=== PATIENT | male | born 1945 | race Caucasian/White ===

== ENCOUNTER 2019-08-17 17:09 | Inpatient (IN) ==
--- NOTE | 2019-08-17 19:00 | Emergency Department Note ---
History of Present Illness General Chief complaint: Infection, Wound Stated complaint: RT FOOT OPEN WOUND, BLACK Time Seen by Provider: 08/17/19 18:46 History of Present Illness Maximum Pain Intensity: 8 This is a 74-year-old male with a history of insulin-dependent diabetes, open heart surgery currently anticoagulated on Coumadin that presents to the emergency department via private vehicle accompanied by with complaints of "right foot open wound, black". The patient states this all began 3 months ago. He went to have a toenail removed by Dr. Rios, tablet tester in the [place] area. Patient states that then he returned and there was another procedure and then he notes an infection later developed and he had to go to the [facility] and was admitted over the of this past year for 4 days. He states that he was discharged home on p.o. antibiotics and then followed up with Dr. Delaney, tablet tester. He was then placed upon Keflex. Patient notes that over the past few days the redness has increased as well as soreness in the right foot. He was concerned therefore prompting his arrival here today. His current pain is an 8/10. Home Medications Home Medications Medication Instructions Recorded Confirmed Type aspirin [Aspirin Low Dose] 81 mg PO DAILY 08/17/19 08/17/19 History atorvastatin 80 mg PO DAILY 08/17/19 08/17/19 History carvedilol 3.125 mg PO BIDM 08/17/19 08/17/19 History cephalexin 500 mg PO Q8H 08/17/19 08/17/19 History furosemide 40 mg PO DAILY PRN 08/17/19 08/17/19 History insulin glargine [Lantus Solostar 40 unit SUBCUT HS 08/17/19 08/17/19 History U-100 Insulin] losartan 25 mg PO DAILY 08/17/19 08/17/19 History oxycodone 5 mg PO Q6H PRN 08/17/19 08/17/19 History spironolactone 25 mg PO DAILY 08/17/19 08/17/19 History warfarin 10 mg PO DAILY 08/17/19 08/17/19 History Allergies Allergy/AdvReac Type Severity Reaction Status Date / Time No Known Allergies Allergy Unverified 08/17/19 21:21 Past Med/Surg History Medical History Diabetes Surgical History History of open heart surgery Social History Preferred Language: [place] Feels Safe at Home: Yes Smoking Status: Former smoker Review of Systems A total of 10 systems reviewed and were otherwise negative Physical Exam Vital Signs Vital Signs - 24 hr 08/17/19 17:20 08/17/19 19:09 08/17/19 21:09 Temperature 36.6 C Temperature Source Oral Pulse Rate 84 Pulse Rate [Apical] 75 85 Pulse Rhythm Regular Pulse Strength Normal Respiratory Rate 20 20 20 Respiratory Effort / Characteristics Non-Labored Spontaneous Respiratory Depth Normal Respiratory Pattern Regular Blood Pressure 116/63 Blood Pressure [Left Arm] 120/62 133/56 L Blood Pressure Mean 80 Blood Pressure Mean [Left Arm] 81 81 Blood Pressure Position Sitting Pulse Oximetry 96 98 97 Oxygen Delivery Method Room Air Room Air Room Air Sepsis Recent Fever Within 48 Hours No Sepsis New/Unexplained Change in Mental Status No Sepsis Action Taken by Nursing No Action Required 08/17/19 22:25 Temperature Temperature Source Pulse Rate Pulse Rate [Apical] 80 Pulse Rhythm Pulse Strength Respiratory Rate 21 Respiratory Effort / Characteristics Respiratory Depth Respiratory Pattern Blood Pressure Blood Pressure [Left Arm] 136/67 Blood Pressure Mean Blood Pressure Mean [Left Arm] 90 Blood Pressure Position Pulse Oximetry 94 Oxygen Delivery Method Room Air Sepsis Recent Fever Within 48 Hours Sepsis New/Unexplained Change in Mental Status Sepsis Action Taken by Nursing VITAL SIGNS - Vital signs and nursing notes were reviewed. Stable and afebrile. GENERAL -74-year-old male appearing his stated age who is in no acute distress. Communicates well with provider and answers questions appropriately. SKIN -the right first toe is black in color with breakdown of tissue on the medial aspect with purplish hue and decreased cap refill on the lateral aspect and both of these color deformities extend to the MTP joint. There is then erythema that extends into much of the foot. Patient is tender throughout the right foot as well as right ankle region. The remainder of the toes are within normal limits. HEAD - NC/AT. EYES - Sclera anicteric. MOUTH/OROPHARYNX - Without perioral cyanosis. LUNGS: Normal vesicular breath sounds CTA B/L. No wheezes, rales, or rhonchi appreciated. CARDIAC - RRR with S1/S2. No murmur, rubs, or gallops appreciated. EXTREMITIES - No clubbing or peripheral cyanosis. No pretibial edema present. Skin as above. Tenderness overlying the right foot and ankle. Erythema extends from the right first MTP into the right ankle region. +5/5 strength noted in UE/LE bilaterally. NEUROLOGIC - Cranial nerves II through XII grossly intact. There is vascular deficit in the right first toe. PSYCH - A&O, and cooperates fully with examiner. Pt is very pleasant and interacts well with examiner. Course Administered Medications Discontinued Medications Piperacillin Sod/Tazobactam Sod (Zosyn) 4.5 gm in 120 mls @ 240 mls/hr IV NOW ONE Stop: 08/17/19 19:37 Last Infusion: 08/17/19 20:11 Dose: 0 mls/hr Documented by: [id number] Admin: 08/17/19 19:37 Dose: 240 mls/hr Documented by: [id number] Vancomycin HCl 2,250 mg/ (Sodium Chloride) 545 mls @ 200 mls/hr IV NOW ONE Stop: 08/17/19 22:33 Last Admin: 08/17/19 22:08 Dose: 200 mls/hr Documented by: [id number] Insulin Glargine (Lantus Solostar Pen) 5 units SC NOW STA Stop: 08/17/19 20:40 Last Admin: 08/17/19 22:08 Dose: 5 units Documented by: [id number] Cosigned by: [id number] Medical Decision Making Laboratory Data Result diagrams: 08/17/19 19:00 08/17/19 19:00 Lab Results 08/17/19 08/17/19 08/17/19 Range/Units 19:00 19:00 19:00 WBC 9.62 (4.8-10.8) K/uL RBC 4.20 L (4.7-6.1) M/uL Hgb 12.2 L (14.0-18.0) g/dL Hct 36.3 L (42-52) % MCV 86.4 (80-100) fL MCH 29.0 (25-34) pg MCHC 33.6 (32-36) g/dL RDW Std Deviation 42.0 (36.4-46.3) fL RDW Coeff of Yenny 13.3 (11.5-14.5) % Plt Count 168 (130-400) K/uL MPV 10.2 (7.4-10.4) fL Immature Gran % (Auto) 0.1 % Neut % (Auto) 83.7 % Lymph % (Auto) 9.6 % [place] % (Auto) 5.6 % Eos % (Auto) 0.8 % Baso % (Auto) 0.2 % Immature Gran # (Auto) 0.01 (0.00-0.02) K/uL Neut # (Auto) 8.05 H (1.4-6.5) K/uL Lymph # (Auto) 0.92 L (1.2-3.4) K/uL [place] # (Auto) 0.54 (0.11-0.59) K/uL Eos # (Auto) 0.08 (0-0.5) K/uL Baso # (Auto) 0.02 (0-0.2) K/uL ESR 85 H (0-14) mm/hr PT 29.0 H (9.0-12.0) Seconds INR 3.1 H (0.9-1.1) APTT 44.5 H (21.0-31.0) Seconds PTT Ratio 1.6 Sodium (136-145) mmol/L Potassium (3.5-5.1) mmol/L Chloride (98-107) mmol/L Carbon Dioxide (21-32) mmol/L Anion Gap (3-11) BUN (7-18) mg/dl Creatinine (0.6-1.4) mg/dl Est Cr Clr Drug Dosing ml/min Est GFR ( Amer) Est GFR (Non-Af Amer) BUN/Creatinine Ratio (10-20) Glucose (70-99) mg/dl Lactate (0.4-2.0) mmol/L Calcium (8.5-10.1) mg/dl Magnesium (1.8-2.4) mg/dl Total Bilirubin (0.2-1) mg/dl AST (15-37) U/L ALT (12-78) U/L Alkaline Phosphatase (45-117) U/L C-Reactive Protein (0-0.29) mg/dl Total Protein (6.4-8.2) gm/dl Albumin (3.4-5.0) gm/dl Globulin (2.5-4.0) gm/dl Albumin/Globulin Ratio (0.9-2) TSH (0.300-4.500) uIu/ml 08/17/19 08/17/19 Range/Units 19:00 19:00 WBC (4.8-10.8) K/uL RBC (4.7-6.1) M/uL Hgb (14.0-18.0) g/dL Hct (42-52) % MCV (80-100) fL MCH (25-34) pg MCHC (32-36) g/dL RDW Std Deviation (36.4-46.3) fL RDW Coeff of Yenny (11.5-14.5) % Plt Count (130-400) K/uL MPV (7.4-10.4) fL Immature Gran % (Auto) % Neut % (Auto) % Lymph % (Auto) % [place] % (Auto) % Eos % (Auto) % Baso % (Auto) % Immature Gran # (Auto) (0.00-0.02) K/uL Neut # (Auto) (1.4-6.5) K/uL Lymph # (Auto) (1.2-3.4) K/uL [place] # (Auto) (0.11-0.59) K/uL Eos # (Auto) (0-0.5) K/uL Baso # (Auto) (0-0.2) K/uL ESR (0-14) mm/hr PT (9.0-12.0) Seconds INR (0.9-1.1) APTT (21.0-31.0) Seconds PTT Ratio Sodium 132 L (136-145) mmol/L Potassium 5.1 (3.5-5.1) mmol/L Chloride 100 (98-107) mmol/L Carbon Dioxide 28 (21-32) mmol/L Anion Gap 4.0 (3-11) BUN 43 H (7-18) mg/dl Creatinine 1.58 H (0.6-1.4) mg/dl Est Cr Clr Drug Dosing 47.3 ml/min Est GFR ( Amer) 49.2 Est GFR (Non-Af Amer) 42.5 BUN/Creatinine Ratio 27.2 H (10-20) Glucose 247 H (70-99) mg/dl Lactate 1.1 (0.4-2.0) mmol/L Calcium 10.5 H (8.5-10.1) mg/dl Magnesium 2.1 (1.8-2.4) mg/dl Total Bilirubin 0.8 (0.2-1) mg/dl AST 10 L (15-37) U/L ALT 17 (12-78) U/L Alkaline Phosphatase 105 (45-117) U/L C-Reactive Protein 11.50 H (0-0.29) mg/dl Total Protein 7.9 (6.4-8.2) gm/dl Albumin 3.3 L (3.4-5.0) gm/dl Globulin 4.6 H (2.5-4.0) gm/dl Albumin/Globulin Ratio 0.7 L (0.9-2) TSH 0.515 (0.300-4.500) uIu/ml Imaging Data Radiologist's Impression: XR foot RT min 3V routine CLINICAL HISTORY: 74 years-old Male presenting with R 1st toe, black/purple, surrounding erythema. TECHNIQUE: Frontal, oblique, and lateral views of the right foot were obtained. COMPARISON: None. FINDINGS: The right first toe demonstrate soft tissue emphysema and soft tissue irregularity along the medial aspect. There is joint space loss of the interphalangeal joint to a mild to moderate degree. No evidence of osseous erosion or periosteal reaction. Mild sclerosis of the proximal phalanx of the first toe is suspected as well as sclerosis of the head of the first metatarsal. No acute fracture or malalignment. Changes are evident at the first metatarsophalangeal joint with osteophytosis and minimal joint space loss. Atherosclerosis is evident. IMPRESSION: 1. Soft tissue ulceration and emphysema of the first toe concerning for an open wound versus a gas-forming infection. No radiographic evidence of osteomyelitis apart from nonspecific sclerosis of the proximal phalanx of the first toe and head of the first metatarsal. 2. Sclerosis at these sites could suggest underlying osteonecrosis. 3. Mild degenerative changes at the first MTP joint and first interphalangeal joint. 4. No acute osseous injury. ACT 112: Negative or not required by law. Electronically signed by: Prem Mera M.D. 08/17/2019 7:39 PM US arterial duplex LE RT CLINICAL HISTORY: 74 years-old Male presenting with R 1st toe black/purple w/erythema into foot/ankle. TECHNIQUE: Real-time grayscale and color and spectral Doppler ultrasound imaging of the right lower extremity arteries was performed. Measurements calculated based on NASCET criteria. COMPARISON: None. FINDINGS: RIGHT: Common femoral artery: Extensive atherosclerotic plaque. Monophasic waveforms. Peak systolic velocity (PSV) 90 cm/s. Deep femoral artery: Atherosclerotic plaque at the origin. Monophasic waveforms. PSV 80 cm/s. Superficial femoral artery: Intimal irregularity with atherosclerotic plaque including extensively calcified plaque. Monophasic waveforms. PSV 77-101 cm/s. Popliteal artery: Atherosclerosis with multifocal calcified plaque. Monophasic waveforms. PSV 86 cm/s. Anterior tibial artery: Atherosclerosis. Monophasic waveforms. PSV 31-61 cm/s. Posterior tibial artery: Atherosclerosis. Monophasic waveforms. PSV 43-95 cm/s. Peroneal artery: Atherosclerosis. Monophasic waveforms. PSV 56-78 cm/s. Dorsalis pedis: Atherosclerosis. Monophasic waveforms. PSV 32 cm/s. ANKLE/BRACHIAL INDEX (SENIA): Patient unable to tolerate. Brachial: Right: mmHg. Left: mmHg. Ankle (posterior tibial): Right: mmHg. Left: mmHg. Ankle (dorsalis pedis): Right: mmHg. Left: mmHg. Ankle/brachial index: Right: , Left: . Reference ranges: Normal Ankle/Brachial Index (SENIA) 1.0-1.4; 0.91-0.99 borderline; < or = 0.9 abnormal (0.7-0.89 mild, 0.51-0.69 moderate, < or = 0.5 severe peripheral arterial disease). Normal Toe/Brachial Index (TBI) > or = 0.6; < 0.6 abnormal (0.34-0.59 mild, 0.12-0.34 moderate, < or = 0.11 severe peripheral arterial disease). IMPRESSION: 1. Diffuse atherosclerosis with blunting of waveforms due to flow limitations though vasculature remains patent to the level of the foot. 2. Unable to perform ankle-brachial indices. ACT 112: Negative or not required by law. Electronically signed by: Prem Mera M.D. 08/17/2019 9:18 PM MDM Narrative Patient was seen and evaluated as above in room C05. Review was performed of nursing notes and vital signs. After obtaining a thorough history and physical examination the above work up was performed. He presents to us today with what appears to be a necrotic right first toe. There is overlying cellulitis extending into the foot and ankle region. Patient is a diabetic. His vital signs are stable on entry. Blood cultures, lactic acid, and routine labs were drawn. There is no leukocytosis. There is anemia with hemoglobin of 12.2. ESR 85. INR 3.1. BUN/creatinine are elevated. Creatinine 1.58. Glucose 247. C- reactive protein 11.5. TSH reveals a euthyroid state. Patient's right lower extremity arterial ultrasound does show diffuse atherosclerosis with blunting of waveforms due to flow limitations however, vascular remains patent to the level of the foot. Given the extent of the patient's necrotic toe as well as cellulitis I do believe that further evaluation and management is warranted in the inpatient setting. On arrival he was empirically started on Zosyn as well as vancomycin once renal function was resulted. These were dosed with the input of the pharmacist. Foot x-ray as above and is concerning for ulceration and sclerosis at the sites possibly suggesting osteonecrosis which clinically is my concern. I did consult orthopedics, Dr. Petersen and we discussed the case. He will see the patient tomorrow here in the inpatient setting which I do believe is reasonable. I do not believe that the patient requires emergent amputation here tonight in the emergency department. I did answer the patient's questions and informed him upon plan of care. I then discussed the case with the hospitalist who will admit the patient for further evaluation and management. Please refer to further documentation regarding his stay. Case was discussed with the attending physician. I attest that I have personally reviewed the patient medication list. I attest that I have reviewed the patient's blood pressure and it was found to be normal. GCS: 15 In the evaluation and treatment of this patient the following differential diagnoses were entertained: Fracture, dislocation, subluxation, necrosis, gas- forming organism, abscess, cellulitis, sepsis, among others. Impression & Plan Necrosis of toe, Cellulitis of foot, right Discharge Plan Visit Data Chief Complaint: Infection, Wound Stated Complaint: RT FOOT OPEN WOUND, BLACK ED Provider: Pranay Escalera ED Midlevel Provider: Vinnie Garcia Discharge Problem: Necrosis of toe, Cellulitis of foot, right Patient Disposition: Admitted As Inpatient Condition: Good Forms Stand Alone Forms: My [facility] Prescriptions Prescriptions: No Action carvedilol 3.125 mg Tablet 3.125 mg PO BIDM RF: 0 losartan 25 mg tablet 25 mg PO DAILY RF: 0 furosemide 40 mg tablet 40 mg PO DAILY PRN (Reason: WEIGHT GAIN/FLUID RETENTION) RF: 0 spironolactone 25 mg tablet 25 mg PO DAILY RF: 0 Lantus Solostar U-100 Insulin 100 unit/mL (3 mL) insulin pen 40 unit SUBCUT HS RF: 0 atorvastatin 80 mg tablet 80 mg PO DAILY RF: 0 cephalexin 500 mg capsule 500 mg PO Q8H RF: 0 warfarin 5 mg tablet 10 mg PO DAILY RF: 0 oxycodone 5 mg tablet 5 mg PO Q6H PRN (Reason: Pain) RF: 0 aspirin [Aspirin Low Dose] 81 mg Tablet,Delayed Release (Dr/Ec) 81 mg PO DAILY RF: 0 Referrals Referrals: Mikey Segura DO [Primary Care Provider] -
[2019-08-17] MEDS ORDERED: PIPERACILL/TAZOBAC CONSULT ACTIVE PRN (19:08)
[2019-08-17] MEDS ORDERED: PIPERACILLIN/TAZOBACTAM 4.5 GM/120 ML BAG IV ONE (19:08)
[2019-08-17 19:20] LABS: Basophils # (auto) 0.02 K/uL (0-0.2); Basophils % (auto) 0.2 %; Eosinophils # (auto) 0.08 K/uL (0-0.5); Eosinophils % (auto) 0.8 %; Hematocrit (blood only) 36.3 % (42-52); Hemoglobin 12.2 g/dL (14.0-18.0); Immature Granulocytes # (auto) 0.01 K/uL (0.00-0.02); Immature Granulocytes % (auto) 0.1 %; Lymphocytes # (auto) 0.92 K/uL (1.2-3.4); Lymphocytes % (auto) 9.6 %; Mean Corpuscular Hgb Conc 33.6 g/dL (32-36); Mean Corpuscular Volume 86.4 fL (80-100); Mean Platelet Volume 10.2 fL (7.4-10.4); Monocytes # (auto) 0.54 K/uL (0.11-0.59); Monocytes % (auto) 5.6 %; Neutrophils # (auto) 8.05 K/uL (1.4-6.5); Neutrophils % (auto) 83.7 %; Platelet Count 168 K/uL (130-400); RDW Coefficient of Variation 13.3 % (11.5-14.5); White Blood Count 9.62 K/uL (4.8-10.8)
--- NOTE | 2019-08-17 19:41 | XRay Report ---
XR foot RT min 3V routine CLINICAL HISTORY: 74 years-old Male presenting with R 1st toe, black/purple, surrounding erythema. TECHNIQUE: Frontal, oblique, and lateral views of the right foot were obtained. COMPARISON: None. FINDINGS: The right first toe demonstrate soft tissue emphysema and soft tissue irregularity along the medial a spect. There is joint space loss of the interphalangeal joint to a mild to moderate degree. No eviden ce of osseous erosion or periosteal reaction. Mild sclerosis of the proximal phalanx of the first toe is suspected as well as sclerosis of the head of the first metatarsal. No acute fracture or malalign ment. Changes are evident at the first metatarsophalangeal joint with osteophytosis and minimal joint space loss. Atherosclerosis is evident. IMPRESSION: 1. Soft tissue ulceration and emphysema of the first toe concerning for an open wound versus a gas-f orming infection. No radiographic evidence of osteomyelitis apart from nonspecific sclerosis of the p roximal phalanx of the first toe and head of the first metatarsal. 2. Sclerosis at these sites could suggest underlying osteonecrosis. 3. Mild degenerative changes at the first MTP joint and first interphalangeal joint. 4. No acute osseous injury. ACT 112: Negative or not required by law. Electronically signed by: Prem Mera M.D. 08/17/2019 7:39 PM
[2019-08-17 19:42] LABS: INR 3.1 (0.9-1.1); Partial Thromboplastin Ratio 1.6; Partial Thromboplastin Time 44.5 Seconds (21.0-31.0)
[2019-08-17 19:45] LABS: Albumin Level 3.3 gm/dl (3.4-5.0); BUN Creatinine Ratio 27.2 (10-20); Calcium 10.5 mg/dl (8.5-10.1); Creatinine Clr Calc Pharmacy 47.3 ml/min; Est GFR (African American) 49.2; Est GFR (Non-African American) 42.5; Magnesium 2.1 mg/dl (1.8-2.4); Potassium 5.1 mmol/L (3.5-5.1)
[2019-08-17 19:48] LABS: Albumin Globulin Ratio 0.7 (0.9-2); Bilirubin,Total 0.8 mg/dl (0.2-1); C Reactive Protein 11.5 mg/dl (0-0.29); Globulin 4.6 gm/dl (2.5-4.0); Total Protein 7.9 gm/dl (6.4-8.2)
[2019-08-17] MEDS ORDERED: VANCOMYCIN HCL 2,250 MG in SODIUM CHLORIDE 0.9% 500 ML IV ONE (19:50)
[2019-08-17] MEDS ORDERED: VANCOMYCIN CONSULT ACTIVE PRN (19:50)
[2019-08-17] MEDS ORDERED: INSULIN GLARGINE SOLOSTAR 100 UNITS/ML 3 ML PEN SC STA (20:39)
[2019-08-17 21:01] LABS: Thyroid Stimulating Hormone 0.515 uIu/ml (0.300-4.500)
--- NOTE | 2019-08-17 21:20 | Ultrasound Report ---
US arterial duplex LE RT CLINICAL HISTORY: 74 years-old Male presenting with R 1st toe black/purple w/erythema into foot/ankle . TECHNIQUE: Real-time grayscale and color and spectral Doppler ultrasound imaging of the right lower e xtremity arteries was performed. Measurements calculated based on NASCET criteria. COMPARISON: None. FINDINGS: RIGHT: Common femoral artery: Extensive atherosclerotic plaque. Monophasic waveforms. Peak systolic velocity (PSV) 90 cm/s. Deep femoral artery: Atherosclerotic plaque at the origin. Monophasic waveforms. PSV 80 cm/s. Superficial femoral artery: Intimal irregularity with atherosclerotic plaque including extensively ca lcified plaque. Monophasic waveforms. PSV 77-101 cm/s. Popliteal artery: Atherosclerosis with multifocal calcified plaque. Monophasic waveforms. PSV 86 cm/s . Anterior tibial artery: Atherosclerosis. Monophasic waveforms. PSV 31-61 cm/s. Posterior tibial artery: Atherosclerosis. Monophasic waveforms. PSV 43-95 cm/s. Peroneal artery: Atherosclerosis. Monophasic waveforms. PSV 56-78 cm/s. Dorsalis pedis: Atherosclerosis. Monophasic waveforms. PSV 32 cm/s. ANKLE/BRACHIAL INDEX (SENIA): Patient unable to tolerate. Brachial: Right: mmHg. Left: mmHg. Ankle (posterior tibial): Right: mmHg. Left: mmHg. Ankle (dorsalis pedis): Right: mmHg. Left: mmHg. Ankle/brachial index: Right: , Left: . Reference ranges: Normal Ankle/Brachial Index (SENIA) 1.0-1.4; 0.91-0.99 borderline; < or = 0.9 abnormal (0.7-0.89 mild, 0.51-0.69 moderate, < or = 0.5 severe peripheral arterial disease). Normal Toe/Brachial Index (TBI) > or = 0.6; < 0.6 abnormal (0.34-0.59 mild, 0.12-0.34 moderate, < or = 0.11 severe peripheral arterial disease). IMPRESSION: 1. Diffuse atherosclerosis with blunting of waveforms due to flow limitations though vasculature rem ains patent to the level of the foot. 2. Unable to perform ankle-brachial indices. ACT 112: Negative or not required by law. Electronically signed by: Prem Mera M.D. 08/17/2019 9:18 PM
--- NOTE | 2019-08-17 21:41 | XRay Report ---
XR chest 1V portable CLINICAL HISTORY: 73 years-old Male presenting with renal failure. TECHNIQUE: Portable upright AP view of the chest was obtained. COMPARISON: None. FINDINGS: Left subclavian implanted cardiac defibrillator with single lead to the right ventricular apex. Media n sternotomy wires. Atherosclerosis of the aortic arch. Cardiac silhouette moderately enlarged. Mild pulmonary vascular prominence. Lungs may be mildly hyperinflated. No focal opacity. No large effusion or pneumothorax. Degenerative changes of the thoracic spine. Upper abdomen normal. IMPRESSION: 1. Cardiomegaly with mild volume overload. No advanced congestive change or pulmonary edema. ACT 112: Negative or not required by law. Electronically signed by: Prem Mera M.D. 08/17/2019 9:40 PM
--- NOTE | 2019-08-17 22:05 | History & Physical Report ---
Date of Service August 17, 2019 Assessment & Plan (1) CHF (congestive heart failure): chronic systolic heart failure secondary ischemic cardiomyopathy (EF less than 20% TTE, 2016) status post ICD, CAD as per records Equivocal volume status Congestion on x-ray although patient seems intravascularly dry w/ ARF on CKD, hypercalcemia LV aneurysm status post surgery on Coumadin, INR valvular heart disease (mild MR/ as per records) CAD/PVD as per records Gangrenous right great toe (diabetic foot infection) DM2, insulin requiring, suboptimal control as of recent outpatient hemoglobin A1c of 8.17 April 2019 chronic anemia, hemoglobin slightly lower than baseline past tobacco abuse PCU Albumin 1 dose for now Strict I/Os, daily weights Update TTE given history of valvular heart disease on 2016 echo Hold losartan, spironolactone for now given borderline hyperkalemia Orthopedics consult RE diabetic toe infection (ER provider already in touch with Dr. Petersen.) Cardiology consult to optimize patient cardiac status prior to surgery. Appropriate to hold Coumadin for now. Basal insulin, ISS BG goal [id number], update hemoglobin A1c Anemia work-up, transfuse PRBC if hemoglobin less than 8 and or for symptomatic anemia DVT prophylaxis. SCDs if INR less than 2 while Coumadin on hold Full code Patient's requesting updates from providers. . Jo Zhao, contact #[phone]. Case discussed Dr. Petersen. He will evaluate patient in AM. . History of Present Illness Chief Complaint: Worsening right great toe infection Primary Care Provider: Mikey Segura DO History obtained from patient, family, and records. Medical history significant for chronic systolic heart failure secondary ischemic cardiomyopathy (EF less than 20% TTE, 2016) status post ICD, LV aneurysm status post surgery on Coumadin, valvular heart disease (mild MR/ as per records), CAD/PVD as per records, DM2, insulin requiring, CRI (baseline creatinine 1.3-1.4), chronic anemia (baseline hemoglobin of 13), past tobacco abuse. Last month, patient developed right great toe swelling after toenail taken out by his coat maker. Patient confined for a few days at [facility]. Patient discharged on antibiotic course which did not really help swelling as per patient. 2 weeks ago, patient noted left great toe turning black. With increased pain. No fever, no chills. No purulent drainage as per patient. Patient denies chest pain, S OB, unusual fluid retention. Patient directed to ER by PCP when called office today. 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 Allergies Allergy/AdvReac Type Severity Reaction Status Date / Time No Known Allergies Allergy Unverified 08/17/19 21:21 Home Medications Home Medications Medication Instructions Recorded Confirmed Type aspirin [Aspirin Low Dose] 81 mg PO DAILY 08/17/19 08/17/19 History atorvastatin 80 mg PO DAILY 08/17/19 08/17/19 History carvedilol 3.125 mg PO BIDM 08/17/19 08/17/19 History cephalexin 500 mg PO Q8H 08/17/19 08/17/19 History furosemide 40 mg PO DAILY PRN 08/17/19 08/17/19 History insulin glargine [Lantus Solostar 40 unit SUBCUT HS 08/17/19 08/17/19 History U-100 Insulin] losartan 25 mg PO DAILY 08/17/19 08/17/19 History oxycodone 5 mg PO Q6H PRN 08/17/19 08/17/19 History spironolactone 25 mg PO DAILY 08/17/19 08/17/19 History warfarin 10 mg PO DAILY 08/17/19 08/17/19 History Past Med/Surg History Medical History (Updated 08/18/19 @ 16:05 by Obinna Rasmussen MD) Anemia Aortic stenosis CAD (coronary artery disease) CHF (congestive heart failure) Diabetes Ischemic cardiomyopathy Left ventricular aneurysm Necrosis of toe (Acute) Renal failure (ARF), acute on chronic Surgical History (Updated 08/18/19 @ 15:58 by Obinna Rasmussen MD) History of open heart surgery History of open heart surgery S/P ICD (internal cardiac defibrillator) procedure Social History Preferred Language: Bengali Communication Ability: Effective Beliefs That Will Affect Care: None Current Living Situation: Spouse Other Information That Helps Us Care for You: No Feels Safe at Home: Yes Safety Concerns: Feels Safe At This Time Smoking Status: Former smoker Do You Dip or Chew Tobacco: No ; Hx Alcohol Use: No Hx Substance Use: No Review of Systems Review of Systems: As per HPI, all 10 systems reviewed, all other ROS negative Physical Exam Physical Exam: GENERAL: uncomfortable, no respiratory distress SKIN: Pallor , warm HEENT: Pale palpebral conjunctivae, no ptosis, dry buccal mucosa, nasal cannula in place NECK : Supple, no tenderness CHEST : Decreased breath sounds , no tenderness HEART : Diminished S1-S2, systolic murmur ABDOMEN: Some distention, nontender EXTREMITIES : Minimal LE swelling, no LE tenderness, right toe gangrene with tenderness, no other conspicuous deformities noted NEUROLOGIC : Coherent, no facial asymmetry, mild hearing impairment, no other gross focality Results & Data Vital Signs (Past 12 Hours) Vital Signs Temp Pulse Resp BP Pulse Ox 08/17/19 17:20 36.6 C 84 20 116/63 96 Laboratory Results Laboratory Results WBC 9.62 K/uL (4.8-10.8) 08/17/19 19:00 RBC 4.20 M/uL (4.7-6.1) L 08/17/19 19:00 Hgb 12.2 g/dL (14.0-18.0) L 08/17/19 19:00 Hct 36.3 % (42-52) L 08/17/19 19:00 MCV 86.4 fL (80-100) 08/17/19 19:00 MCH 29.0 pg (25-34) 08/17/19 19:00 MCHC 33.6 g/dL (32-36) 08/17/19 19:00 RDW Std Deviation 42.0 fL (36.4-46.3) 08/17/19 19:00 RDW Coeff of Yenny 13.3 % (11.5-14.5) 08/17/19 19:00 Plt Count 168 K/uL (130-400) 08/17/19 19:00 MPV 10.2 fL (7.4-10.4) 08/17/19 19:00 Immature Gran % (Auto) 0.1 % 08/17/19 19:00 Neut % (Auto) 83.7 % 08/17/19 19:00 Lymph % (Auto) 9.6 % 08/17/19 19:00 [place] % (Auto) 5.6 % 08/17/19 19:00 Eos % (Auto) 0.8 % 08/17/19 19:00 Baso % (Auto) 0.2 % 08/17/19 19:00 Immature Gran # (Auto) 0.01 K/uL (0.00-0.02) 08/17/19 19:00 Neut # (Auto) 8.05 K/uL (1.4-6.5) H 08/17/19 19:00 Lymph # (Auto) 0.92 K/uL (1.2-3.4) L 08/17/19 19:00 [place] # (Auto) 0.54 K/uL (0.11-0.59) 08/17/19 19:00 Eos # (Auto) 0.08 K/uL (0-0.5) 08/17/19 19:00 Baso # (Auto) 0.02 K/uL (0-0.2) 08/17/19 19:00 ESR 85 mm/hr (0-14) H 08/17/19 19:00 PT 29.0 Seconds (9.0-12.0) H 08/17/19 19:00 INR 3.1 (0.9-1.1) H 08/17/19 19:00 APTT 44.5 Seconds (21.0-31.0) H 08/17/19 19:00 PTT Ratio 1.6 08/17/19 19:00 Sodium 132 mmol/L (136-145) L 08/17/19 19:00 Potassium 5.1 mmol/L (3.5-5.1) 08/17/19 19:00 Chloride 100 mmol/L (98-107) 08/17/19 19:00 Carbon Dioxide 28 mmol/L (21-32) 08/17/19 19:00 Anion Gap 4.0 (3-11) 08/17/19 19:00 BUN 43 mg/dl (7-18) H 08/17/19 19:00 Creatinine 1.58 mg/dl (0.6-1.4) H 08/17/19 19:00 Est Cr Clr Drug Dosing 47.3 ml/min 08/17/19 19:00 Est GFR ( Amer) 49.2 08/17/19 19:00 Est GFR (Non-Af Amer) 42.5 08/17/19 19:00 BUN/Creatinine Ratio 27.2 (10-20) H 08/17/19 19:00 Glucose 247 mg/dl (70-99) H 08/17/19 19:00 Lactate 1.1 mmol/L (0.4-2.0) 08/17/19 19:00 Calcium 10.5 mg/dl (8.5-10.1) H 08/17/19 19:00 Magnesium 2.1 mg/dl (1.8-2.4) 08/17/19 19:00 Total Bilirubin 0.8 mg/dl (0.2-1) 08/17/19 19:00 AST 10 U/L (15-37) L 08/17/19 19:00 ALT 17 U/L (12-78) 08/17/19 19:00 Alkaline Phosphatase 105 U/L (45-117) 08/17/19 19:00 C-Reactive Protein 11.50 mg/dl (0-0.29) H 08/17/19 19:00 Total Protein 7.9 gm/dl (6.4-8.2) 08/17/19 19:00 Albumin 3.3 gm/dl (3.4-5.0) L 08/17/19 19:00 Globulin 4.6 gm/dl (2.5-4.0) H 08/17/19 19:00 Albumin/Globulin Ratio 0.7 (0.9-2) L 08/17/19 19:00 TSH 0.515 uIu/ml (0.300-4.500) 08/17/19 19:00 Diagnostic Findings Right foot x-ray: 1. Soft tissue ulceration and emphysema of the first toe concerning for an open wound versus a gas-forming infection. No radiographic evidence of osteomyelitis apart from nonspecific sclerosis of the proximal phalanx of the first toe and head of the first metatarsal. 2. Sclerosis at these sites could suggest underlying osteonecrosis. 3. Mild degenerative changes at the first MTP joint and first interphalangeal joint. 4. No acute osseous injury. Arterial Dopplers ultrasound RLE : 1. Diffuse atherosclerosis with blunting of waveforms due to flow limitations though vasculature remains patent to the level of the foot. 2. Unable to perform ankle-brachial indices. Chest x-ray : Cardiomegaly with mild volume overload. No advanced congestive change or pulmonary edema. EKG as per my interpretation : Rate 70, NSR, 1 AVB, LAD, LAFB, diffuse T wave inversions
[2019-08-17] MEDS ORDERED: ALBUMIN 25% 50 ML IV STA (22:19)
[2019-08-18] MEDS ORDERED: GLUCOSE 10 TABS/TUBE PO PRN (00:08)
[2019-08-18] MEDS ORDERED: DEXTROSE 50% 50 ML SYRINGE IV PRN (00:08)
[2019-08-18] MEDS ORDERED: GLUCAGON FOR INJ 1 MG VIAL SQ PRN (00:08)
[2019-08-18] MEDS ORDERED: PROMETHAZINE HCL 12.5 MG in SODIUM CHLORIDE 0.9% 50 ML IV PRN (00:08)
[2019-08-18] MEDS ORDERED: NITROGLYCERIN SL 0.4 MG/TAB TAB SL PRN (00:08)
[2019-08-18] MEDS ORDERED: GLUCOSE 40% GEL 15 GM TUBE PO PRN (00:08)
[2019-08-18] MEDS ORDERED: CARBOHYDRATES FOR HYPOGLYCEMIA PO PRN (00:08)
[2019-08-18] MEDS ORDERED: INSULIN GLARGINE SOLOSTAR 100 UNITS/ML 3 ML PEN SC STA ×2 (00:08→07:46)
[2019-08-18] MEDS ORDERED: DAPTOMYCIN CONSULT ACTIVE PRN (00:21)
[2019-08-18] MEDS: ACETAMINOPHEN 325 MG TAB PO PRN (01:02)
[2019-08-18] MEDS: PIPERACILLIN/TAZOBACTAM 3.375 GM in DEXTROSE 5% 100 ML IV SCH ×3 (01:03→18:44)
[2019-08-18] MEDS: INSULIN ASPART 100 UNITS/ML 3 ML PEN SC SCH ×5 (01:08→20:53)
[2019-08-18] MEDS: DAPTOmycin 300 MG in SYRINGE 0 ML IV SCH (02:29)
[2019-08-18 06:33] LABS: Estimated Average Glucose 223 mg/dl; Hemoglobin A1C 9.4 % (4.5-5.6)
[2019-08-18 06:58] LABS: Basophils # (auto) 0.02 K/uL (0-0.2); Basophils % (auto) 0.3 %; Eosinophils # (auto) 0.18 K/uL (0-0.5); Eosinophils % (auto) 2.8 %; Hematocrit (blood only) 33.7 % (42-52); Hemoglobin 10.9 g/dL (14.0-18.0); Immature Granulocytes # (auto) 0.01 K/uL (0.00-0.02); Immature Granulocytes % (auto) 0.2 %; Lymphocytes # (auto) 0.57 K/uL (1.2-3.4); Mean Corpuscular Hemoglobin 28.4 pg (25-34); Mean Corpuscular Hgb Conc 32.3 g/dL (32-36); Mean Corpuscular Volume 87.8 fL (80-100); Mean Platelet Volume 10.1 fL (7.4-10.4); Monocytes # (auto) 1.01 K/uL (0.11-0.59); Monocytes % (auto) 15.9 %; Neutrophils # (auto) 4.56 K/uL (1.4-6.5); Neutrophils % (auto) 71.8 %; Platelet Count 147 K/uL (130-400); RDW Coefficient of Variation 13.2 % (11.5-14.5); RDW Standard Deviation 42.4 fL (36.4-46.3); Red Blood Count 3.84 M/uL (4.7-6.1); Reticulocyte % 1.2 % (0.5-2.0); Reticulocytes # 0.05 10^6/uL (0.02-0.10); White Blood Count 6.35 K/uL (4.8-10.8)
--- NOTE | 2019-08-18 07:23 | Orthopedic Consultation ---
Date of Consultation August 18, 2019 Assessment & Plan (1) Necrosis of toe: He has advanced necrosis of his right great toe. This will definitely need to be amputated. I am hoping I can just take it off at the level of the MTP joint to preserve a lot of his function. He is an uncontrolled diabetic and he also has some cardiac issues. His INR is currently 3.1. I would like to be able to remove it later today if possible. I am going to keep him n.p.o. for now. If he is unable to obtain cardiac clearance, or if we are unable to get the INR down some then we will push it off to a later date. I will being in discussions with the internal medicine team throughout the day to see if he is healthy enough to proceed with amputation later today or not. We talked at bedside about the amputation. He understands the risks, benefits, and alternatives to procedure would like to proceed. He is at increased risk for the procedure given his uncontrolled diabetes and he understands that if the wound from the amputation fails to heal that he may require a future amputations. The decision was made for surgery today, however, we are still waiting for medical clearance. Present on Admission?: Yes History of Present Illness Reason for Consultation: Necrotic right great toe Attending Physician: Bandar Zamora MD History of Present Illness Miguel Ángel is a pleasant 73-year-old male who is an uncontrolled diabetic. He never really had foot or lower extremity problems before. He has been seeing a stope miner up in [facility] even who was trimming his toenails of his right great toe. Unfortunately his toe became red and necrotic. He then went to [facility] and there was concerns for advanced necrosis and osteomyelitis. He was then transferred down to [facility] and admitted to the medical service. He has an elevated A1c and elevated glucose levels. He is having a lot of pain in his great toe. He is normally an independent ambulator without assistance but he is unable to ambulate with his toe the way it is. Orthopedics was consulted to evaluate and treat. Allergies Allergy/AdvReac Type Severity Reaction Status Date / Time No Known Allergies Allergy Unverified 08/17/19 21:21 Home Medications Home Medications Medication Instructions Recorded Confirmed Type aspirin [Aspirin Low Dose] 81 mg PO DAILY 08/17/19 08/17/19 History atorvastatin 80 mg PO DAILY 08/17/19 08/17/19 History carvedilol 3.125 mg PO BIDM 08/17/19 08/17/19 History cephalexin 500 mg PO Q8H 08/17/19 08/17/19 History furosemide 40 mg PO DAILY PRN 08/17/19 08/17/19 History insulin glargine [Lantus Solostar 40 unit SUBCUT HS 08/17/19 08/17/19 History U-100 Insulin] losartan 25 mg PO DAILY 08/17/19 08/17/19 History oxycodone 5 mg PO Q6H PRN 08/17/19 08/17/19 History spironolactone 25 mg PO DAILY 08/17/19 08/17/19 History warfarin 10 mg PO DAILY 08/17/19 08/17/19 History Patient History Medical History Diabetes Surgical History History of open heart surgery Social History Preferred Language: Amharic Beliefs That Will Affect Care: None Current Living Situation: Spouse Other Information That Helps Us Care for You: No Feels Safe at Home: Yes Safety Concerns: Feels Safe At This Time Smoking Status: Former smoker Hx Alcohol Use: No Hx Substance Use: No Review of Systems Review of Systems: All systems reviewed & are unremarkable except as noted in HPI & below Physical Exam Constitutional: WD/WN, vitals as above Eyes: PERRL, conjunctivae normal, anicteric sclerae ENMT: external ear and nose normal, oropharynx normal Neck: trachea midline, no thyromegaly Respiratory: normal respiratory effort Cardiovascular: RRR, no murmur, no edema Gastrointestinal (Abdomen): normal bowel sounds, soft, nontender, no hepatosplenomegaly Musculoskeletal: On physical examination of the right great toe, there is advanced necrosis throughout. The entire toe is black. The necrosis stops just distal to the MTP joint. He does have tenderness palpation especially at the distal MTP region. There is no cellulitis there are no other ulcerations of his leg. The rest of his leg actually looks pretty good. Psychiatric: A+Ox3, euthymic affect Results & Data Vital Signs (Past 12 Hours) Vital Signs Temp Pulse Pulse Resp BP BP Pulse Ox 08/18/19 03:00 36.7 C 72 19 125/62 92 08/18/19 01:26 79 08/17/19 23:45 36.6 C 77 18 159/70 H 96 08/17/19 23:37 81 20 133/60 99 08/17/19 22:25 80 21 136/67 94 08/17/19 21:09 85 20 133/56 L 97 Laboratory Results H & H 08/17/19 08/18/19 Range/Units 19:00 06:38 Hgb 12.2 L 10.9 L (14.0-18.0) g/dL Hct 36.3 L 33.7 L (42-52) % Coagulation 08/17/19 Range/Units 19:00 INR 3.1 H (0.9-1.1) PG Care Time/CCT Total # of Minutes Spent Total Time Spent with Patient: Total time spent is greater than 50% in coordination of care (as documented) at patient's floor/unit and/or counseling patient:
[2019-08-18 07:35] LABS: BUN Creatinine Ratio 29.9 (10-20); Calcium 9.9 mg/dl (8.5-10.1); Creatinine Clr Calc Pharmacy 47.7 ml/min; Est GFR (African American) 54.1; Est GFR (Non-African American) 46.7; Ferritin 991.9 ng/ml (8-388); Potassium 4.1 mmol/L (3.5-5.1)
[2019-08-18 07:52] LABS: INR 3.6 (0.9-1.1)
[2019-08-18] MEDS: HYDROmorphone INJ 0.5 MG/0.5 ML SYR IV PRN ×3 (08:20→23:27)
[2019-08-18 08:44] LABS: Folate (Folic Acid) 11.88 ng/ml (>5.38)
[2019-08-18] MEDS ORDERED: INSULIN GLARGINE SOLOSTAR 100 UNITS/ML 3 ML PEN SC SCH (09:00)
[2019-08-18] MEDS: CLINDAMYCIN 900 MG in DEXTROSE 5% 50 ML IV SCH ×2 (09:27→18:42)
[2019-08-18] MEDS: carvediloL 3.125 MG TAB PO SCH ×2 (10:53→18:43)
[2019-08-18] MEDS: ASPIRIN 81 MG ECTAB PO SCH (10:54)
--- NOTE | 2019-08-18 12:38 | Hospitalist Progress Note ---
Date of Service August 18, 2019 Assessment & Plan (1) Cellulitis of foot, right: Gangrenous right great toe (diabetic foot infection) - pt started on zosyn and daptomycin, will add clindamycin - orthopedics consulted, case discussed w/ Dr. Petersen, plan for R toe am putation later today - requests pre-op eval by cardiology given sign. cardiac hx DM2, insulin requiring, suboptimal control as of recent outpatient hemoglobin A1c of 8.17 April 2019 - current HbA1c 9.4% Basal insulin, ISS BG goal [id number] chronic anemia, hemoglobin slightly lower than baseline Anemia work-up, transfuse PRBC if hemoglobin less than 8 and or for symptomatic anemia (2) S/P ICD (internal cardiac defibrillator) procedure: (3) CHF (congestive heart failure): chronic systolic heart failure secondary ischemic cardiomyopathy (EF less than 20% TTE, 2016) status post ICD, CAD as per records Equivocal volume status Congestion on x-ray although patient seems intravascularly dry w/ ARF on CKD, hypercalcemia Hold losartan, spironolactone for now given borderline hyperkalemia 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 K for elevated INR and pt will then undergo surgery (R toe amputation) w// Erich later today Subjective Pt is lying in bed, in no acute distress. Currently denies any chest pain or shortness of breath. Says that prior to his toe becoming gangrenous, he was able to walk upstairs w/o any difficulty. Cr 1.47 INR 3.6 - discussed w/ orthopedics surgery and cardiology, will give IV vit. K and plan for amputation later today Review of Systems Review of Systems: All systems reviewed & are unremarkable except as noted in HPI & below Constitutional: + fever Musculoskeletal: + R gangrenous and tender toe Physical Exam Physical Exam: GENERAL: elderly male lying in bed in no acute distress HEENT: NC/AT, EOMI, PERRL NECK : Supple, no tenderness CHEST : Decreased breath sounds , no wheezing, rhonchi, crackles HEART : Diminished S1-S2, systolic murmur ABDOMEN: normal bowel sounds, soft, obese, some distention, nontender EXTREMITIES : Minimal LE swelling, no LE tenderness, right toe gangrene with tenderness SKIN: Pallor , warm NEUROLOGIC : alert and oriented x3,no facial asymmetry, speech fluent, moves extremities spontaneously Results & Data Vital Signs (Past 12 Hours) Vital Signs Temp Pulse Pulse Pulse Resp BP Pulse Ox 08/18/19 11:25 36.6 C 70 21 121/66 92 08/18/19 08:00 70 08/18/19 07:29 36.5 C 70 18 151/70 H 93 08/18/19 03:00 36.7 C 72 19 125/62 92 08/18/19 01:26 79 Laboratory Results 08/18/19 08/18/19 08/18/19 Range/Units 11:03 07:09 06:38 WBC (4.8-10.8) K/uL RBC (4.7-6.1) M/uL Hgb (14.0-18.0) g/dL Hct (42-52) % MCV (80-100) fL MCH (25-34) pg MCHC (32-36) g/dL RDW Std Deviation (36.4-46.3) fL RDW Coeff of Yenny (11.5-14.5) % Plt Count (130-400) K/uL MPV (7.4-10.4) fL Immature Gran % (Auto) % Neut % (Auto) % Lymph % (Auto) % Craven % (Auto) % Eos % (Auto) % Baso % (Auto) % Reticulocyte % (Auto) (0.5-2.0) % Immature Gran # (Auto) (0.00-0.02) K/uL Neut # (Auto) (1.4-6.5) K/uL Lymph # (Auto) (1.2-3.4) K/uL Craven # (Auto) (0.11-0.59) K/uL Eos # (Auto) (0-0.5) K/uL Baso # (Auto) (0-0.2) K/uL Reticulocyte # (0.02-0.10) 10^6/uL ESR (0-14) mm/hr PT (9.0-12.0) Seconds INR (0.9-1.1) APTT (21.0-31.0) Seconds PTT Ratio Sodium (136-145) mmol/L Potassium (3.5-5.1) mmol/L Chloride (98-107) mmol/L Carbon Dioxide (21-32) mmol/L Anion Gap (3-11) BUN (7-18) mg/dl Creatinine (0.6-1.4) mg/dl Est Cr Clr Drug Dosing ml/min Est GFR ( Amer) Est GFR (Non-Af Amer) BUN/Creatinine Ratio (10-20) Glucose (70-99) mg/dl POC Glucose 192 H 223 H (70-99) Estimat Average Glucose mg/dl Hemoglobin A1c (4.5-5.6) % Lactate (0.4-2.0) mmol/L Calcium (8.5-10.1) mg/dl Magnesium (1.8-2.4) mg/dl Iron (35-175) mcg/dl TIBC (250-450) mcg/dl Transferrin (200-360) mg/dl Ferritin (8-388) ng/ml Total Bilirubin (0.2-1) mg/dl AST (15-37) U/L ALT (12-78) U/L Alkaline Phosphatase (45-117) U/L C-Reactive Protein (0-0.29) mg/dl Total Protein (6.4-8.2) gm/dl Albumin (3.4-5.0) gm/dl Globulin (2.5-4.0) gm/dl Albumin/Globulin Ratio (0.9-2) Vitamin B12 (211-911) pg/ml Folate (>5.38) ng/ml TSH (0.300-4.500) uIu/ml Blood Type A Positive Antibody Screen NEGATIVE 08/18/19 08/18/19 08/18/19 Range/Units 06:38 06:38 06:38 WBC (4.8-10.8) K/uL RBC (4.7-6.1) M/uL Hgb (14.0-18.0) g/dL Hct (42-52) % MCV (80-100) fL MCH (25-34) pg MCHC (32-36) g/dL RDW Std Deviation (36.4-46.3) fL RDW Coeff of Yenny (11.5-14.5) % Plt Count (130-400) K/uL MPV (7.4-10.4) fL Immature Gran % (Auto) % Neut % (Auto) % Lymph % (Auto) % Craven % (Auto) % Eos % (Auto) % Baso % (Auto) % Reticulocyte % (Auto) (0.5-2.0) % Immature Gran # (Auto) (0.00-0.02) K/uL Neut # (Auto) (1.4-6.5) K/uL Lymph # (Auto) (1.2-3.4) K/uL Craven # (Auto) (0.11-0.59) K/uL Eos # (Auto) (0-0.5) K/uL Baso # (Auto) (0-0.2) K/uL Reticulocyte # (0.02-0.10) 10^6/uL ESR (0-14) mm/hr PT 34.0 H (9.0-12.0) Seconds INR 3.6 H (0.9-1.1) APTT (21.0-31.0) Seconds PTT Ratio Sodium 137 (136-145) mmol/L Potassium 4.1 D (3.5-5.1) mmol/L Chloride 104 (98-107) mmol/L Carbon Dioxide 30 (21-32) mmol/L Anion Gap 3.0 (3-11) BUN 44 H (7-18) mg/dl Creatinine 1.47 H (0.6-1.4) mg/dl Est Cr Clr Drug Dosing 47.7 ml/min Est GFR ( Amer) 54.1 Est GFR (Non-Af Amer) 46.7 BUN/Creatinine Ratio 29.9 H (10-20) Glucose 211 H (70-99) mg/dl POC Glucose (70-99) Estimat Average Glucose mg/dl Hemoglobin A1c (4.5-5.6) % Lactate (0.4-2.0) mmol/L Calcium 9.9 (8.5-10.1) mg/dl Magnesium (1.8-2.4) mg/dl Iron 29 L (35-175) mcg/dl TIBC 167 L (250-450) mcg/dl Transferrin 127 L (200-360) mg/dl Ferritin 991.9 H (8-388) ng/ml Total Bilirubin (0.2-1) mg/dl AST (15-37) U/L ALT (12-78) U/L Alkaline Phosphatase (45-117) U/L C-Reactive Protein (0-0.29) mg/dl Total Protein (6.4-8.2) gm/dl Albumin (3.4-5.0) gm/dl Globulin (2.5-4.0) gm/dl Albumin/Globulin Ratio (0.9-2) Vitamin B12 521 (211-911) pg/ml Folate 11.88 (>5.38) ng/ml TSH (0.300-4.500) uIu/ml Blood Type Antibody Screen 08/18/19 08/18/19 08/17/19 Range/Units 06:38 01:00 23:08 WBC 6.35 (4.8-10.8) K/uL RBC 3.84 L (4.7-6.1) M/uL Hgb 10.9 L (14.0-18.0) g/dL Hct 33.7 L (42-52) % MCV 87.8 (80-100) fL MCH 28.4 (25-34) pg MCHC 32.3 (32-36) g/dL RDW Std Deviation 42.4 (36.4-46.3) fL RDW Coeff of Yenny 13.2 (11.5-14.5) % Plt Count 147 (130-400) K/uL MPV 10.1 (7.4-10.4) fL Immature Gran % (Auto) 0.2 % Neut % (Auto) 71.8 % Lymph % (Auto) 9.0 % Craven % (Auto) 15.9 % Eos % (Auto) 2.8 % Baso % (Auto) 0.3 % Reticulocyte % (Auto) 1.2 (0.5-2.0) % Immature Gran # (Auto) 0.01 (0.00-0.02) K/uL Neut # (Auto) 4.56 (1.4-6.5) K/uL Lymph # (Auto) 0.57 L (1.2-3.4) K/uL Craven # (Auto) 1.01 H (0.11-0.59) K/uL Eos # (Auto) 0.18 (0-0.5) K/uL Baso # (Auto) 0.02 (0-0.2) K/uL Reticulocyte # 0.05 (0.02-0.10) 10^6/uL ESR (0-14) mm/hr PT (9.0-12.0) Seconds INR (0.9-1.1) APTT (21.0-31.0) Seconds PTT Ratio Sodium (136-145) mmol/L Potassium (3.5-5.1) mmol/L Chloride (98-107) mmol/L Carbon Dioxide (21-32) mmol/L Anion Gap (3-11) BUN (7-18) mg/dl Creatinine (0.6-1.4) mg/dl Est Cr Clr Drug Dosing ml/min Est GFR ( Amer) Est GFR (Non-Af Amer) BUN/Creatinine Ratio (10-20) Glucose (70-99) mg/dl POC Glucose 249 H 222 H (70-99) Estimat Average Glucose mg/dl Hemoglobin A1c (4.5-5.6) % Lactate (0.4-2.0) mmol/L Calcium (8.5-10.1) mg/dl Magnesium (1.8-2.4) mg/dl Iron (35-175) mcg/dl TIBC (250-450) mcg/dl Transferrin (200-360) mg/dl Ferritin (8-388) ng/ml Total Bilirubin (0.2-1) mg/dl AST (15-37) U/L ALT (12-78) U/L Alkaline Phosphatase (45-117) U/L C-Reactive Protein (0-0.29) mg/dl Total Protein (6.4-8.2) gm/dl Albumin (3.4-5.0) gm/dl Globulin (2.5-4.0) gm/dl Albumin/Globulin Ratio (0.9-2) Vitamin B12 (211-911) pg/ml Folate (>5.38) ng/ml TSH (0.300-4.500) uIu/ml Blood Type Antibody Screen 08/17/19 08/17/19 08/17/19 Range/Units 19:00 19:00 19:00 WBC (4.8-10.8) K/uL RBC (4.7-6.1) M/uL Hgb (14.0-18.0) g/dL Hct (42-52) % MCV (80-100) fL MCH (25-34) pg MCHC (32-36) g/dL RDW Std Deviation (36.4-46.3) fL RDW Coeff of Yenny (11.5-14.5) % Plt Count (130-400) K/uL MPV (7.4-10.4) fL Immature Gran % (Auto) % Neut % (Auto) % Lymph % (Auto) % Craven % (Auto) % Eos % (Auto) % Baso % (Auto) % Reticulocyte % (Auto) (0.5-2.0) % Immature Gran # (Auto) (0.00-0.02) K/uL Neut # (Auto) (1.4-6.5) K/uL Lymph # (Auto) (1.2-3.4) K/uL Craven # (Auto) (0.11-0.59) K/uL Eos # (Auto) (0-0.5) K/uL Baso # (Auto) (0-0.2) K/uL Reticulocyte # (0.02-0.10) 10^6/uL ESR (0-14) mm/hr PT (9.0-12.0) Seconds INR (0.9-1.1) APTT (21.0-31.0) Seconds PTT Ratio Sodium 132 L (136-145) mmol/L Potassium 5.1 (3.5-5.1) mmol/L Chloride 100 (98-107) mmol/L Carbon Dioxide 28 (21-32) mmol/L Anion Gap 4.0 (3-11) BUN 43 H (7-18) mg/dl Creatinine 1.58 H (0.6-1.4) mg/dl Est Cr Clr Drug Dosing 47.3 ml/min Est GFR ( Amer) 49.2 Est GFR (Non-Af Amer) 42.5 BUN/Creatinine Ratio 27.2 H (10-20) Glucose 247 H (70-99) mg/dl POC Glucose (70-99) Estimat Average Glucose 223 mg/dl Hemoglobin A1c 9.4 H (4.5-5.6) % Lactate 1.1 (0.4-2.0) mmol/L Calcium 10.5 H (8.5-10.1) mg/dl Magnesium 2.1 (1.8-2.4) mg/dl Iron (35-175) mcg/dl TIBC (250-450) mcg/dl Transferrin (200-360) mg/dl Ferritin (8-388) ng/ml Total Bilirubin 0.8 (0.2-1) mg/dl AST 10 L (15-37) U/L ALT 17 (12-78) U/L Alkaline Phosphatase 105 (45-117) U/L C-Reactive Protein 11.50 H (0-0.29) mg/dl Total Protein 7.9 (6.4-8.2) gm/dl Albumin 3.3 L (3.4-5.0) gm/dl Globulin 4.6 H (2.5-4.0) gm/dl Albumin/Globulin Ratio 0.7 L (0.9-2) Vitamin B12 (211-911) pg/ml Folate (>5.38) ng/ml TSH 0.515 (0.300-4.500) uIu/ml Blood Type Antibody Screen 08/17/19 08/17/19 08/17/19 Range/Units 19:00 19:00 19:00 WBC 9.62 (4.8-10.8) K/uL RBC 4.20 L (4.7-6.1) M/uL Hgb 12.2 L (14.0-18.0) g/dL Hct 36.3 L (42-52) % MCV 86.4 (80-100) fL MCH 29.0 (25-34) pg MCHC 33.6 (32-36) g/dL RDW Std Deviation 42.0 (36.4-46.3) fL RDW Coeff of Yenny 13.3 (11.5-14.5) % Plt Count 168 (130-400) K/uL MPV 10.2 (7.4-10.4) fL Immature Gran % (Auto) 0.1 % Neut % (Auto) 83.7 % Lymph % (Auto) 9.6 % Craven % (Auto) 5.6 % Eos % (Auto) 0.8 % Baso % (Auto) 0.2 % Reticulocyte % (Auto) (0.5-2.0) % Immature Gran # (Auto) 0.01 (0.00-0.02) K/uL Neut # (Auto) 8.05 H (1.4-6.5) K/uL Lymph # (Auto) 0.92 L (1.2-3.4) K/uL Craven # (Auto) 0.54 (0.11-0.59) K/uL Eos # (Auto) 0.08 (0-0.5) K/uL Baso # (Auto) 0.02 (0-0.2) K/uL Reticulocyte # (0.02-0.10) 10^6/uL ESR 85 H (0-14) mm/hr PT 29.0 H (9.0-12.0) Seconds INR 3.1 H (0.9-1.1) APTT 44.5 H (21.0-31.0) Seconds PTT Ratio 1.6 Sodium (136-145) mmol/L Potassium (3.5-5.1) mmol/L Chloride (98-107) mmol/L Carbon Dioxide (21-32) mmol/L Anion Gap (3-11) BUN (7-18) mg/dl Creatinine (0.6-1.4) mg/dl Est Cr Clr Drug Dosing ml/min Est GFR ( Amer) Est GFR (Non-Af Amer) BUN/Creatinine Ratio (10-20) Glucose (70-99) mg/dl POC Glucose (70-99) Estimat Average Glucose mg/dl Hemoglobin A1c (4.5-5.6) % Lactate (0.4-2.0) mmol/L Calcium (8.5-10.1) mg/dl Magnesium (1.8-2.4) mg/dl Iron (35-175) mcg/dl TIBC (250-450) mcg/dl Transferrin (200-360) mg/dl Ferritin (8-388) ng/ml Total Bilirubin (0.2-1) mg/dl AST (15-37) U/L ALT (12-78) U/L Alkaline Phosphatase (45-117) U/L C-Reactive Protein (0-0.29) mg/dl Total Protein (6.4-8.2) gm/dl Albumin (3.4-5.0) gm/dl Globulin (2.5-4.0) gm/dl Albumin/Globulin Ratio (0.9-2) Vitamin B12 (211-911) pg/ml Folate (>5.38) ng/ml TSH (0.300-4.500) uIu/ml Blood Type Antibody Screen Medications Administered Current Inpatient Medications Acetaminophen (Tylenol) 650 mg PO Q4H PRN PRN Reason: Pain or Fever Stop: 09/17/19 00:07 Last Admin: 08/18/19 01:02 Dose: 650 mg Documented by: Aspirin (Ecotrin Ectab) 81 mg PO DAILY [facility] Stop: 09/17/19 08:59 Last Admin: 08/18/19 10:54 Dose: Not Given Documented by: Carvedilol (Coreg) 3.125 mg PO BIDM [facility] Stop: 09/17/19 07:59 Last Admin: 08/18/19 10:53 Dose: Not Given Documented by: Dextrose (Dextrose 50%) 25 - 50 ml IV UD PRN; Protocol PRN Reason: Hypoglycemia Protocol Stop: 09/17/19 00:07 Glucagon (Glucagen) 1 mg SQ UD PRN; Protocol PRN Reason: Hypoglycemia Protocol Stop: 09/17/19 00:07 Glucose (Dex4 Glucose) 4 - 8 tabs PO UD PRN; Protocol PRN Reason: Hypoglycemia Protocol Stop: 09/17/19 00:07 Glucose (Glucose 40%) 15 - 30 gm PO UD PRN; Protocol PRN Reason: Hypoglycemia Protocol Stop: 09/17/19 00:07 Hydromorphone HCl (Dilaudid) 0.25 mg IV Q3H PRN PRN Reason: Pain Stop: 09/01/19 00:07 Last Admin: 08/18/19 08:20 Dose: 0.25 mg Documented by: Promethazine HCl 12.5 mg/ (Sodium Chloride) 50.5 mls @ 202 mls/hr IV Q6H PRN PRN Reason: Nausea And Vomiting Stop: 09/17/19 00:07 Piperacillin Sod/Tazobactam (Sod 3.375 gm/ Dextrose) 115 mls @ 28.75 mls/hr IV Q8H ESTEFANIA; Protocol Stop: 08/28/19 00:59 Last Admin: 08/18/19 09:27 Dose: 28.8 mls/hr Documented by: Daptomycin 300 mg/ Syringe 6 mls @ 0 mls/min IV Q24H ESTEFANIA; Protocol Stop: 08/28/19 01:59 Last Admin: 08/18/19 02:29 Dose: 3 mls/min Documented by: Clindamycin Phosphate 900 mg/ (Dextrose) 56 mls @ 112 mls/hr IV Q8H ESTEFANIA; Protocol Stop: 08/20/19 08:59 Last Infusion: 08/18/19 10:00 Dose: Infused Documented by: Insulin Aspart (Novolog Flexpen) 0 units SC ACHS ESTEFANIA Stop: 09/17/19 00:07 Last Admin: 08/18/19 12:07 Dose: 1 units Documented by: Insulin Glargine (Lantus Solostar Pen) 20 units SC HS EST[facility]ANIA Stop: 09/17/19 20:59 Miscellaneous (Carbohydrates For Hypoglycemia) 15 - 30 gm PO UD PRN PRN Reason: Hypoglycemia Protocol Stop: 09/17/19 00:07 Miscellaneous Information (Consult) 1 ea N/A UD PRN PRN Reason: Consult Stop: 09/16/19 19:07 Miscellaneous Information (Consult) 1 ea N/A UD PRN PRN Reason: Consult Stop: 09/17/19 00:20 Nitroglycerin (Nitrostat) 0.4 mg SL UD PRN PRN Reason: Chest Pain Stop: 09/17/19 00:07 Oxycodone HCl (Roxicodone Immediate Rel) 5 mg PO Q4H PRN PRN Reason: Pain Stop: 09/01/19 00:16
[2019-08-18] MEDS ORDERED: PHYTONADIONE 5 MG in SODIUM CHLORIDE 0.9% 50 ML IV STA (14:41)
--- NOTE | 2019-08-18 14:48 | Cardiology Consultation ---
Date of Consultation August 18, 2019 Assessment & Plan (1) Necrosis of toe: (2) CHF (congestive heart failure): (3) Preoperative cardiovascular examination: The patient's most recent outpatient cardiology visit had been in March 2019 and per the progress note stable cardiac signs and symptoms were described at that time. Patient describes stable respiratory status, no recent angina. Telemetry performed today did reveal a 5 beat run of nonsustained ventricular tachycardia observed at 7:52 AM without recurrence. His most recent EKG performed as an outpatient in 2018 revealed age undetermined inferior and anterolateral infarction pattern, repeat at this institution is currently pending. INR this morning was 3.6. Recommend proceeding with 5 mg of IV vitamin K as soon as possible for reversal of his INR. I have ordered a preoperative EKG which will be compared to his prior, that he has had an echocardiogram which we reviewed in comparison to his prior At this time he does describe stable cardiac signs and symptoms. I discussed with the patient that given his complex cardiac history he is estimated to be a moderately increased risk of perioperative cardiac complication including myocardial infarction, worsening congestive heart failure, or arrhythmia. He does however appear to be quite optimized, and has done well in the last 7 years since his aneurysm resection. It does appear that he has not responded to conservative therapy, and that surgical intervention for his great toe infection is necessary, I have concerns for osteomyelitis, and he could of course see to his defibrillator leading to life-threatening heart related infection, and therefore I think the therapeutic benefits of surgical intervention for his toe wound exceed the risks. Further recommendations be forthcoming after the EKG and echocardiogram are reviewed. History of Present Illness Attending Physician: Bandar Zamora MD History of Present Illness Miguel Ángel Zhao is a 73 year old male seen in cardiology consultation per the request of Dr Sanderson for preoperative cardiac risk stratification prior to surgical intervention for a gangrenous right great toe. The patient presented overnight with progressive necrotic tissue of his right great toe, as well as erythema over the distal portion of his foot. He states he has been receiving treatment for the toe wound since before the , and it has not responded to nonoperative measures including antibiotics. Patient follows with [facility] cardiology outreach provider from [facility] [place] the [place]. The patient has a history of chronic coronary heart disease with remote LAD territory infarction with resultant apical and apical inferior aneurysm for which he underwent surgical resection of left ventricular aneurysm on 06/19/2012 at [facility] [place]. He subsequently underwent a single-chamber [employer] AICD on 06/26/2012 for primary prevention of sudden cardiac given severe ischemic cardiomyopathy. His ejection fraction at the time of that procedure was in the range of 20%. His most recent echocardiogram prior to today had been in 2016, with findings of severe left ventricular systolic dysfunction, LVEF of less than 20%, with mild mitral regurgitation. The patient the patient describes no change in his recent cardiac status, no increase shortness of breath, chest pain, no lightheadedness or dizziness. 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 for which he underwent surgical resection in 2011, followed by single-chamber AICD Chronic systolic heart failure, LVEF in the range of 20% Type 2 diabetes mellitus Social history: Patient lives with the spouse who accompanies him at the bedside Allergies Allergy/AdvReac Type Severity Reaction Status Date / Time No Known Allergies Allergy Unverified 08/17/19 21:21 Home Medications Home Medications Medication Instructions Recorded Confirmed Type aspirin [Aspirin Low Dose] 81 mg PO DAILY 08/17/19 08/17/19 History atorvastatin 80 mg PO DAILY 08/17/19 08/17/19 History carvedilol 3.125 mg PO BIDM 08/17/19 08/17/19 History cephalexin 500 mg PO Q8H 08/17/19 08/17/19 History furosemide 40 mg PO DAILY PRN 08/17/19 08/17/19 History insulin glargine [Lantus Solostar 40 unit SUBCUT HS 08/17/19 08/17/19 History U-100 Insulin] losartan 25 mg PO DAILY 08/17/19 08/17/19 History oxycodone 5 mg PO Q6H PRN 08/17/19 08/17/19 History spironolactone 25 mg PO DAILY 08/17/19 08/17/19 History warfarin 10 mg PO DAILY 08/17/19 08/17/19 History Patient History Medical History Diabetes Surgical History History of open heart surgery Social History Preferred Language: Burkinan Communication Ability: Effective Beliefs That Will Affect Care: None Current Living Situation: Spouse Other Information That Helps Us Care for You: No Feels Safe at Home: Yes Safety Concerns: Feels Safe At This Time Smoking Status: Former smoker Hx Alcohol Use: No Hx Substance Use: No Review of Systems Review of Systems: All systems reviewed & are unremarkable except as noted in HPI & below Physical Exam Physical Exam: Temp Pulse Resp BP Pulse Ox 36.6 C 70 21 121/66 92 08/18/19 11:25 08/18/19 11:25 08/18/19 11:25 08/18/19 11:25 08/18/19 11:25 Constitutional: WD/WN, vitals as above Respiratory: normal respiratory effort, lungs clear to auscultation Cardiovascular: RRR, no murmur, no edema Chest (Breasts): Additional Comments: Left infraclavicular device pocket is clean dry and intact no erythema, Gastrointestinal (Abdomen): normal bowel sounds, soft, nontender, no hepatosplenomegaly Musculoskeletal: Right great toe, with necrotic black tissue, erythema of the dorsum of the foot Neurologic: PERRL, EOMI, accommodation nl, no face palsy, no dysarthria Results & Data Vital Signs (Past 12 Hours) Vital Signs Temp Pulse Pulse Pulse Resp BP Pulse Ox 08/18/19 11:25 36.6 C 70 21 121/66 92 08/18/19 08:00 70 08/18/19 07:29 36.5 C 70 18 151/70 H 93 08/18/19 03:00 36.7 C 72 19 125/62 92 Laboratory Results Cardiac Enzymes 08/17/19 Range/Units 19:00 AST 10 L (15-37) U/L Coagulation 08/17/19 08/18/19 Range/Units 19:00 06:38 PT 29.0 H 34.0 H (9.0-12.0) Seconds APTT 44.5 H (21.0-31.0) Seconds CBC 08/17/19 08/18/19 Range/Units 19:00 06:38 WBC 9.62 6.35 (4.8-10.8) K/uL RBC 4.20 L 3.84 L (4.7-6.1) M/uL Hgb 12.2 L 10.9 L (14.0-18.0) g/dL Hct 36.3 L 33.7 L (42-52) % Plt Count 168 147 (130-400) K/uL Neut # (Auto) 8.05 H 4.56 (1.4-6.5) K/uL Lymph # (Auto) 0.92 L 0.57 L (1.2-3.4) K/uL [place] # (Auto) 0.54 1.01 H (0.11-0.59) K/uL Eos # (Auto) 0.08 0.18 (0-0.5) K/uL Baso # (Auto) 0.02 0.02 (0-0.2) K/uL Comprehensive Metabolic Panel 08/17/19 08/18/19 Range/Units 19:00 06:38 Sodium 132 L 137 (136-145) mmol/L Potassium 5.1 4.1 D (3.5-5.1) mmol/L Chloride 100 104 (98-107) mmol/L Carbon Dioxide 28 30 (21-32) mmol/L BUN 43 H 44 H (7-18) mg/dl Creatinine 1.58 H 1.47 H (0.6-1.4) mg/dl Glucose 247 H 211 H (70-99) mg/dl Calcium 10.5 H 9.9 (8.5-10.1) mg/dl AST 10 L (15-37) U/L ALT 17 (12-78) U/L Alkaline Phosphatase 105 (45-117) U/L Total Protein 7.9 (6.4-8.2) gm/dl Albumin 3.3 L (3.4-5.0) gm/dl Intake and Output 08/17/19 08/18/19 08/18/19 22:59 06:59 14:59 Intake Total 120 / 830 710 / 830 666 / 666 Balance 120 / 830 710 / 830 666 / 666 Intake: IV 120 / 830 710 / 830 171 / 171 Albumin 25% 50 ml @ 50 mls/hr 50 / 50 IV NOW STA Rx#:[id number] Cleocin 900 mg In D5w 50 ml @ 56 / 56 112 mls/hr IV Q8H ESTEFANIA Rx#: [id number] Zosyn 3.375 gm In D5 100 ml @ 115 / 115 115 / 115 28.75 mls/hr IV Q8H ESTEFANIA Rx#: [id number] ZOSYN 4.5 gm In 120 ml @ 240 120 / 120 mls/hr IV NOW ONE Rx#:[id number] Vancomycin HCl 2,250 mg In Nss 545 / 545 500 ml @ 200 mls/hr IV NOW ONE Rx#:[id number] Oral 495 / 495 Other: Other Intake Source sips # Unmeasured Voids 1 Weight 91 kg 86.6 kg 86.6 kg Patient Weight 08/19/19 06:59 Weight 86.6 kg
--- NOTE | 2019-08-18 16:02 | Anesthesiology Consultation ---
Date of Service August 18, 2019 Assessment & Plan (1) Encounter for pre-operative examination: Chart Review Chart Review: Acceptable Risk for Surgery and Patient NOT seen in Pre Admission Testing Cardiology consult 08/18/2019: EKG performed 08/18/2019 at 1453 revealed sinus rhythm at 72 bpm with first-degree AV block, age-indeterminate anterior infarct with poor R wave progression in leads V1 to V4, and diffuse deep T wave inversions in the anterior lateral preco rdial leads, age-indeterminate inferior infarction with inferior T wave inversions. Overall the tracing is unchanged compared to the prior performed as an outpatient on 08/13/2017. I had misunderstood previously, I had been under the impression that the patient had already had an echocardiogram performed this hospital stay. He has not had an echocardiogram. He has a longstanding history of severe LV systolic dysfunction, with previous resection of a large LV aneurysm. At this time, as noted, I feel that the patient is clinically optimized from a heart standpoint, with no unstable cardiac signs or symptoms, and surgical intervention is certainly warranted for his necrotic right toe. Patient is stable from my perspective to proceed to the operating room pending reversal of his INR to an acceptable level of less than 1.5. IV vitamin K has been administered, will need a repeat INR prior to surgery. Consults Requested none History Surgery Operation Date: 08/18/19 10:10 Proposed Procedures p Right Great Toe Amputation - Savage Petersen DO Height/Weight Height: 5 ft 11 in Weight: 86.6 kg Allergies Allergy/AdvReac Type Severity Reaction Status Date / Time No Known Allergies Allergy Unverified 08/17/19 21:21 Medications Home Medications Medication Instructions Recorded Confirmed Last Taken aspirin [Aspirin Low Dose] 81 mg PO DAILY 08/17/19 08/17/19 Unknown atorvastatin 80 mg PO DAILY 08/17/19 08/17/19 Unknown carvedilol 3.125 mg PO BIDM 08/17/19 08/17/19 Unknown cephalexin 500 mg PO Q8H 08/17/19 08/17/19 Unknown furosemide 40 mg PO DAILY PRN 08/17/19 08/17/19 Unknown insulin glargine [Lantus Solostar 40 unit SUBCUT HS 08/17/19 08/17/19 Unknown U-100 Insulin] losartan 25 mg PO DAILY 08/17/19 08/17/19 Unknown oxycodone 5 mg PO Q6H PRN 08/17/19 08/17/19 Unknown spironolactone 25 mg PO DAILY 08/17/19 08/17/19 Unknown warfarin 10 mg PO DAILY 08/17/19 08/17/19 Unknown Active Medications Generic Name Dose Route Start Last Admin Trade Name Freq PRN Reason Stop Dose Admin Acetaminophen 650 mg 08/18/19 00:08 08/18/19 01:02 Tylenol PO 09/17/19 00:07 650 mg Q4H PRN Administration Pain or Fever Aspirin 81 mg 08/18/19 09:00 08/18/19 10:54 Ecotrin Ectab PO 09/17/19 08:59 Not Given DAILY ESTEFANIA Carvedilol 3.125 mg 08/18/19 08:00 08/18/19 10:53 Coreg PO 09/17/19 07:59 Not Given BIDM ESTEFANIA Hydromorphone HCl 0.25 mg 08/18/19 00:08 08/18/19 08:20 Dilaudid IV 09/01/19 00:07 0.25 mg Q3H PRN Administration Pain Piperacillin Sod/Tazobactam 115 mls @ 28.75 mls/hr 08/18/19 01:00 08/18/19 13:30 Sod 3.375 gm/ Dextrose IV 08/28/19 00:59 Infused Q8H ESTEFANIA Infusion Protocol Daptomycin 300 mg/ Syringe 6 mls @ 0 mls/min 08/18/19 02:00 08/18/19 02:29 IV 08/28/19 01:59 3 mls/min Q24H ESTEFANIA Administration Protocol Clindamycin Phosphate 900 mg/ 56 mls @ 112 mls/hr 08/18/19 09:00 08/18/19 10:00 Dextrose IV 08/20/19 08:59 Infused Q8H ESTEFANIA Infusion Protocol Insulin Aspart 0 units 08/18/19 00:08 08/18/19 12:07 Novolog Flexpen SC 09/17/19 00:07 1 units ACHS ESTEFANIA Administration NPO Date Last Intake of Fluids: 08/18/19 Time Last Intake of Fluids: 01:00 Date Last Intake of Solids: 08/18/19 Time Last Intake of Solids: 01:00 Past Medical History Medical History (Updated 08/18/19 @ 16:05 by Obinna Rasmussen MD) Anemia Aortic stenosis CAD (coronary artery disease) CHF (congestive heart failure) Diabetes Ischemic cardiomyopathy Left ventricular aneurysm Necrosis of toe (Acute) Renal failure (ARF), acute on chronic Patient follows [facility] cardiology outreach [place] [facility] [place] The patient has a history of chronic coronary heart disease with remote LAD territory infarction with resultant apical and apical inferior aneurysm for which he underwent surgical [place] of [place] ventricular [place] [facility] [place] He subsequently underwent a single-chamber [employer] AICD on 06/26/2012 for primary prevention of sudden cardiac given severe ischemic cardiomyopathy. His ejection fraction at the time of that procedure was in the range of 20%. His most recent echocardiogram prior to today had been in 2016, with findings of severe left ventricular systolic dysfunction, LVEF of less than 20%, with mild mitral regurgitation. Exercise / Class Metabolic Activity III < 4 Walking/Shop/Light housework Past Surgical History Surgical History History of open heart surgery History of open heart surgery S/P ICD (internal cardiac defibrillator) procedure Past Anesthesia History No Hx of Anesthesia Complications and No Family Hx of Anesthesia Complications History of PONV No Hx of PONV and No Hx of Motion Sickness Social History Smoking Status: Former smoker Do You Dip or Chew Tobacco: No Hx Alcohol Use: No Hx Substance Use: No Physical Exam Vital Signs Last Vital Signs Temp 36.6 C 08/18/19 11:25 Pulse 70 08/18/19 11:25 Resp 21 08/18/19 11:25 BP 121/66 08/18/19 11:25 Pulse Ox 92 08/18/19 11:25 Testing Laboratory Results 08/18/19 06:38 08/18/19 06:38 PT 34.0 Seconds (9.0-12.0) H 08/18/19 06:38 INR 3.6 (0.9-1.1) H 08/18/19 06:38 APTT 44.5 Seconds (21.0-31.0) H 08/17/19 19:00 Hemoglobin A1c 9.4 % (4.5-5.6) H 08/17/19 19:00 Blood Type A Positive 08/18/19 06:38 Antibody Screen NEGATIVE 08/18/19 06:38 08/18/19 08/18/19 11:03 07:09 POC Glucose 192 H 223 H Electrocardiogram Date: 08/18/19 Findings: + NSR @ (72) Sinus rhythm with 1st degree A-V block Left axis deviation Inferior infarct , age undetermined Anterior infarct , age undetermined ST & Marked T wave abnormality, consider lateral ischemia Abnormal ECG No previous ECGs available
--- NOTE | 2019-08-18 16:18 | Electrocardiogram Report ---
Test Reason : Blood Pressure : / mmHG Vent. Rate : 072 BPM Atrial Rate : 072 BPM P-R Int : 220 ms QRS Dur : 102 ms QT Int : 394 ms P-R-T Axes : 067 -50 203 degrees QTc Int : 431 ms Sinus rhythm with 1st degree A-V block Left axis deviation Anterior infarct , age undetermined Abnormal ECG No previous ECGs available Confirmed by Bib Randhawa ([id number]) on 08/18/2019 4:18:31 PM Referred By: REFERRED SELF Confirmed By:Bib Randhawa
[2019-08-18 16:21] LABS: Prothrombin Time 33.4 Seconds (9.0-12.0)
[2019-08-18 16:22] LABS: INR 3.6 (0.9-1.1)
[2019-08-18] MEDS ORDERED: PROPOFOL IV EMULSION 10 MG/ML 20 ML VIAL IV ONE (16:23)
[2019-08-18] MEDS ORDERED: DEXAMETHASONE SOD INJ 4 MG/ML VIAL ONE (16:23)
[2019-08-18] MEDS ORDERED: LIDOCAINE HCL 2% 2 ML VIAL/AMP(20MG/ML) INFIL ONE (16:23)
[2019-08-18] MEDS ORDERED: ONDANSETRON INJ 2 MG/ML 2 ML VIAL ONE (16:23)
[2019-08-18] MEDS ORDERED: BUPIVACAINE 0.25% 30 ML VIAL ONE (16:24)
[2019-08-18] MEDS ORDERED: fentaNYL citrate 100 MCG/2 ML VIAL ONE ×2 (16:24→16:45)
[2019-08-18] MEDS ORDERED: MIDAZOLAM HCL 1 MG/ML 2ML VIAL ONE (16:24)
[2019-08-18] MEDS ORDERED: PHENYLEPHRINE HCL 10 MG/ML VIAL ONE (16:44)
[2019-08-18] MEDS ORDERED: ATROPINE SULFATE 0.1 MG/ML 10ML SYR IV PRN (16:46)
[2019-08-18] MEDS ORDERED: ePHEDrine sulfate 50 MG/ML AMP IV PRN (16:46)
[2019-08-18] MEDS ORDERED: HYDROmorphone INJ 1 MG/ML SYRINGE IV PRN (16:46)
[2019-08-18] MEDS ORDERED: ONDANSETRON INJ 2 MG/ML 2 ML VIAL IV PRN (16:46)
[2019-08-18] MEDS ORDERED: fentaNYL citrate 100 MCG/2 ML VIAL IV PRN (16:46)
--- NOTE | 2019-08-18 17:14 | Operative Report ---
PG Post Operative Report Pre & Post Diagnosis Operation Date: 08/18/19 10:10 Necrotic right great toe Necrotic right great toe I identified the patient and participated in the time-out.: Yes Procedure Operation Date: 08/18/19 10:10 Amputation of right great toe with MTP disarticulation Surgeon Savage Petersen DO [employer] Mathew Burrell PAC Estimated Blood Loss 5 Findings Consistent with Post-Op Diagnosis Specimens Right great toe Complications none Disposition Disposition: Recovery Room Indications Migeul Ángel is a pleasant 73-year-old male who is been dealing with a one-month history of worsening necrosis of his right great toe. He is been to multiple doctors. He since had been admitted to the hospital. Orthopedics was consulted. After discussions with him and his , we elected to proceed with an amputation of the right great toe. Description of Procedure On August 18, 2019 he was brought down from his hospital room to the preoperative holding area. The operative extremity was identified and signed. He was then taken back to the operating room and laid on the table in the supine position. He was put under general anesthesia. The right foot was prepped and draped in sterile fashion. A timeout was done. The patient and the operative extremity was properly identified. A fishmouth incision was made around the necrosis. A sharp knife was then used to go through the soft tissue right down to bone. A swab culture was obtained. The proximal phalanx was then disarticulated from the MTP joint. I had enough soft tissue to do a nice fishmouth closure. The soft tissue edges were freshened up. There was moderate bleeding. The wound was then irrigated with a liter of normal saline solution. The wound was then closed with 3-0 nylon suture in a vertical mattress fashion. Is able to get a nice closure without much tension. A soft dressing was placed. He was then extubated and transferred to a [facility]. He was taken to the postanesthesia care unit in stable condition. He tolerated the procedure well. I attest to the content of the Intraoperative Record and any orders documented therein. Any exceptions are noted below.
--- NOTE | 2019-08-18 17:57 | Anesthesiology Progress Note ---
Date of Service August 18, 2019 Anesthesia Post Procedure Vital Signs Vital Signs: Temp Pulse Pulse Pulse Pulse Resp BP 08/18/19 17:40 77 13 08/18/19 17:30 72 14 08/18/19 17:21 36.0 C L 72 14 08/18/19 16:22 36.7 C 83 18 08/18/19 16:16 36.7 C 82 14 08/18/19 11:25 36.6 C 70 21 08/18/19 08:00 70 08/18/19 07:29 36.5 C 70 18 08/18/19 03:00 36.7 C 72 19 08/18/19 01:26 79 08/17/19 23:45 36.6 C 77 18 08/17/19 23:37 81 20 133/60 08/17/19 22:25 80 21 08/17/19 21:09 85 20 08/17/19 19:09 75 20 BP Pulse Ox 08/18/19 17:40 129/74 100 08/18/19 17:30 136/69 100 08/18/19 17:21 126/75 99 08/18/19 16:22 158/71 H 90 08/18/19 16:16 140/73 95 08/18/19 11:25 121/66 92 08/18/19 08:00 08/18/19 07:29 151/70 H 93 08/18/19 03:00 125/62 92 08/18/19 01:26 08/17/19 23:45 159/70 H 96 08/17/19 23:37 99 08/17/19 22:25 136/67 94 08/17/19 21:09 133/56 L 97 08/17/19 19:09 120/62 98 Pain Intensity Right Foot: Pain Intensity: 0 Transfer of Care Handoff Completed per policy Notes Mental Status: alert / awake / arousable and participated in evaluation Patient Amnestic to Procedure: Yes Nausea / Vomiting: adequately controlled Pain: adequately controlled Airway Patency, RR, SpO2: stable & adequate BP & HR: stable & adequate Hydration State: stable & adequate Anesthetic Complications: no major complications apparent and Pt Satisfied with anesthetic care
[2019-08-18] MEDS ORDERED: NALOXONE HCL 0.4 MG/1 ML VIAL/CARP IV PRN (18:18)
[2019-08-18] MEDS: SODIUM CHLORIDE 0.9% 1000ML 1,000 ML IV SCH (18:45)
[2019-08-18] MEDS: OXYCODONE HCL IR 5 MG TAB (IMMEDIATE RELEASE) PO PRN (19:03)
[2019-08-18] MEDS: INSULIN GLARGINE SOLOSTAR 100 UNITS/ML 3 ML PEN SC SCH (20:00)
[2019-08-19] MEDS: CLINDAMYCIN 900 MG in DEXTROSE 5% 50 ML IV SCH ×3 (00:18→17:08)
[2019-08-19] MEDS: PIPERACILLIN/TAZOBACTAM 3.375 GM in DEXTROSE 5% 100 ML IV SCH ×3 (00:18→17:09)
[2019-08-19] MEDS: SODIUM CHLORIDE 0.9% 1000ML 1,000 ML IV SCH (00:25)
[2019-08-19] MEDS: ACETAMINOPHEN 325 MG TAB PO PRN (00:53)
[2019-08-19] MEDS: DAPTOmycin 300 MG in SYRINGE 0 ML IV SCH (00:54)
[2019-08-19] MEDS: HYDROmorphone INJ 0.5 MG/0.5 ML SYR IV PRN ×3 (05:58→19:46)
--- NOTE | 2019-08-19 06:57 | Orthopedic Progress Note ---
Date of Service August 19, 2019 Assessment & Plan (1) Amputation of right great toe: The surgery went well. I was able to preserve the distal metatarsal head which should improve his function. Unfortunately, there was not great blood flow to the area. There was some blood flow but it was minimal. I do want to give this a chance to heal. I do recommend a vascular consultation to see if they can improve blood flow to his right foot. He can be weightbearing as tolerated in a hard sole shoe. Present on Admission?: No Subjective Adina was seen and examined at bedside this morning. Overall he is doing well. He is not having much pain in the foot. He is happy with his progress. He has no complaints. Physical Exam Musculoskeletal: Physical examination of the right foot, the dressing is clean and dry. He can move his lesser toes. Results & Data Vital Signs (Past 12 Hours) Vital Signs Temp Pulse Pulse Resp BP Pulse Ox 08/19/19 03:35 37.3 C 68 18 119/67 08/19/19 01:13 73 08/19/19 00:00 36.9 C 77 18 139/73 94 08/18/19 21:00 37.1 C 73 112/62 08/18/19 19:45 84 141/72 H 08/18/19 19:15 84 141/72 H PG Care Time/CCT Total # of Minutes Spent Total Time Spent with Patient: Total time spent is greater than 50% in coordination of care (as documented) at patient's floor/unit and/or counseling patient:
[2019-08-19 07:16] LABS: Hematocrit (blood only) 35.9 % (42-52); Hemoglobin 11.6 g/dL (14.0-18.0); Mean Corpuscular Hemoglobin 28.9 pg (25-34); Mean Corpuscular Hgb Conc 32.3 g/dL (32-36); Mean Corpuscular Volume 89.5 fL (80-100); Mean Platelet Volume 10.1 fL (7.4-10.4); Platelet Count 179 K/uL (130-400); RDW Coefficient of Variation 13.1 % (11.5-14.5); RDW Standard Deviation 43.2 fL (36.4-46.3); Red Blood Count 4.01 M/uL (4.7-6.1); White Blood Count 9.83 K/uL (4.8-10.8)
[2019-08-19] MEDS ORDERED: PERFLUTREN LIPID MICROSPHERE (DEFINITY) IV ONE (07:33)
[2019-08-19 07:43] LABS: BUN Creatinine Ratio 22.4 (10-20); Calcium 10.1 mg/dl (8.5-10.1); Creatinine Clr Calc Pharmacy 45.8 ml/min; Est GFR (African American) 51.5; Est GFR (Non-African American) 44.5; Magnesium 2.1 mg/dl (1.8-2.4); Potassium 4.3 mmol/L (3.5-5.1)
[2019-08-19] MEDS: OXYCODONE HCL IR 5 MG TAB (IMMEDIATE RELEASE) PO PRN ×2 (07:59→12:59)
[2019-08-19] MEDS: ASPIRIN 81 MG ECTAB PO SCH (08:00)
[2019-08-19] MEDS: MULTIVITAMIN TAB PO SCH (08:01)
[2019-08-19] MEDS: carvediloL 3.125 MG TAB PO SCH ×2 (09:29→17:42)
[2019-08-19] MEDS: INSULIN ASPART 100 UNITS/ML 3 ML PEN SC SCH ×4 (09:29→21:10)
--- NOTE | 2019-08-19 14:00 | Cardiology Progress Note ---
Date of Service August 19, 2019 Assessment & Plan (1) Ischemic cardiomyopathy: (2) Amputation of right great toe: (3) S/P ICD (internal cardiac defibrillator) procedure: Patient tolerated surgery well. Volume status stable. I have ordered a repeat INR, as I anticipate will need to reload his coumadin. Echo reveals stable findings. I am concerned about pt having PAD, based on the arterial duplex. I reviewed pt's [facility] chart, he saw Dr Stein of [facility] in 2013, and invasive angiogram was planned, however, from what I am able to determine, the patient cancelled the procedure, did not reschedule and did not follow up after. Subjective Pt feeling well. He is eager for discharge. Note mild post operative foot pain. Telemetry reveals SR with PACs in the 80-85 bpm range. Review of Systems Review of Systems: All systems reviewed & are unremarkable except as noted in HPI & below Physical Exam Physical Exam: Temp Pulse Resp BP Pulse Ox 37.7 C H 83 19 107/55 L 91 08/19/19 11:59 08/19/19 11:59 08/19/19 11:59 08/19/19 11:59 08/19/19 11:59 Constitutional: WD/WN, vitals as above Respiratory: normal respiratory effort, lungs clear to auscultation Cardiovascular: RRR, no murmur, no edema Gastrointestinal (Abdomen): normal bowel sounds, soft, nontender, no hepatosplenomegaly Neurologic: PERRL, EOMI, accommodation nl, no face palsy, no dysarthria Results & Data Vital Signs (Past 12 Hours) Vital Signs Temp Pulse Pulse Resp BP BP Pulse Ox 08/19/19 11:59 37.7 C H 83 19 107/55 L 91 08/19/19 08:23 37.1 C 78 20 133/55 L 93 08/19/19 03:35 37.3 C 68 18 119/67 Diagnostic Findings TTecho peformed today 08/19/19: technically limited study, changes consistent with h/o LV aneurysm resection, other segments contract well. LVEF ~40%
[2019-08-19 14:27] LABS: INR 1.3 (0.9-1.1); Prothrombin Time 12.8 Seconds (9.0-12.0)
[2019-08-19] MEDS ORDERED: WARFARIN SOD 7.5 MG TAB PO ONE (17:00)
--- NOTE | 2019-08-19 17:12 | Communication Note ---
Date of Service: August 19, 2019 RLE extremity duplex images reviewed with Dr Ken of interventional cardiology / endovascular medicine. Diffuse disease noted. Will proceed with duplex of aorta and iliacs to assess for more proximal disease. Coumadin DC'd. Start heparin bridge. I discussed need for further vascular work up with pt, spouse, and son at bedside.
[2019-08-19] MEDS ORDERED: Heparin IV Standard *NO* Bolus IV SCH (17:20)
[2019-08-19 18:26] LABS: Partial Thromboplastin Ratio 1.2; Partial Thromboplastin Time 33.2 Seconds (21.0-31.0)
[2019-08-19] MEDS: HEPARIN SODIUM/DEXTROSE 25,000 UNITS/500 ML BAG IV SCH (18:36)
[2019-08-19] MEDS: INSULIN GLARGINE SOLOSTAR 100 UNITS/ML 3 ML PEN SC SCH (21:10)
[2019-08-20] MEDS: PIPERACILLIN/TAZOBACTAM 3.375 GM in DEXTROSE 5% 100 ML IV SCH ×4 (01:04→23:54)
[2019-08-20] MEDS: DAPTOmycin 300 MG in SYRINGE 0 ML IV SCH (01:04)
[2019-08-20] MEDS: CLINDAMYCIN 900 MG in DEXTROSE 5% 50 ML IV SCH (01:04)
[2019-08-20 01:11] LABS: Partial Thromboplastin Ratio 1.9
[2019-08-20 01:12] LABS: Partial Thromboplastin Time 50.7 Seconds (21.0-31.0)
[2019-08-20] MEDS: HYDROmorphone INJ 0.5 MG/0.5 ML SYR IV PRN ×2 (01:33→07:24)
[2019-08-20] MEDS: ASPIRIN 81 MG ECTAB PO SCH (07:29)
[2019-08-20] MEDS: carvediloL 3.125 MG TAB PO SCH ×2 (07:29→17:41)
[2019-08-20] MEDS: MULTIVITAMIN TAB PO SCH (07:30)
[2019-08-20 07:34] LABS: Hematocrit (blood only) 32.7 % (42-52); Hemoglobin 10.9 g/dL (14.0-18.0); Mean Corpuscular Hemoglobin 28.8 pg (25-34); Mean Corpuscular Hgb Conc 33.3 g/dL (32-36); Mean Corpuscular Volume 86.3 fL (80-100); Mean Platelet Volume 10.5 fL (7.4-10.4); Platelet Count 175 K/uL (130-400); RDW Coefficient of Variation 13.1 % (11.5-14.5); RDW Standard Deviation 41.4 fL (36.4-46.3); Red Blood Count 3.79 M/uL (4.7-6.1); White Blood Count 8.07 K/uL (4.8-10.8)
[2019-08-20 07:54] LABS: Partial Thromboplastin Ratio 2.1; Partial Thromboplastin Time 57.2 Seconds (21.0-31.0)
[2019-08-20 08:11] LABS: BUN Creatinine Ratio 20.7 (10-20); Calcium 9.5 mg/dl (8.5-10.1); Creatinine Clr Calc Pharmacy 56.1 ml/min; Est GFR (African American) 65.8; Est GFR (Non-African American) 56.8
[2019-08-20] MEDS: INSULIN ASPART 100 UNITS/ML 3 ML PEN SC SCH ×4 (08:30→21:32)
--- NOTE | 2019-08-20 08:43 | Ultrasound Report ---
US aorta duplex CLINICAL HISTORY: Peripheral artery disease. Right great toe gangrene. COMPARISON STUDY: No previous studies for comparison. FINDINGS: There is no evidence of abdominal aortic aneurysm. There is no evidence of iliac artery ane urysm. The peak systolic velocity within the aorta was 84 cm/s. Peak systolic velocity within the rig ht common iliac artery was 115 cm/s. The peak systolic velocity left common iliac artery was 92 cm/s. There is scattered atheromatous plaque. There is no ultrasonographic evidence of hemodynamically sig nificant stenosis. IMPRESSION: 1. No evidence of abdominal aortic aneurysm 2. No ultrasonographic evidence of hemodynamic significant aortic or common iliac artery stenosis ACT 112: Negative or not required by law. Electronically signed by: Javier Mayo M.D. 08/20/2019 8:41 AM
--- NOTE | 2019-08-20 09:07 | Hospitalist Progress Note ---
Date of Service August 19, 2019 (late entry) Assessment & Plan (1) Amputation of right great toe: (2) PAD (peripheral artery disease): (3) Cellulitis of foot, right: Gangrenous right great toe (diabetic foot infection) s/p R toe amputation - presented with gangrenous necrotic rt great toe /diabetic toe infection - pt started on zosyn and daptomycin, added clindamycin - orthopedics consulted, case discussed w/ Dr. Petersen,now pt is s/p R toe amputation (08/18/2019) Update: - wound cltx : + for MRSA PAD - underlying severe peripheral vascular disease - plan to consult interventional cardiology, Dr. Ken DM2, insulin requiring, suboptimal control as of recent outpatient hemoglobin A1c of 8.17 April 2019 - current HbA1c 9.4% Basal insulin, ISS BG goal [id number] chronic anemia, hemoglobin slightly lower than baseline Anemia work-up, transfuse PRBC if hemoglobin less than 8 and or for symptomatic anemia (4) S/P ICD (internal cardiac defibrillator) procedure: pt has AICD , would treat with IV Abx for 2-3 weeks to prevent bacterial seeding to AICD wiring complains of pain around rt foot area , increased erythema and swelling noted cont to monitor, will discuss w/ ID (5) CHF (congestive heart failure): chronic systolic heart failure secondary ischemic cardiomyopathy (EF less than 20% TTE, 2016) status post ICD, CAD as per records Equivocal volume status Congestion on x-ray although patient seems intravascularly dry w/ ARF on CKD, hypercalcemia Hold losartan, spironolactone for now given borderline hyperkalemia LV aneurysm status post surgery on Coumadin, INR valvular heart disease (mild MR/ as per records) CAD/PVD as per records Cardiology consulted, appreciate their input Subjective Pt is lying in bed, in no acute distress. S/p R toe amputation, tolerated procedure well. Currently denies any fever, chills, chest pain or shortness of breath, abd. pain, nausea or vomiting. Review of Systems Review of Systems: All systems reviewed & are unremarkable except as noted in HPI & below Constitutional: no fever and no chills Respiratory: no cough and no chest congestion Cardiovascular: no chest pain, no palpitations and no edema Gastrointestinal: no abdominal pain, no nausea and no vomiting Musculoskeletal: S/p R toe amputation Physical Exam Physical Exam: GENERAL: elderly male lying in bed in no acute distress HEENT: NC/AT, EOMI, PERRL NECK : Supple, no tenderness CHEST : Decreased breath sounds , no wheezing, rhonchi, crackles HEART : Diminished S1-S2, systolic murmur ABDOMEN: normal bowel sounds, soft, obese, some distention, nontender EXTREMITIES : Minimal LE swelling, no LE tenderness, S/p right toe amputation, clean dressings applied SKIN: Pallor , warm NEUROLOGIC : alert and oriented x3,no facial asymmetry, speech fluent, moves extremities spontaneously Results & Data Vital Signs (Past 12 Hours) Vital Signs Temp Pulse Pulse Pulse Resp BP Pulse Ox 08/19/19 23:36 88 08/19/19 23:28 36.8 C 83 22 131/74 94
--- NOTE | 2019-08-20 09:10 | Hospitalist Progress Note ---
Date of Service August 20, 2019 Assessment & Plan (1) Amputation of right great toe: (2) PAD (peripheral artery disease): (3) Cellulitis of foot, right: Gangrenous right great toe (diabetic foot infection) s/p R toe amputation - presented with gangrenous necrotic rt great toe /diabetic toe infection - pt started on zosyn and daptomycin, added clindamycin - orthopedics consulted, case discussed w/ Dr. Petersen,now pt is s/p R toe amputation (08/18/2019) - wound cltx : + for MRSA, cont. daptomycin, d/c zosyn - pt tolerated procedure well, for proper healing, may need better management of DM and PAD PAD - underlying severe peripheral vascular disease - consult interventional cardiology, Dr. Ken DM2, insulin requiring, suboptimal control as of recent outpatient hemoglobin A1c of 8.17 April 2019 - current HbA1c 9.4% Basal insulin, ISS BG goal [id number] Chronic anemia, hemoglobin slightly lower than baseline - transfuse PRBC if hemoglobin less than 8 and or for symptomatic anemia Elevated Cr - suspect CKD, likely secondary to uncontrolled DM type 2 and vasc. disease -cont. to monitor - try to avoid nephrotoxic agents (4) S/P ICD (internal cardiac defibrillator) procedure: pt has AICD , would treat with IV Abx for 2-3 weeks to prevent bacterial seeding to AICD wiring complains of pain around rt foot area , increased erythema and swelling noted cont to monitor, will discuss w/ ID (5) CHF (congestive heart failure): chronic systolic heart failure secondary ischemic cardiomyopathy (EF less than 20% TTE, 2016) status post ICD, CAD as per records Equivocal volume status Congestion on x-ray although patient seems intravascularly dry w/ ARF on CKD, hypercalcemia Hold losartan, spironolactone for now given borderline hyperkalemia 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 Pt is lying in bed in no acute distress. Denies fever, chills, chest pain, shortness of breath, abd. pain, nausea or vomiting. R toe wound open to air. No drainage from wound noted. No sign. erythema or edema. Pt ambulated earlier today. Review of Systems Review of Systems: All systems reviewed & are unremarkable except as noted in HPI & below Constitutional: no fever and no chills Respiratory: no cough, no chest congestion and no dyspnea Cardiovascular: no chest pain, no palpitations and no edema Gastrointestinal: no abdominal pain, no nausea and no vomiting Musculoskeletal: s/ p R toe amputation, wound is open to air Physical Exam Physical Exam: GENERAL: elderly male lying in bed in no acute distress HEENT: NC/AT, EOMI, PERRL NECK : Supple, no tenderness CHEST : Decreased breath sounds , no wheezing, rhonchi, crackles HEART : Diminished S1-S2, systolic murmur ABDOMEN: normal bowel sounds, soft, obese, some distention, nontender EXTREMITIES : Minimal LE swelling, no LE tenderness, S/p right toe amputation, wound open to air, wound is clean and dry w/o any significant drainage noted, no sign. edema, only mild erythema SKIN: Pallor , warm NEUROLOGIC : alert and oriented x3,no facial asymmetry, speech fluent, moves extremities spontaneously Results & Data Vital Signs (Past 12 Hours) Vital Signs Temp Pulse Pulse Pulse Resp BP Pulse Ox 08/20/19 07:39 36.9 C 80 19 151/75 H 94 08/20/19 05:17 36.8 C 76 18 127/66 94 08/19/19 23:36 88 08/19/19 23:28 36.8 C 83 22 131/74 94 Laboratory Results 08/20/19 08/20/19 08/20/19 Range/Units 07:01 06:59 06:59 WBC (4.8-10.8) K/uL RBC (4.7-6.1) M/uL Hgb (14.0-18.0) g/dL Hct (42-52) % MCV (80-100) fL MCH (25-34) pg MCHC (32-36) g/dL RDW Std Deviation (36.4-46.3) fL RDW Coeff of Yenny (11.5-14.5) % Plt Count (130-400) K/uL MPV (7.4-10.4) fL PT (9.0-12.0) Seconds INR (0.9-1.1) APTT 57.2 H* (21.0-31.0) Seconds PTT Ratio 2.1 Sodium 139 (136-145) mmol/L Potassium 4.0 (3.5-5.1) mmol/L Chloride 105 (98-107) mmol/L Carbon Dioxide 27 (21-32) mmol/L Anion Gap 7.0 (3-11) BUN 26 H (7-18) mg/dl Creatinine 1.25 (0.6-1.4) mg/dl Est Cr Clr Drug Dosing 56.1 ml/min Est GFR ( Amer) 65.8 Est GFR (Non-Af Amer) 56.8 BUN/Creatinine Ratio 20.7 H (10-20) Glucose 162 H (70-99) mg/dl POC Glucose 181 H (70-99) Calcium 9.5 (8.5-10.1) mg/dl 08/20/19 08/20/19 08/19/19 Range/Units 06:59 00:28 21:08 WBC 8.07 (4.8-10.8) K/uL RBC 3.79 L (4.7-6.1) M/uL Hgb 10.9 L (14.0-18.0) g/dL Hct 32.7 L (42-52) % MCV 86.3 (80-100) fL MCH 28.8 (25-34) pg MCHC 33.3 (32-36) g/dL RDW Std Deviation 41.4 (36.4-46.3) fL RDW Coeff of Yenny 13.1 (11.5-14.5) % Plt Count 175 (130-400) K/uL MPV 10.5 H (7.4-10.4) fL PT (9.0-12.0) Seconds INR (0.9-1.1) APTT 50.7 H* (21.0-31.0) Seconds PTT Ratio 1.9 Sodium (136-145) mmol/L Potassium (3.5-5.1) mmol/L Chloride (98-107) mmol/L Carbon Dioxide (21-32) mmol/L Anion Gap (3-11) BUN (7-18) mg/dl Creatinine (0.6-1.4) mg/dl Est Cr Clr Drug Dosing ml/min Est GFR ( Amer) Est GFR (Non-Af Amer) BUN/Creatinine Ratio (10-20) Glucose (70-99) mg/dl POC Glucose 248 H (70-99) Calcium (8.5-10.1) mg/dl 08/19/19 08/19/19 08/19/19 Range/Units 18:04 16:40 13:59 WBC (4.8-10.8) K/uL RBC (4.7-6.1) M/uL Hgb (14.0-18.0) g/dL Hct (42-52) % MCV (80-100) fL MCH (25-34) pg MCHC (32-36) g/dL RDW Std Deviation (36.4-46.3) fL RDW Coeff of Yenny (11.5-14.5) % Plt Count (130-400) K/uL MPV (7.4-10.4) fL PT 12.8 H (9.0-12.0) Seconds INR 1.3 H (0.9-1.1) APTT 33.2 H (21.0-31.0) Seconds PTT Ratio 1.2 Sodium (136-145) mmol/L Potassium (3.5-5.1) mmol/L Chloride (98-107) mmol/L Carbon Dioxide (21-32) mmol/L Anion Gap (3-11) BUN (7-18) mg/dl Creatinine (0.6-1.4) mg/dl Est Cr Clr Drug Dosing ml/min Est GFR ( Amer) Est GFR (Non-Af Amer) BUN/Creatinine Ratio (10-20) Glucose (70-99) mg/dl POC Glucose 169 H (70-99) Calcium (8.5-10.1) mg/dl 08/19/19 Range/Units 10:53 WBC (4.8-10.8) K/uL RBC (4.7-6.1) M/uL Hgb (14.0-18.0) g/dL Hct (42-52) % MCV (80-100) fL MCH (25-34) pg MCHC (32-36) g/dL RDW Std Deviation (36.4-46.3) fL RDW Coeff of Yenny (11.5-14.5) % Plt Count (130-400) K/uL MPV (7.4-10.4) fL PT (9.0-12.0) Seconds INR (0.9-1.1) APTT (21.0-31.0) Seconds PTT Ratio Sodium (136-145) mmol/L Potassium (3.5-5.1) mmol/L Chloride (98-107) mmol/L Carbon Dioxide (21-32) mmol/L Anion Gap (3-11) BUN (7-18) mg/dl Creatinine (0.6-1.4) mg/dl Est Cr Clr Drug Dosing ml/min Est GFR ( Amer) Est GFR (Non-Af Amer) BUN/Creatinine Ratio (10-20) Glucose (70-99) mg/dl POC Glucose 227 H (70-99) Calcium (8.5-10.1) mg/dl Medications Administered Current Inpatient Medications Acetaminophen (Tylenol) 650 mg PO Q4H PRN PRN Reason: Pain or Fever Stop: 09/17/19 00:07 Last Admin: 08/19/19 00:53 Dose: 650 mg Documented by: Aspirin (Ecotrin Ectab) 81 mg PO DAILY [facility] Stop: 09/17/19 08:59 Last Admin: 08/20/19 07:29 Dose: 81 mg Documented by: Carvedilol (Coreg) 3.125 mg PO BIDM [facility] Stop: 09/17/19 07:59 Last Admin: 08/20/19 07:29 Dose: 3.125 mg Documented by: Dextrose (Dextrose 50%) 25 - 50 ml IV UD PRN; Protocol PRN Reason: Hypoglycemia Protocol Stop: 09/17/19 00:07 Glucagon (Glucagen) 1 mg SQ UD PRN; Protocol PRN Reason: Hypoglycemia Protocol Stop: 09/17/19 00:07 Glucose (Dex4 Glucose) 4 - 8 tabs PO UD PRN; Protocol PRN Reason: Hypoglycemia Protocol Stop: 09/17/19 00:07 Glucose (Glucose 40%) 15 - 30 gm PO UD PRN; Protocol PRN Reason: Hypoglycemia Protocol Stop: 09/17/19 00:07 Hydromorphone HCl (Dilaudid) 0.25 mg IV Q3H PRN PRN Reason: Pain Stop: 09/01/19 00:07 Last Admin: 08/20/19 07:24 Dose: 0.25 mg Documented by: Promethazine HCl 12.5 mg/ (Sodium Chloride) 50.5 mls @ 202 mls/hr IV Q6H PRN PRN Reason: Nausea And Vomiting Stop: 09/17/19 00:07 Piperacillin Sod/Tazobactam (Sod 3.375 gm/ Dextrose) 115 mls @ 28.75 mls/hr IV Q8H [facility]; Protocol Stop: 08/28/19 00:59 Last Admin: 08/20/19 07:34 Dose: 28.8 mls/hr Documented by: Daptomycin 300 mg/ Syringe 6 mls @ 3 mls/min IV Q24H [facility]; Protocol Stop: 08/28/19 01:59 Last Admin: 08/20/19 01:04 Dose: 3 mls/min Documented by: Heparin Sodium/Dextrose (Heparin Sodium/Dextrose) 25,000 units in 500 mls @ 29 mls/hr IV .[id number] [facility]; Protocol Stop: 09/18/19 17:14 Last Titration: 08/20/19 07:17 Dose: 1,450 units/hr, 29 mls/hr Documented by: Insulin Aspart (Novolog Flexpen) 0 units SC ACHS [facility] Stop: 09/17/19 00:07 Last Admin: 08/20/19 08:30 Dose: 3 units Documented by: Insulin Glargine (Lantus Solostar Pen) 20 units SC HS [facility] Stop: 09/17/19 20:59 Last Admin: 08/19/19 21:10 Dose: 20 units Documented by: Miscellaneous (Carbohydrates For Hypoglycemia) 15 - 30 gm PO UD PRN PRN Reason: Hypoglycemia Protocol Stop: 09/17/19 00:07 Miscellaneous Information (Consult) 1 ea N/A UD PRN PRN Reason: Consult Stop: 09/16/19 19:07 Miscellaneous Information (Consult) 1 ea N/A UD PRN PRN Reason: Consult Stop: 09/17/19 00:20 Multivitamins (Multivitamin Tab) 1 tab PO QAM [facility] Stop: 09/18/19 08:59 Last Admin: 08/20/19 07:30 Dose: 1 tab Documented by: Naloxone HCl (Narcan) 0.1 mg IV Q5M PRN PRN Reason: Oversedation/Resp Depression Stop: 09/17/19 18:17 Nitroglycerin (Nitrostat) 0.4 mg SL UD PRN PRN Reason: Chest Pain Stop: 09/17/19 00:07 Oxycodone HCl (Roxicodone Immediate Rel) 5 mg PO Q4H PRN PRN Reason: Pain Stop: 09/01/19 00:16 Last Admin: 08/19/19 12:59 Dose: 5 mg Documented by:
[2019-08-20] MEDS: OXYCODONE HCL IR 5 MG TAB (IMMEDIATE RELEASE) PO PRN (11:04)
[2019-08-20] MEDS: HEPARIN SODIUM/DEXTROSE 25,000 UNITS/500 ML BAG IV SCH (12:31)
--- NOTE | 2019-08-20 12:35 | Cardiology Progress Note ---
Date of Service August 20, 2019 Assessment & Plan (1) Amputation of right great toe: Pt transferred to ICU as an isolation bed due to MRSA of operative wound culture. Not due to acute decompensation . Will return to telemetry bed when isolation room available. pt presented to > 2 months of progressive R great toe/foot pain, black necrotic tissue noted on first arrival on visual inspection. Underwent amputation, 08/18/19, which he tolerated well. Afebrile, blood cultures negative, wound culture + MRSA. Osteomyelitis, likely a consideration. Arterial duplex suggests diffuse RLE PAD. I have consulted Dr Ken to see him in endovascular medicine consultation. (2) Ischemic cardiomyopathy: Continue current medications. Chronic EKG abnormalities noted pre op , unchanged compared to 1 year ago. No anginal symptoms, stable volume status. Continue heparin gtt, due to h/o LV thrombus. (3) S/P ICD (internal cardiac defibrillator) procedure: Continue antibiotics for foot wound, need to treat his infection appropriately to prevent seeding to the AICD. (4) Left ventricular aneurysm: Stable echo findings. Coumadin on hold. Continue heparin gtt. Subjective Pt seen in ICU room 111. Denies chest pain or SOB. Telemetry reveals SR without significant arrhythmia. Review of Systems Review of Systems: All systems reviewed & are unremarkable except as noted in HPI & below Physical Exam Physical Exam: Temp Pulse Resp BP Pulse Ox 36.9 C 80 19 151/75 H 94 08/20/19 07:39 08/20/19 07:39 08/20/19 07:39 08/20/19 07:39 08/20/19 07:39 Constitutional: WD/WN, vitals as above Respiratory: normal respiratory effort, lungs clear to auscultation Cardiovascular: RRR, no murmur, no edema Gastrointestinal (Abdomen): normal bowel sounds, soft, nontender, no hepatosplenomegaly Musculoskeletal: s/p R great toe amputation , wrapped Results & Data Vital Signs (Past 12 Hours) Vital Signs Temp Pulse Pulse Resp BP Pulse Ox 08/20/19 07:39 36.9 C 80 19 151/75 H 94 08/20/19 05:17 36.8 C 76 18 127/66 94 Laboratory Results Coagulation 08/19/19 08/19/19 08/20/19 Range/Units 13:59 18:04 00:28 PT 12.8 H (9.0-12.0) Seconds APTT 33.2 H 50.7 H* (21.0-31.0) Seconds 08/20/19 Range/Units 06:59 PT (9.0-12.0) Seconds APTT 57.2 H* (21.0-31.0) Seconds CBC 08/20/19 Range/Units 06:59 WBC 8.07 (4.8-10.8) K/uL RBC 3.79 L (4.7-6.1) M/uL Hgb 10.9 L (14.0-18.0) g/dL Hct 32.7 L (42-52) % Plt Count 175 (130-400) K/uL Comprehensive Metabolic Panel 08/20/19 Range/Units 06:59 Sodium 139 (136-145) mmol/L Potassium 4.0 (3.5-5.1) mmol/L Chloride 105 (98-107) mmol/L Carbon Dioxide 27 (21-32) mmol/L BUN 26 H (7-18) mg/dl Creatinine 1.25 (0.6-1.4) mg/dl Glucose 162 H (70-99) mg/dl Calcium 9.5 (8.5-10.1) mg/dl Intake and Output 08/19/19 08/20/19 08/20/19 22:59 06:59 14:59 Intake Total 287.917 / 1509.483 655.566 / 1509.483 221.333 / 221.333 Balance 287.917 / 1509.483 655.566 / 1509.483 221.333 / 221.333 Intake: IV 187.917 / 774.483 415.566 / 774.483 221.333 / 221.333 Cleocin 900 mg In D5w 50 ml @ 56 / 168 56 / 168 112 mls/hr IV Q8H [facility] Rx#: [id number] HEPARIN SODIUM/DEXTROSE 25,000 16.917 / 261.483 244.566 / 261.483 106.333 / 106.333 units In 500 ml @ 1,450 UNITS/ HR 29 mls/hr IV .[id number] [facility] Rx #:[id number] Zosyn 3.375 gm In D5 100 ml @ 115 / 345 115 / 345 115 / 115 28.75 mls/hr IV Q8H [facility] Rx#: [id number] Oral 100 / 735 240 / 735 Other: # Unmeasured Voids 1 2 Weight 90 kg 90 kg Patient Weight 08/21/19 06:59 Weight 90 kg Medications Administered Current Inpatient Medications Acetaminophen (Tylenol) 650 mg PO Q4H PRN PRN Reason: Pain or Fever Stop: 09/17/19 00:07 Last Admin: 08/19/19 00:53 Dose: 650 mg Documented by: Aspirin (Ecotrin Ectab) 81 mg PO DAILY [facility] Stop: 09/17/19 08:59 Last Admin: 08/20/19 07:29 Dose: 81 mg Documented by: Carvedilol (Coreg) 3.125 mg PO BIDM [facility] Stop: 09/17/19 07:59 Last Admin: 08/20/19 07:29 Dose: 3.125 mg Documented by: Dextrose (Dextrose 50%) 25 - 50 ml IV UD PRN; Protocol PRN Reason: Hypoglycemia Protocol Stop: 09/17/19 00:07 Glucagon (Glucagen) 1 mg SQ UD PRN; Protocol PRN Reason: Hypoglycemia Protocol Stop: 09/17/19 00:07 Glucose (Dex4 Glucose) 4 - 8 tabs PO UD PRN; Protocol PRN Reason: Hypoglycemia Protocol Stop: 09/17/19 00:07 Glucose (Glucose 40%) 15 - 30 gm PO UD PRN; Protocol PRN Reason: Hypoglycemia Protocol Stop: 09/17/19 00:07 Hydromorphone HCl (Dilaudid) 0.25 mg IV Q3H PRN PRN Reason: Pain Stop: 09/01/19 00:07 Last Admin: 08/20/19 07:24 Dose: 0.25 mg Documented by: Promethazine HCl 12.5 mg/ (Sodium Chloride) 50.5 mls @ 202 mls/hr IV Q6H PRN PRN Reason: Nausea And Vomiting Stop: 09/17/19 00:07 Piperacillin Sod/Tazobactam (Sod 3.375 gm/ Dextrose) 115 mls @ 28.75 mls/hr IV Q8H [facility]; Protocol Stop: 08/28/19 00:59 Last Infusion: 08/20/19 11:56 Dose: Infused Documented by: Daptomycin 300 mg/ Syringe 6 mls @ 3 mls/min IV Q24H [facility]; Protocol Stop: 08/28/19 01:59 Last Admin: 08/20/19 01:04 Dose: 3 mls/min Documented by: Heparin Sodium/Dextrose (Heparin Sodium/Dextrose) 25,000 units in 500 mls @ 29 mls/hr IV .[id number] [facility]; Protocol Stop: 09/18/19 17:14 Last Titration: 08/20/19 07:17 Dose: 1,450 units/hr, 29 mls/hr Documented by: Insulin Aspart (Novolog Flexpen) 0 units SC ACHS [facility] Stop: 09/17/19 00:07 Last Admin: 08/20/19 08:30 Dose: 3 units Documented by: Insulin Glargine (Lantus Solostar Pen) 20 units SC HS [facility] Stop: 09/17/19 20:59 Last Admin: 08/19/19 21:10 Dose: 20 units Documented by: Miscellaneous (Carbohydrates For Hypoglycemia) 15 - 30 gm PO UD PRN PRN Reason: Hypoglycemia Protocol Stop: 09/17/19 00:07 Miscellaneous Information (Consult) 1 ea N/A UD PRN PRN Reason: Consult Stop: 09/16/19 19:07 Miscellaneous Information (Consult) 1 ea N/A UD PRN PRN Reason: Consult Stop: 09/17/19 00:20 Multivitamins (Multivitamin Tab) 1 tab PO QAM [facility] Stop: 09/18/19 08:59 Last Admin: 08/20/19 07:30 Dose: 1 tab Documented by: Naloxone HCl (Narcan) 0.1 mg IV Q5M PRN PRN Reason: Oversedation/Resp Depression Stop: 09/17/19 18:17 Nitroglycerin (Nitrostat) 0.4 mg SL UD PRN PRN Reason: Chest Pain Stop: 09/17/19 00:07 Oxycodone HCl (Roxicodone Immediate Rel) 5 mg PO Q4H PRN PRN Reason: Pain Stop: 09/01/19 00:16 Last Admin: 08/20/19 11:04 Dose: 5 mg Documented by:
--- NOTE | 2019-08-20 13:38 | Orthopedic Progress Note ---
Date of Service August 20, 2019 Assessment & Plan (1) Amputation of right great toe: Overall he is doing well. He is having a little bit of pain in the foot but is not too bad. He has already been up and ambulating. He does have MRSA in his wound. He is currently on antibiotics for that. His Coumadin has been stopped and he is currently on heparin. They are likely planning to do some vascular procedures in the near future. He can leave the incision open to air when he is not being active. When he is up and ambulating he can cover the incision with some gauze and an Aravind wrap to keep it from rubbing on a hard sole shoe. Present on Admission?: Yes Subjective Miguel Ángel was seen and examined at bedside. Overall is doing fairly well. He has been up and ambulating on his left foot. He is awaiting to get some vascular studies for his lower extremities. He has no complaints. Physical Exam Musculoskeletal: On physical examination of the right foot, the dressing was removed. The incision looks good. There is very little drainage and very little bleeding. Is a little bit of maceration around the edge of the wound but not much. No erythema. Results & Data Vital Signs (Past 12 Hours) Vital Signs Temp Pulse Pulse Resp BP Pulse Ox 08/20/19 07:39 36.9 C 80 19 151/75 H 94 08/20/19 05:17 36.8 C 76 18 127/66 94 PG Care Time/CCT Total # of Minutes Spent Total Time Spent with Patient: Total time spent is greater than 50% in coordination of care (as documented) at patient's floor/unit and/or counseling patient: Coding Level of Care Code None Diagnoses Amputation of right great toe S98.111A
[2019-08-20] MEDS ORDERED: PHARMACY GLYCEMIC MGMT CONSULT PRN (14:05)
[2019-08-20] MEDS ORDERED: WARFARIN SOD 7.5 MG TAB PO SCH (16:00)
[2019-08-20] MEDS ORDERED: INSULIN GLARGINE SOLOSTAR 100 UNITS/ML 3 ML PEN SC ONE (16:30)
--- NOTE | 2019-08-20 17:49 | Vascular Medicine Consultation ---
Date of Consultation August 20, 2019 Assessment & Plan (1) PAD (peripheral artery disease): 2. RT great toe necrosis post amputation 3. Type 2 DM 4. 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 Chronic systolic heart failure 6. Prior tobacco abuse Patient postop day 2 following right great necrotic toe amputation. Limited flow noted at time of surgery and sluggish flow persists on exam. Arterial duplex suggestive of diffuse right lower extremity arterial system disease Per my review of arterial duplex concern for multilevel disease particularly high-grade external iliac/SULFUR CHLORIDE OPERATOR, SFA/popliteal disease. Recommend proceeding with bilateral lower extremity angiogram to further define anatomy. Discussed risks, benefits, terms of procedure with patient and and they are willing to proceed. We will plan to perform tomorrow a.m. via left [employer]ULF[employer]LORIDE OPERATOR. In the interim continue heparin infusion. History of Present Illness Attending Physician: Bandar Zamora MD History of Present Illness Mr. Zhao is a pleasant 78 history of coronary artery disease post remote LAD infarct with resulting apical aneurysm post aneurysm resection 06/2012 on chronic anticoagulation with Coumadin, persistent severe LV dysfunction EF 20% with chronic systolic heart failure, mild regurgitation, type 2 diabetes on insulin, prior tobacco abuse and peripheral arterial disease. Patient transferred to [facility] 08/18/2019 from [facility] in the setting of necrotic right great toe and possible osteomyelitis. Underwent great toe amputation 2 days ago. Surgery uncomplicated but blood flow to area thought to be limited. Has been maintained on heparin infusion and broad-spectrum IV antibiotics. Patient reports right great toe injury initially months ago in the setting of ingrown toenail removal. Has been followed by podiatry since that time. Prior to this event denies any prior ulcerations. Does report longstanding exertional Dyspnea claudication. Was previously seen by vascular surgery back in 2013. Patient unclear of details of what led to that visit but was scheduled to undergo angiogram. Patient did not go through procedure due to a friend having complications from a vascular procedure around the same time. Right leg arterial duplex showed monophasic waveforms from SULFUR CHLORIDE OPERATOR through tibials. 2D imaging shows extensive atherosclerotic, calcified plaque but no focal high- grade stenosis/obstruction by Doppler. Aortoiliac duplex was negative for AAA or significant disease in his bilateral common iliacs. Allergies Allergy/AdvReac Type Severity Reaction Status Date / Time No Known Allergies Allergy Unverified 08/17/19 21:21 Home Medications Home Medications Medication Instructions Recorded Confirmed Type aspirin [Aspirin Low Dose] 81 mg PO DAILY 08/17/19 08/17/19 History atorvastatin 80 mg PO DAILY 08/17/19 08/17/19 History carvedilol 3.125 mg PO BIDM 08/17/19 08/17/19 History cephalexin 500 mg PO Q8H 08/17/19 08/17/19 History furosemide 40 mg PO DAILY PRN 08/17/19 08/17/19 History insulin glargine [Lantus Solostar 40 unit SUBCUT HS 08/17/19 08/17/19 History U-100 Insulin] losartan 25 mg PO DAILY 08/17/19 08/17/19 History oxycodone 5 mg PO Q6H PRN 08/17/19 08/17/19 History spironolactone 25 mg PO DAILY 08/17/19 08/17/19 History warfarin 10 mg PO DAILY 08/17/19 08/17/19 History Patient History Medical History (Updated 08/20/19 @ 17:54 by Burton Ken MD) Anemia Aortic stenosis CAD (coronary artery disease) CHF (congestive heart failure) Diabetes Ischemic cardiomyopathy Left ventricular aneurysm Necrosis of toe (Resolved) Renal failure (ARF), acute on chronic Surgical History History of open heart surgery History of open heart surgery S/P ICD (internal cardiac defibrillator) procedure Social History Preferred Language: Macanese Communication Ability: Effective Beliefs That Will Affect Care: None Current Living Situation: Spouse Other Information That Helps Us Care for You: No Feels Safe at Home: Yes Safety Concerns: Feels Safe At This Time Smoking Status: Former smoker Do You Dip or Chew Tobacco: No ; Hx Alcohol Use: No Hx Substance Use: No Review of Systems Review of Systems: All systems reviewed & are unremarkable except as noted in HPI & below Physical Exam Physical Exam: General: Comfortable, no acute distress Eyes: Sclerae anicteric, extraocular movements intact HENT: Oropharynx clear mucous membranes moist Neck: Normal carotid upstrokes, no bruits. No JVD. Lungs: Clear to auscultation bilaterally, no rhonchi or wheezes Cardiac: Regular rate and rhythm, 2 out of 6 holosystolic murmur heard best at the apex Abdomen: Soft, nontender, nondistended, positive bowel sounds. Neuro: Nonfocal Psych: Alert orient x3, normal affect and mood Extremities/Vascular: -- 2+ radial bilaterally --1+ right femoral, 2+ left --1+ popliteal, 1+ left popliteal --Nonpalpable DP/PT pulses bilaterally --Diminished cap refill bilaterally --Surgical incision over right great toe intact, no induration or drainage Results & Data Vital Signs (Past 12 Hours) Vital Signs Temp Pulse Resp BP Pulse Ox 08/20/19 07:39 98.4 F 80 19 151/75 H 94 PG Care Time/CCT Total # of Minutes Spent Total Time Spent with Patient: Total time spent is greater than 50% in coordination of care (as documented) at patient's floor/unit and/or counseling patient:
[2019-08-20] MEDS ORDERED: INSULIN GLARGINE SOLOSTAR 100 UNITS/ML 3 ML PEN SC SCH (21:00)
[2019-08-20] MEDS: ACETAMINOPHEN 325 MG TAB PO PRN (21:42)
[2019-08-21 00:15] LABS: Appearance Urine Clear (Clear); Bacteria Urine Automated Negative (Negative); Bilirubin Urine Negative (Negative); Blood Urine Negative (Negative); Cast Urine Automated 0 /lpf (0-5); Color Urine Dark Yellow; Epithelial Cell Urine Auto 0-5 /lpf (0-5); Glucose Urine UA 2+ (Negative); Ketones Urine Negative (Negative); Leukocyte Esterase Urine Negative (Negative); Nitrite Urine Negative (Negative); Protein Urine 1+ (Negative); RBC Urine Automated 0-4 /hpf (0-4); Specific Gravity Urine 1.021 (1.000-1.030); Urobilinogen Urine Negative (Negative)
[2019-08-21] MEDS: DAPTOmycin 300 MG in SYRINGE 0 ML IV SCH (00:45)
[2019-08-21] MEDS: HEPARIN SODIUM/DEXTROSE 25,000 UNITS/500 ML BAG IV SCH (04:47)
[2019-08-21 04:48] LABS: Hematocrit (blood only) 31.9 % (42-52); Hemoglobin 10.6 g/dL (14.0-18.0); Mean Corpuscular Hemoglobin 28.7 pg (25-34); Mean Corpuscular Hgb Conc 33.2 g/dL (32-36); Mean Corpuscular Volume 86.4 fL (80-100); Mean Platelet Volume 9.8 fL (7.4-10.4); Platelet Count 162 K/uL (130-400); RDW Coefficient of Variation 12.9 % (11.5-14.5); RDW Standard Deviation 41.3 fL (36.4-46.3); Red Blood Count 3.69 M/uL (4.7-6.1); White Blood Count 7.43 K/uL (4.8-10.8)
[2019-08-21 05:18] LABS: BUN Creatinine Ratio 19.2 (10-20); Calcium 9.8 mg/dl (8.5-10.1); Creatinine Clr Calc Pharmacy 54.7 ml/min; Est GFR (African American) 63.9; Est GFR (Non-African American) 55.2; Magnesium 2.1 mg/dl (1.8-2.4)
--- NOTE | 2019-08-21 08:04 | Vascular Medicine ProgressNote ---
Date of Service August 21, 2019 Assessment & Plan (1) PAD (peripheral artery disease): 2. RT great toe necrosis post amputation 3. Type 2 DM 4. 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 Chronic systolic heart failure 6. Prior tobacco abuse Proceed with bilateral lower extremity angiogram. Subjective No issues overnight. Rt leg pain well controlled. Review of Systems Review of Systems: All systems reviewed & are unremarkable except as noted in HPI & below Physical Exam Physical Exam: General: Comfortable, no acute distress Lungs: Clear to auscultation bilaterally, no rhonchi or wheezes Cardiac: Regular rate and rhythm, 2 out of 6 holosystolic murmur heard best at the apex Abdomen: Soft, nontender, nondistended, positive bowel sounds. Neuro: Nonfocal Psych: Alert orient x3, normal affect and mood Extremities/Vascular: -- 2+ radial bilaterally --1+ right femoral, 2+ left --Nonpalpable DP/PT pulses bilaterally --Surgical incision dressed Results & Data Vital Signs (Past 12 Hours) Vital Signs Temp Pulse Pulse Pulse Resp BP Pulse Ox 08/21/19 07:55 86 18 139/76 93 08/21/19 00:00 98.2 F 78 78 78 21 131/59 L 95 08/20/19 20:00 98.2 F 89 89 89 18 135/64 98 PG Care Time/CCT Total # of Minutes Spent Total Time Spent with Patient: Total time spent is greater than 50% in coordination of care (as documented) at patient's floor/unit and/or counseling patient:
[2019-08-21] MEDS ORDERED: fentaNYL citrate 100 MCG/2 ML VIAL ONE ×4 (08:08→11:44)
[2019-08-21] MEDS ORDERED: HEPARIN (PORCINE) 1000 UNIT/ML 10 ML (CATH LAB USE ONLY) ONE ×2 (08:08→10:31)
[2019-08-21] MEDS ORDERED: MIDAZOLAM HCL 1 MG/ML 2ML VIAL ONE ×4 (08:08→09:54)
--- NOTE | 2019-08-21 09:21 | Hospitalist Progress Note ---
Date of Service August 21, 2019 Assessment & Plan (1) Amputation of right great toe: presented with gangrenous necrotic rt great toe /diabetic toe infection underlying severe peripheral vascular disease orthopedics consulted -appreciate input from Dr Petersen s/p amputation of rt great toe on 08/18/2019 wound culture : MRSA , on daptomycin pt has AICD , would treat with IV Abx for 2-3 weeks to prevent bacterial seeding to AICD wiring complains of pain around rt foot area , increased erythema and swelling noted cont to monitor (2) PAD (peripheral artery disease): appreciate input from interventional cardiology s/p angioplasty of rt ant tibial artery and stent on common illiac artery on 08/21/2019 pt will cont with Aspirin and Plavix resume coumadin , apirin can be discontinued when INR theraputic need to continue with plavix for 3 months repeat lower ext arterial doppler in 3 months clinic follow up with interventional cardiology after discharge from hospital (3) CHF (congestive heart failure): chronic systolic heart failure secondary ischemic cardiomyopathy (EF less than 20% TTE, 2016) status post ICD, CAD as per records Equivocal volume status 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 Subjective underwent rt lower extremity angiogram followed by angioplasty of rt ant tibial artery and stent on common illiac vein pt reports of pain /tenderness rt great toe amputation site very tender to touch , feels area is throbbing no fever or chills no SOB or chest pain , no cough Review of Systems Review of Systems: As per HPI, all 10 systems reviewed, all other ROS negative Musculoskeletal: right great toe amputation , pain and swelling at the amputation site Physical Exam Constitutional: WD/WN, vitals as above Eyes: PERRL, conjunctivae normal, anicteric sclerae Neck: trachea midline, no thyromegaly normal visual inspection Respiratory: normal respiratory effort, lungs clear to auscultation normal respiratory effort Auscultation: lungs clear to auscultation bilaterally Cardiovascular: RRR, no murmur, no edema Rate/Rhythm: regular rate and regular rhythm Heart Sounds: + murmur Gastrointestinal (Abdomen): normal bowel sounds, soft, nontender, no hepatosplenomegaly Musculoskeletal: Spine: normal cervical ROM and no pain with cervical ROM s/p right great toe amputation , erythema and swelling noted on rt forefoot increased warmth , tender to touch dried blood noted on amputation site , sutures present Neurologic: patellar DTR's 2+ bilat, sensation intact and PERRL, EOMI, accommodation nl, no face palsy, no dysarthria moves all extremities Psychiatric: A+Ox3, euthymic affect Orientation: alert and oriented x 3 Results & Data Vital Signs (Past 12 Hours) Vital Signs Temp Pulse Pulse Pulse Resp BP Pulse Ox 08/21/19 07:55 86 18 139/76 93 08/21/19 00:00 36.8 C 78 78 78 21 131/59 L 95
[2019-08-21] MEDS ORDERED: NITROGLYCERIN/D5W 100MCG/ML 20ML SYR ONE (10:07)
--- NOTE | 2019-08-21 12:03 | Pharmacy Report ---
Pharmacy Glycemic Short Note 2 - Date of Service August 21, 2019 - Glycemic Short BSG Results (Last 24 hours): 08/20/19 08/20/19 08/21/19 16:09 21:07 04:32 Glucose 172 H POC Glucose 176 H 235 H 08/21/19 07:25 Glucose POC Glucose 177 H OUTPATIENT ANTIDIABETIC REGIMEN: * Lantus 40 units daily * A1c = 9.4 ASSESSMENT: * Patient admitted for diabetic foot infxn, PAD, necrotic R great toe * He is now s/p amputation of R great toe and IV abx continue * Patient is poorly controlled type 2 diabetic treated with basal insulin monotherapy. He reportedly trialed Novolog in the past but was transitioned to Lantus monotherapy * Fasting BSGs have been elevated, will continue to up-titrate basal insulin dose (have not uptitrated to out-pt dose yet due to use of Novolog w/ meals this admission) * Novolog CF and CR have been adjusted as well to allow for increased doses PLAN FOR INPATIENT GLYCEMIC CONTROL: * Basal insulin * Lantus 30 units Q HS * Bolus insulin * NovoLog per scale ACHS or Q6hrs while NPO * Goal Range: Low 110 mg/dL - High 140 mg/dL * Correction Factor: 20 mg/dL/unit * Nutritional / Prandial insulin per carb ratio of 1 unit per 8 grams CHO consumed PLAN FOR DISCHARGE: * Would recommend adding meal-time insulin on discharge, a set dose would be easiest for him to manage if his meals are fairly consistent in carb content. At present I would estimate he will need 50+ units of insulin per day when tolerating a diet. * hospital educator has also recommend consideration of Metformin on discharge as an alternative, this could also be considered if no contraindications present at time of discharge. Perhaps this could be an option in the future, but given A1c > 9 and recent amputation, infxn and poor perfusion glycemic targets may be achieved more quickly with the basal/bolus SQ approach.
--- NOTE | 2019-08-21 12:19 | Post Anesthesia Assessment ---
Date of Service August 21, 2019 Post Sedation Assessment Vital Signs Temp Pulse Pulse Pulse Resp BP Pulse Ox 08/21/19 07:55 86 18 139/76 93 08/21/19 00:00 98.2 F 78 78 78 21 131/59 L 95 08/20/19 20:00 98.2 F 89 89 89 18 135/64 98 08/20/19 16:00 98.6 F 86 18 137/73 93 Recovery Score Activity: Moves 4 extremities Respiration: Deep Breath/Cough Circulation: +/-20% PreAnes Value Consciousness: Fully Awake Oxygen Saturation: O2 needed for >90% Post Anesthesia Score: 9 Discharge Sedation Level of Care: Fast Track Phase II Post Sedation Plan On clinical assessment, the patient appears to have tolerated the sedation without complications. Patient is recovering as anticipated. Patient will continue to be monitored by nursing and may be discharged when isis tion discharge criteria are met per below protocol. Upon Completions of procedure up to 15 minutes continue every 5 minute vital signs and the P.A.R. score; then discharge to a Phase I or Fast Track to Phase II per the following guidelines: * Discharge Patient to appropriate Phase II area if PAR is 8 or greater or return to pre- procedure baseline. The post - procedure orders will be as directed. * If PAR score is less than 8 or not return to pre-procedure baseline then patient will follow Phase I monitoring till PAR is reached for Phase II. The Phase I may be done in procedure room or may call to secure a Phase I area. * If naloxone or flumazenil are used for reversal, hold in Phase I for continued monitoring from when last reversal dose was given for a minimum of 60 minutes or longer pending the nurse and/or physician discretion of patient condition before discharge to Phase II. Please call the Sedation Physician to re-evaluate and complete post-note for discharge to Phase II area. Do NOT discharge from procedure sedation or Phase 1 until post- sedation evaluation note is complete by procedure /sedation MD Sedation Discharge Instructions to be given to the patient at discharge to home.
--- NOTE | 2019-08-21 12:22 | Operative Report ---
PG Post Operative Report Pre & Post Diagnosis Operation Date: 08/18/19 10:10 Pre-Op Diagnosis: Necrotic right great toe Post-Op Diagnosis: Necrotic right great toe, Peripheral arterial disease I identified the patient and participated in the time-out.: Yes Procedure Operation Date: 08/21/19 08:00 Bilateral lower extremity angiogram Right anterior tibial artery angioplasty Right common iliac artery stenting Ultrasound guided vascular access Moderate sedation Bilateral closure device placement Surgeon Santo Ken MD Sas Programmer Analyst Carlos Lopez Estimated Blood Loss 25 Findings Consistent with Post-Op Diagnosis Abdominal aorticno significant aneurysmal or stenotic disease Right lower extremity Right common iliac with heavily calcified, nodular 80 to 90% proximal stenosis (pullback gradient 30 mmHg). External, internal iliac calcified with mild diffuse disease Right ROLLER ENGRAVER with mild to moderate diffuse disease SFA/popliteal heavily calcified with mild to moderate diffuse disease Anterior tibial subtotally occluded in the midsegment, reconstitutes distally via collaterals from peroneal and extends in the foot giving rise to pedal arch. Peroneal artery widely patent to the ankle Posterior tibial occluded in the midsegment fills distally via collaterals Left lower extremity Common iliac, external, internal iliac arteries calcified, widely patent Left ROLLER ENGRAVER calcified, mild to moderate diffuse disease Specimens None Drains None Anesthesia Type RN Sedation Complications none Disposition Disposition: Recovery Room Indications Peripheral arterial disease, critical limb ischemia post amputation of necrotic first digit on right foot Description of Procedure Left common femoral access obtained with micropuncture needle under ultrasound guidance, short 5Fr sheath place Aortogram/RLE angiogram performed with RIM catheterpullback gradient across right common iliac artery stenosis 30 mmHg Using glide advantage wire, quick cross placed into proximal SFA to visualize distal arteries 5 Fr destination sheath placed from left ROLLER ENGRAVER access to right ROLLER ENGRAVER Subtotal MAGO occlusion crossed with 0.14 seeker catheter and 0.14 command wire Distal intraluminal position confirmed via injection through support catheter Angioplasty to anterior tibial artery with 3.0 x 150 mm balloon IA vasodilators administered Brisk flow noted in anterior tibial artery into dorsalis pedis artery Destination sheath pulled back into abdominal aorta and rim catheter placed to further visualize right common iliac 7 Fr sheath placed to right common femoral artery with micropuncture needle under ultrasound guidance Right common ostial iliac stenosis crossed with 018 wire IVUS confirmed heavily calcified 80% proximal stenosis with poststenotic ectasia 9.0 x 38 mm Lifestream covered stent placed from ostium of right common iliac across stenosis Postdilated with 10 mm balloon Mild residual retrograde flow noted behind covered stent and a second 9.0 x 38 mm Lifestream placed, overlapping with distal aspect of initial stent and extending into distal common iliac Post procedure good angiographic result, no evidence of dissection or perforation with good two-vessel runoff to the foot Contrast used: 200 Access closure: Mynx to left ROLLER ENGRAVER 5Fr access, Star close to right ROLLER ENGRAVER 7 Fr access Summary: 1. Right lower [id number] to 90% heavily calcified proximal common iliac stenosis, mild to moderate diffuse SFA/popliteal disease, subtotally occluded anterior tibial artery, occluded posterior tibial artery. 2. Left lower extremitycalcified, mild diffuse iliac/ROLLER ENGRAVER disease 3. Successful right common iliac artery stenting with 2 overlapping covered stents (Lifestream 9.0 x 38, 9.0 x 38). 4. Successful angioplasty of right anterior tibial artery with 3.0 balloon Recommendations: Continue clopidogrel and Coumadin for 3 months then can drop clopidogrel Continue ASCVD risk factor modification Follow-up ultrasound in 1 month. I attest to the content of the Intraoperative Record and any orders documented therein. Any exceptions are noted below.
[2019-08-21] MEDS ORDERED: CLOPIDOGREL BISULFATE 300 MG TAB PO STA (12:39)
[2019-08-21] MEDS ORDERED: SODIUM CHLORIDE 0.9% 1000ML 1,000 ML IV SCH (12:45)
[2019-08-21] MEDS: INSULIN ASPART 100 UNITS/ML 3 ML PEN SC SCH ×4 (12:50→21:15)
[2019-08-21] MEDS: MULTIVITAMIN TAB PO SCH (13:29)
[2019-08-21] MEDS: ASPIRIN 81 MG ECTAB PO SCH (13:30)
[2019-08-21] MEDS: carvediloL 3.125 MG TAB PO SCH ×2 (14:01→16:42)
[2019-08-21] MEDS: HYDROmorphone INJ 0.5 MG/0.5 ML SYR IV PRN (14:02)
[2019-08-21] MEDS: OXYCODONE HCL IR 5 MG TAB (IMMEDIATE RELEASE) PO PRN ×2 (15:33→19:46)
--- NOTE | 2019-08-21 18:24 | Cardiology Progress Note ---
Date of Service August 21, 2019 Assessment & Plan (1) Amputation of right great toe: 08/18/2019 (2) PAD (peripheral artery disease): Status post bilateral lower extremity angiogram 08/21/2019, bilateral femoral artery access Right anterior tibial artery angioplasty Right common iliac artery stenting, 9 x 38 mm covered stent from the ostium of the right common iliac artery across stenosis Bilateral closure device (3) Ischemic cardiomyopathy: Chronic compensated left ventricular systolic congestive heart failure: Continue prior to hospital doses of carvedilol. Statin therapy on hold due to daptomycin therapy. -Reconsider statin therapy as antibiotic treatment is determined moving forward. Antiplatelet/antithrombotic therapy: Clopidogrel added due to iliac stenting. 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 Bridge therapy with heparin being avoided due to risk of bleeding complication from the bilateral groin access. Once INR is therapeutic, plan to discontinue aspirin and proceed with clopidogrel plus Coumadin. DVT prophylaxis: Subcutaneous Lovenox ordered pending therapeutic INR. Patient takes a relatively high dose of Coumadin at home, 10 mg daily. Pt had received IV vitamin K prior to toe amputation. Subjective Patient seen in the company of his family. He was in good spirits, and he is very pleased with the results of his peripheral vascular angiogram/intervention today. Telemetry reveals sinus rhythm with occasional PVCs. Review of Systems Review of Systems: All systems reviewed & are unremarkable except as noted in HPI & below Physical Exam Physical Exam: Temp Pulse Resp BP Pulse Ox 36.8 C 90 16 133/68 92 08/21/19 15:15 08/21/19 17:25 08/21/19 17:25 08/21/19 17:25 08/21/19 17:25 Constitutional: WD/WN, vitals as above Respiratory: normal respiratory effort, lungs clear to auscultation Cardiovascular: RRR, no murmur, no edema Patient had undergone femoral arterial access on both sides, the sites were clean dry and intact without hematoma at the time of my exam. Musculoskeletal: Right great toe dressing was also at the time of my assessment, revealing intact surgical wound with no drainage. Neurologic: patellar DTR's 2+ bilat, sensation intact Results & Data Vital Signs (Past 12 Hours) Vital Signs Temp Pulse Pulse Pulse Pulse Resp BP 08/21/19 17:25 90 16 133/68 08/21/19 16:15 87 17 133/66 08/21/19 15:15 36.8 C 89 18 159/68 H 08/21/19 14:20 87 08/21/19 14:15 36.8 C 83 19 132/76 08/21/19 13:45 36.9 C 82 19 143/69 H 08/21/19 13:18 83 08/21/19 13:15 36.6 C 89 18 127/75 08/21/19 13:00 36.6 C 87 20 149/75 H 08/21/19 12:39 36.9 C 88 19 144/65 H 08/21/19 12:18 83 16 142/86 H 08/21/19 12:05 83 16 134/72 08/21/19 07:55 86 18 139/76 Pulse Ox 08/21/19 17:25 92 08/21/19 16:15 95 08/21/19 15:15 95 08/21/19 14:20 08/21/19 14:15 95 08/21/19 13:45 96 08/21/19 13:18 08/21/19 13:15 94 08/21/19 13:00 95 08/21/19 12:39 94 08/21/19 12:18 98 08/21/19 12:05 98 08/21/19 07:55 93
[2019-08-21] MEDS ORDERED: WARFARIN SOD 10 MG TAB PO ONE (18:45)
[2019-08-21] MEDS ORDERED: INSULIN GLARGINE SOLOSTAR 100 UNITS/ML 3 ML PEN SC SCH (21:00)
[2019-08-22] MEDS ORDERED: INSULIN ASPART 100 UNITS/ML 3 ML PEN SC ONE (02:00)
[2019-08-22] MEDS: DAPTOmycin 300 MG in SYRINGE 0 ML IV SCH (02:01)
[2019-08-22 06:04] LABS: Hematocrit (blood only) 31.1 % (42-52); Hemoglobin 10.2 g/dL (14.0-18.0); Mean Corpuscular Hemoglobin 28.5 pg (25-34); Mean Corpuscular Hgb Conc 32.8 g/dL (32-36); Mean Corpuscular Volume 86.9 fL (80-100); Mean Platelet Volume 9.8 fL (7.4-10.4); Platelet Count 186 K/uL (130-400); RDW Coefficient of Variation 13.1 % (11.5-14.5); Red Blood Count 3.58 M/uL (4.7-6.1); White Blood Count 7.43 K/uL (4.8-10.8)
[2019-08-22 06:19] LABS: INR 1.5 (0.9-1.1); Prothrombin Time 14.7 Seconds (9.0-12.0)
[2019-08-22 06:27] LABS: BUN Creatinine Ratio 22.9 (10-20); Calcium 9.9 mg/dl (8.5-10.1); Creatinine Clr Calc Pharmacy 59.4 ml/min; Est GFR (African American) 70.5; Est GFR (Non-African American) 60.9; Potassium 4.1 mmol/L (3.5-5.1)
[2019-08-22] MEDS: INSULIN ASPART 100 UNITS/ML 3 ML PEN SC SCH ×4 (07:53→21:38)
[2019-08-22] MEDS: carvediloL 3.125 MG TAB PO SCH ×2 (08:27→17:12)
[2019-08-22] MEDS: ENOXAPARIN INJ 40 MG/0.4 ML SYR SQ SCH (08:28)
[2019-08-22] MEDS: ASPIRIN 81 MG ECTAB PO SCH (08:28)
[2019-08-22] MEDS: CLOPIDOGREL BISULFATE 75 MG TAB PO SCH (08:29)
[2019-08-22] MEDS: MULTIVITAMIN TAB PO SCH (08:29)
--- NOTE | 2019-08-22 11:39 | Vascular Medicine ProgressNote ---
Date of Service August 22, 2019 Assessment & Plan (1) PAD (peripheral artery disease): 2. RT great toe necrosis post amputation 3. Type 2 DM 4. 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 Chronic systolic heart failure 6. Prior tobacco abuse Post successful RT common iliac stenting and anterior tibial angioplasty yesterday. Post procedure labs stable. Access site ecchymosis but no significant complications Increased RT foot swelling/erythema today but now RT DP pulse palpable and RT lower extremity appears better perfused. -- On ASA/Clopidogrel until therapeutic on coumadin then will drop aspirin. -- Clopidogrel for 3 months procedure -- Follow-up arterial duplex in 3-4 weeks -- Continued antibiotics/wound care per primary team Subjective Feeling well. Wants to go home. RT and LT groin tender. Denies significant pain in RT foot but concerned about increased swelling. Review of Systems Review of Systems: All systems reviewed & are unremarkable except as noted in HPI & below Physical Exam Physical Exam: General: Comfortable, no acute distress Eyes: Sclerae anicteric, extraocular movements intact Lungs: Clear to auscultation bilaterally Cardiac: Regular rate and rhythm Abdomen: Soft Neuro: Nonfocal Psych: Alert orient x3, normal affect and mood Extremities/Vascular: -- Ecchymosis, no hematoma at RT femoral artery access site, pulse intact. LT femoral artery with minimal ecchymosis, pulse intact. -- 1+ popliteal on RT -- Palpable DP pulse on RT. normal RT cap refill. RT foot more swollen with erythema to mid foot. Surgical site intact Results & Data Vital Signs (Past 12 Hours) Vital Signs Temp Pulse Pulse Pulse Pulse Resp BP 08/22/19 11:20 98.4 F 81 18 08/22/19 08:26 84 17 08/22/19 08:00 86 08/22/19 07:14 98.4 F 87 17 08/22/19 04:35 98.2 F 100 H 18 100/64 08/22/19 00:11 97.7 F 88 86 87 16 08/22/19 00:00 91 H BP Pulse Ox 08/22/19 11:20 157/70 H 92 08/22/19 08:26 132/62 08/22/19 08:00 08/22/19 07:14 142/69 H 92 08/22/19 04:35 95 01/11/20 00:11 92/65 L 93 01/11/20 00:00 PG Care Time/CCT Total # of Minutes Spent Total Time Spent with Patient: Total time spent is greater than 50% in coordination of care (as documented) at patient's floor/unit and/or counseling patient:
[2019-08-22] MEDS ORDERED: IOVERSOL 100ml IV PRN (11:46)
[2019-08-22] MEDS ORDERED: PIPERACILL/TAZOBAC CONSULT ACTIVE PRN (12:21)
--- NOTE | 2019-08-22 12:39 | CT Scan Report ---
RIGHT FOOT CT WITH CONTRAST CT DOSE: 157.48 mGy.cm HISTORY: rt great toe amputation , swelling and pain TECHNIQUE: Multiaxial CT images of the right foot were performed and reformatted in the sagittal and coronal plane following the use of contrast. A dose lowering technique was utilized adhering to the principles of ALARA. COMPARISON: Right foot 08/17/2019. FINDINGS: Interval amputation of the right first toe. A few small foci of subcutaneous gas identified at the amputation site with soft tissue edema and skin thickening at this location. This favors resi dual postoperative change. A gas-forming infection is considered less likely given the recent postope rative change, however, not entirely excluded. No loculated fluid collections to suggest an abscess. Vascular calcifications are noted. There is dorsal subcutaneous edema throughout the foot. Sclerosis and small foci of subchondral cystic change at the head of the first metatarsal remains unchanged and likely represent chronic degenerative change. Otherwise, no erosive changes seen within the bones of the foot to suggest an osteomyelitis. No fracture or dislocation within the right foot. IMPRESSION: 1. Interval amputation of the right first toe. 2. A few small foci of subcutaneous gas identified at the amputation site with soft tissue edema and skin thickening at this location. This favors residual postoperative change. A gas-forming infection is considered less likely given the recent postoperative change, however, not entirely excluded. 3. No loculated fluid collections to suggest an abscess. 4. No acute fracture or dislocation within the right foot. ACT 112: Negative or not required by law. Electronically signed by: Hernan Mirza M.D. 08/22/2019 12:37 PM
[2019-08-22] MEDS ORDERED: PIPERACILLIN/TAZOBACTAM 3.375 GM in DEXTROSE 5% 100 ML IV ONE (12:45)
--- NOTE | 2019-08-22 13:16 | Pharmacy Report ---
Pharmacy Glycemic Short Note 2 - Date of Service August 22, 2019 - Glycemic Short BSG Results (Last 24 hours): 08/21/19 08/21/19 08/22/19 16:32 20:23 02:04 Glucose POC Glucose 135 H 154 H 171 H 08/22/19 08/22/19 08/22/19 05:48 07:21 11:19 Glucose 139 H POC Glucose 159 H 192 H OUTPATIENT ANTIDIABETIC REGIMEN: * Lantus 40 units daily * A1c = 9.4 ASSESSMENT: 08/22 * Patient is currently receiving an average of 43 units of insulin per day * 30 units of basal insulin * 13 units of prandial/correctional insulin - no carb intake documented for breakfast yesterday * BSGs ranging 135-192 over the past 24hrs * Heparin drip (mixed in dextrose) has been on hold since yesterday. Zosyn has been restarted for worsening redness/swelling at amputation site. * Anticipating insulin regimen will need increased for the next 24hrs d/t : * AM Fasting BSG = 159 and patient received 2 units of correctional overnight; therefore Basal insulin needs increased 08/21 * Patient admitted for diabetic foot infxn, PAD, necrotic R great toe * He is now s/p amputation of R great toe and IV abx continue * Patient is poorly controlled type 2 diabetic treated with basal insulin monotherapy. He reportedly trialed Novolog in the past but was transitioned to Lantus monotherapy * Fasting BSGs have been elevated, will continue to up-titrate basal insulin dose (have not uptitrated to out-pt dose yet due to use of Novolog w/ meals this admission) * Novolog CF and CR have been adjusted as well to allow for increased doses PLAN FOR INPATIENT GLYCEMIC CONTROL: * Basal insulin - increase * Lantus 35 units Q HS * Bolus insulin * NovoLog per scale ACHS or Q6hrs while NPO * Goal Range: Low 110 mg/dL - High 140 mg/dL * Correction Factor: 25 mg/dL/unit * Nutritional / Prandial insulin per carb ratio of 1 unit per 8 grams CHO consumed PLAN FOR DISCHARGE: * Would recommend adding meal-time insulin on discharge, a set dose would be easiest for him to manage if his meals are fairly consistent in carb content. At present I would estimate he will need 50+ units of insulin per day when tolerating a diet. * senior health educator has also recommend consideration of Metformin on discharge as an alternative, this could also be considered if no contraindications present at time of discharge. Perhaps this could be an option in the future, but given A1c > 9 and recent amputation, infxn and poor perfusion glycemic targets may be achieved more quickly with the basal/bolus SQ approach.
--- NOTE | 2019-08-22 13:40 | Cardiology Progress Note ---
Date of Service August 22, 2019 Assessment & Plan (1) Amputation of right great toe: 08/18/2019 (2) PAD (peripheral artery disease): Status post bilateral lower extremity angiogram 08/21/2019, bilateral femoral artery access Right anterior tibial artery angioplasty Right common iliac artery stenting, 9 x 38 mm covered stent from the ostium of the right common iliac artery across stenosis Bilateral closure device (3) Ischemic cardiomyopathy: Patient appears compensated/euvolemic. Continue current dose of carvedilol. Losartan restarted 08/22/2019. Restart Aldactone 25 mg daily. No indication for diuretic therapy currently. Statin therapy currently on hold due to treatment with daptomycin. Clopidogrel added due to peripheral stenting. 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 Patient requiring a relatively high dose of Coumadin as an outpatient, previously 10 mg daily. Repeat INR in a.m. Discontinue aspirin. Continue Coumadin plus clopidogrel long-term. Subjective Patient seen and examined at the bedside. Right foot discomfort controlled. Right lower extremity erythema and edema improved. Denies chest pain or shortness of breath. No dysrhythmias on telemetry. Tolerating medications. INR therapeutic today. Denies signs/symptoms of GI/ blood loss. No ort hopnea, PND, or palpitations. Review of Systems Review of Systems: All systems reviewed & are unremarkable except as noted in HPI & below Physical Exam Constitutional: well developed and well nourished; no acute distress Respiratory: normal respiratory effort, lungs clear to auscultation Cardiovascular: Rate/Rhythm: regular rate and regular rhythm Heart Sounds: normal S1 and normal S2; no murmur Vessels: radial pulses present; no JVD Extremities: + pedal edema (+ Right great toe amputation,+ erythema, 1+ edema) Results & Data Vital Signs (Past 12 Hours) Vital Signs Temp Pulse Pulse Pulse Resp BP BP 08/22/19 11:20 36.9 C 81 18 157/70 H 08/22/19 08:26 84 17 132/62 08/22/19 08:00 86 08/22/19 07:14 36.9 C 87 17 142/69 H 08/22/19 04:35 36.8 C 100 H 18 100/64 Pulse Ox 08/22/19 11:20 92 08/22/19 08:26 08/22/19 08:00 08/22/19 07:14 92 08/22/19 04:35 95
[2019-08-22] MEDS: LOSARTAN POTASSIUM 25 MG TAB PO SCH (14:29)
[2019-08-22] MEDS: PIPERACILLIN/TAZOBACTAM 3.375 GM in DEXTROSE 5% 100 ML IV SCH (17:09)
[2019-08-22] MEDS: WARFARIN SOD 10 MG TAB PO SCH (17:12)
--- NOTE | 2019-08-22 17:15 | Hospitalist Progress Note ---
Date of Service August 22, 2019 Assessment & Plan (1) Amputation of right great toe: presented with gangrenous necrotic rt great toe /diabetic toe infection underlying severe peripheral vascular disease orthopedics consulted -appreciate input from Dr Petersen s/p amputation of rt great toe on 08/18/2019 wound culture : MRSA , on daptomycin pt has AICD , would treat with IV Abx for 2-3 weeks to prevent bacterial seeding to AICD wiring complains of pain around rt foot area , increased erythema and swelling noted symptom appears to worsen today ordered for CT of rt foot with contrast : shows post operative change , no pus collection or abscess added IV zosyn for gram negative coverage ID eval requested low threshold for repeat blood cultures with any evidence of fever or elevted white count (2) PAD (peripheral artery disease): appreciate input from interventional cardiology s/p angioplasty of rt ant tibial artery and stent on common illiac artery on 08/21/2019 pt will cont with Aspirin and Plavix resume coumadin , apirin can be discontinued when INR theraputic need to continue with plavix for 3 months repeat lower ext arterial doppler in 3 months clinic follow up with interventional cardiology after discharge from hospital (3) CHF (congestive heart failure): chronic systolic heart failure secondary ischemic cardiomyopathy (EF less than 20% TTE, 2016) status post ICD, CAD as per records Equivocal volume status 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 Subjective complains of pain and swelling on right great toe amputation site evaluated at bedside erythema and swelling appear to worsened since yesterday no fever or chills , no active drainage noted from the amputation site orthopedic team updated ordered for CT of right foot to assess for infection or abscess Review of Systems Review of Systems: As per HPI, all 10 systems reviewed, all other ROS negative Musculoskeletal: right great toe amputation , pain and swelling at the amputation site Physical Exam Constitutional: WD/WN, vitals as above Eyes: PERRL, conjunctivae normal, anicteric sclerae Neck: trachea midline, no thyromegaly normal visual inspection Respiratory: normal respiratory effort, lungs clear to auscultation normal respiratory effort Auscultation: lungs clear to auscultation bilaterally Cardiovascular: RRR, no murmur, no edema Rate/Rhythm: regular rate and regular rhythm Gastrointestinal (Abdomen): normal bowel sounds, soft, nontender, no hepatos plenomegaly Musculoskeletal: s/p right great toe amputation , dried blood noted around the suture, area of redness , increased warmth and swelling on the right foot extending from base of rt great toe to middle of fore foot no flactuation noted, no active drainage + tendernss Neurologic: PERRL, EOMI, accommodation nl, no face palsy, no dysarthria moves all extremities Psychiatric: A+Ox3, euthymic affect Orientation: alert and oriented x 3 Results & Data Vital Signs (Past 12 Hours) Vital Signs Temp Pulse Pulse Pulse Pulse Resp BP 08/22/19 15:24 36.8 C 80 20 146/57 H 08/22/19 14:23 79 08/22/19 11:20 36.9 C 81 18 157/70 H 08/22/19 08:26 84 17 132/62 08/22/19 08:00 86 08/22/19 07:14 36.9 C 87 17 142/69 H Pulse Ox 08/22/19 15:24 95 08/22/19 14:23 08/22/19 11:20 92 08/22/19 08:26 08/22/19 08:00 08/22/19 07:14 92
[2019-08-22] MEDS: INSULIN GLARGINE SOLOSTAR 100 UNITS/ML 3 ML PEN SC SCH (21:39)
[2019-08-22] MEDS: OXYCODONE HCL IR 5 MG TAB (IMMEDIATE RELEASE) PO PRN (21:48)
[2019-08-23] MEDS: DAPTOmycin 300 MG in SYRINGE 0 ML IV SCH (02:37)
[2019-08-23] MEDS: ACETAMINOPHEN 325 MG TAB PO PRN (02:42)
[2019-08-23] MEDS: PIPERACILLIN/TAZOBACTAM 3.375 GM in DEXTROSE 5% 100 ML IV SCH (02:44)
[2019-08-23 06:34] LABS: Hematocrit (blood only) 29.9 % (42-52); Hemoglobin 9.7 g/dL (14.0-18.0); Mean Corpuscular Hemoglobin 28.3 pg (25-34); Mean Corpuscular Hgb Conc 32.4 g/dL (32-36); Mean Corpuscular Volume 87.2 fL (80-100); Mean Platelet Volume 9.9 fL (7.4-10.4); Platelet Count 194 K/uL (130-400); RDW Coefficient of Variation 13.2 % (11.5-14.5); RDW Standard Deviation 42.8 fL (36.4-46.3); Red Blood Count 3.43 M/uL (4.7-6.1); White Blood Count 7.65 K/uL (4.8-10.8)
[2019-08-23 06:49] LABS: INR 2.2 (0.9-1.1); Prothrombin Time 21.5 Seconds (9.0-12.0)
[2019-08-23 07:11] LABS: BUN Creatinine Ratio 21.7 (10-20); Calcium 10.4 mg/dl (8.5-10.1); Creatinine Clr Calc Pharmacy 60.9 ml/min; Est GFR (African American) 72.8; Est GFR (Non-African American) 62.8; Potassium 3.6 mmol/L (3.5-5.1)
--- NOTE | 2019-08-23 07:33 | Infectious Disease Consult ---
Date of Consultation August 23, 2019 Assessment & Plan (1) Cellulitis of foot, right: would continue dapto x 3 weeks post op. will need weekly cbc,cmp,esr, cpk. can stop zosyn from ID standpoint. ok for d/c when outpatient IV abx in place. (2) PAD (peripheral artery disease): History of Present Illness Attending Physician: Cynthia Green MD pt admitted with increased toe pain, black, necrotic toe. underwent amputation, pain controlled. known PAD, s/p angio. min foot pain currently. no f/c. 08/17 wound culture grew MRSA, blood cultures negative. Has AICD, IV abx requested due to cardiac device. he has been on dapto and zosyn and tolerating well. no abd pain, no n/v/d. no cp, sob, perdomo,cough. ESR 85, wbc 7. UA negative, creat 1.1. 08/22 ct foot post op changes, no abscess no osteo. pt states he is feeling b danitza, wants to go home today. Allergies Allergy/AdvReac Type Severity Reaction Status Date / Time No Known Allergies Allergy Unverified 08/17/19 21:21 Home Medications Home Medications Medication Instructions Recorded Confirmed Type aspirin [Aspirin Low Dose] 81 mg PO DAILY 08/17/19 08/17/19 History atorvastatin 80 mg PO DAILY 08/17/19 08/17/19 History carvedilol 3.125 mg PO BIDM 08/17/19 08/17/19 History cephalexin 500 mg PO Q8H 08/17/19 08/17/19 History furosemide 40 mg PO DAILY PRN 08/17/19 08/17/19 History insulin glargine [Lantus Solostar 40 unit SUBCUT HS 08/17/19 08/17/19 History U-100 Insulin] losartan 25 mg PO DAILY 08/17/19 08/17/19 History oxycodone 5 mg PO Q6H PRN 08/17/19 08/17/19 History spironolactone 25 mg PO DAILY 08/17/19 08/17/19 History warfarin 10 mg PO DAILY 08/17/19 08/17/19 History Patient History Medical History Anemia CAD (coronary artery disease) CHF (congestive heart failure) Diabetes Ischemic cardiomyopathy Left ventricular aneurysm Necrosis of toe (Resolved) Renal failure (ARF), acute on chronic Surgical History History of open heart surgery History of open heart surgery S/P ICD (internal cardiac defibrillator) procedure Social History Preferred Language: Marshallese Communication Ability: Effective Beliefs That Will Affect Care: None Current Living Situation: Spouse Other Information That Helps Us Care for You: No Feels Safe at Home: Yes Safety Concerns: Feels Safe At This Time Smoking Status: Former smoker Do You Dip or Chew Tobacco: No ; Hx Alcohol Use: No Hx Substance Use: No Review of Systems Review of Systems: All systems reviewed & are unremarkable except as noted in HPI & below Physical Exam Constitutional: WD/WN, vitals as above Eyes: PERRL, conjunctivae normal, anicteric sclerae ENMT: external ear and nose normal, oropharynx normal Neck: normal visual inspection Respiratory: normal respiratory effort, lungs clear to auscultation Cardiovascular: RRR, no murmur, no edema Gastrointestinal (Abdomen): normal bowel sounds, soft, nontender, no hepatosplenomegaly Musculoskeletal: no cyanosis or clubbing, extremities motor strength 5/5 Skin: no rashes, warm and dry + wound (right foot sutures intact, tender, no warmth, no drainage) Psychiatric: A+Ox3, euthymic affect Results & Data Vital Signs (Past 12 Hours) Vital Signs Temp Pulse Pulse Pulse Resp BP Pulse Ox 08/23/19 07:20 36.4 C L 70 20 137/60 93 08/23/19 04:00 37.3 C 71 136/60 93 08/23/19 00:00 37.5 C 85 84 128/65 93 Laboratory Results Microbiology 08/17/19 19:00 Blood Aerobic Blood Culture - Final No growth in Aerobic bottle after 5 days. 08/17/19 19:00 Blood Anaerobic Blood Culture - Final No growth in Anaerobic bottle after 5 days. 08/17/19 18:55 Blood Aerobic Blood Culture - Final No growth in Aerobic bottle after 5 days. 08/17/19 18:55 Blood Anaerobic Blood Culture - Final No growth in Anaerobic bottle after 5 days. 08/17/19 17:07 Toe,Right Great Gram Stain - Final 08/17/19 17:07 Toe,Right Great Aerobic and Anaerobic Culture - Preliminary Staph aureus MRSA PG Care Time/CCT Total # of Minutes Spent Total Time Spent with Patient: Total time spent is greater than 50% in coordination of care (as documented) at patient's floor/unit and/or counseling patient:
[2019-08-23] MEDS: CLOPIDOGREL BISULFATE 75 MG TAB PO SCH (08:17)
[2019-08-23] MEDS: carvediloL 3.125 MG TAB PO SCH ×2 (08:17→15:47)
--- NOTE | 2019-08-23 08:17 | Orthopedic Progress Note ---
Date of Service August 23, 2019 Assessment & Plan (1) Amputation of right great toe: Overall things look okay with his toe amputation. There is a little bit of black eschar and maceration around the wound site but this is typical for what I say after an amputation. I appreciate the vascular team opening up his lower extremity vessels to increase of blood flow. This should help him out a lot. Infectious disease has already seen him and he will continue daptomycin for coverage of the MRSA infection. I reviewed the CT scan of his foot and it was negative for any abscesses or interval changes. He can be weightbearing as tolerated in a hard soled shoe. I want him to keep the wound open to air as much as possible. He is orthopedically stable for discharge when medically ready. He can follow-up in my office in 2 weeks for suture removal. Office phone number is [phone] Present on Admission?: No Subjective Miguel Ángel was seen and examined at bedside this morning. Overall he is doing fairly well. He is requesting to be sent home. He is having a little bit of cellulitis around his foot. He had a CT scan with contrast of his foot ordered yesterday by the medicine team. He has been up and ambulating in the [facility] shoe. Physical Exam Musculoskeletal: Physical examination of the right foot, the wound is open to air. There is some maceration and some black eschar around the wound site. There is a little bit of erythema around the area that is marked out with a pen. There is minimal swelling. He does have some tenderness palpation around the area. Results & Data Vital Signs (Past 12 Hours) Vital Signs Temp Pulse Pulse Pulse Resp BP Pulse Ox 08/23/19 07:20 36.4 C L 70 20 137/60 93 08/23/19 04:00 37.3 C 71 136/60 93 08/23/19 00:00 37.5 C 85 84 128/65 93 PG Care Time/CCT Total # of Minutes Spent Total Time Spent with Patient: Total time spent is greater than 50% in co ordination of care (as documented) at patient's floor/unit and/or counseling patient: Coding Level of Care Code None Diagnoses Amputation of right great toe S98.111A
[2019-08-23] MEDS: ASPIRIN 81 MG ECTAB PO SCH (08:18)
[2019-08-23] MEDS: ENOXAPARIN INJ 40 MG/0.4 ML SYR SQ SCH (08:18)
[2019-08-23] MEDS: MULTIVITAMIN TAB PO SCH (08:18)
[2019-08-23] MEDS: INSULIN ASPART 100 UNITS/ML 3 ML PEN SC SCH ×4 (08:21→20:38)
[2019-08-23] MEDS: LOSARTAN POTASSIUM 25 MG TAB PO SCH (08:37)
--- NOTE | 2019-08-23 09:16 | Pharmacy Report ---
Pharmacy Glycemic Short Note 2 - Date of Service August 23, 2019 - Glycemic Short BSG Results (Last 24 hours): 08/22/19 08/22/19 08/22/19 11:19 16:23 20:14 Glucose POC Glucose 192 H 146 H 205 H 08/23/19 08/23/19 05:55 06:58 Glucose 139 H POC Glucose 138 H OUTPATIENT ANTIDIABETIC REGIMEN: * Lantus 40 units daily * A1c = 9.4 % on 08/17/19 ASSESSMENT: 08/23 * Patient is currently receiving an average of 60 units of insulin per day * 35 units of basal insulin - just increased last night * 27 units of prandial/correctional insulin * BSGs ranging 138-205 over the past 24hrs * Risk factors for insulin resistance are constant over the past 24hrs * Infection is being adequately treated/Pt status improving * Anticipate no changes needed to insulin regimen for the next 24 hours 08/22 * Patient is currently receiving an average of 43 units of insulin per day * 30 units of basal insulin * 13 units of prandial/correctional insulin - no carb intake documented for breakfast yesterday * BSGs ranging 135-192 over the past 24hrs * Heparin drip (mixed in dextrose) has been on hold since yesterday. Zosyn has been restarted for worsening redness/swelling at amputation site. * Anticipating insulin regimen will need increased for the next 24hrs d/t : * AM Fasting BSG = 159 and patient received 2 units of correctional overnight; therefore Basal insulin needs increased 08/21 * Patient admitted for diabetic foot infxn, PAD, necrotic R great toe * He is now s/p amputation of R great toe and IV abx continue * Patient is poorly controlled type 2 diabetic treated with basal insulin monotherapy. He reportedly trialed Novolog in the past but was transitioned to Lantus monotherapy * Fasting BSGs have been elevated, will continue to up-titrate basal insulin dose (have not uptitrated to out-pt dose yet due to use of Novolog w/ meals this admission) * Novolog CF and CR have been adjusted as well to allow for increased doses PLAN FOR INPATIENT GLYCEMIC CONTROL: * Basal insulin - no change * Lantus 35 units Q HS * Bolus insulin - no change * NovoLog per scale ACHS or Q6hrs while NPO * Goal Range: Low 110 mg/dL - High 140 mg/dL * Correction Factor: 25 mg/dL/unit * Nutritional / Prandial insulin per carb ratio of 1 unit per 8 grams CHO consumed PLAN FOR DISCHARGE: * Would recommend adding meal-time insulin on discharge, a set dose would be easiest for him to manage if his meals are fairly consistent in carb content. At present I would estimate he will need 50+ units of insulin per day when tolerating a diet. * clinical systems educator has also recommend consideration of Metformin on discharge as an alternative, this could also be considered if no contraindications present at time of discharge. Perhaps this could be an option in the future, but given A1c > 9 and recent amputation, infxn and poor perfusion glycemic targets may be achieved more quickly with the basal/bolus SQ approach.
--- NOTE | 2019-08-23 11:25 | Hospitalist Progress Note ---
Date of Service August 23, 2019 Assessment & Plan (1) Amputation of right great toe: presented with gangrenous necrotic rt great toe /diabetic toe infection underlying severe peripheral vascular disease s/p amputation of rt great toe on 08/18/[address] Petersen wound culture : MRSA , on daptomycin pt has AICD , would treat with IV Abx for 3 weeks to prevent bacterial seeding to AICD wiring Appreciate input from ID, recommends the same Had pain around rt foot area , increased erythema and swelling noted-which has improved today CT of right foot ordered with contrast, showed no evidence of abscess, postoperative changes Appreciate input from orthopedics, recommends continue IV daptomycin for MRSA infection, patient can be weightbearing as tolerated on right lower extremity, Wound should be kept open for increased healing Appreciate input from infectious disease: Cellulitis is of right foot, status post right gangrenous toe amputation,: Wound culture positive for MRSA, Recommends IV Dapto for 3 weeks postop Ordered for PICC line/consent obtained from patient Patient will need weekly CBC, CMP, ESR, CPK check Zosyn discontinued Continue to hold statin for the next 3 weeks while patient is getting IV daptomycin (2) PAD (peripheral artery disease): appreciate input from interventional cardiology Status post bilateral lower extremity angiogram 08/21/2019, bilateral femoral artery access Right anterior tibial artery angioplasty Right common iliac artery stenting, 9 x 38 mm covered stent from the ostium of the right common iliac artery across stenosis pt will cont with Aspirin and Plavix /Coumadin resumed We will discontinue aspirin as INR therapeutic at 2.2 today need to continue with plavix for 3 months Patient will repeat lower ext arterial doppler in 3 months to assess patency of iliac artery stent clinic follow up with interventional cardiology Dr. Santo Ken after discharge from hospital (3) CHF (congestive heart failure): chronic systolic heart failure secondary ischemic cardiomyopathy (EF less than 20% TTE, 2016) status post ICD, CAD as per records Volume status stable LV aneurysm status post surgery on Coumadin, On Coumadin, INR therapeutic DM2, insulin requiring, suboptimal control as of recent outpatient hemoglobin A1c of 8.17 April 2019 cont insulin SSI chronic anemia monitor H&H Borderline Hyperkalemia Resolved, potassium within normal limit Losartan resumed yesterday, Patient started back on his home medication of aldosterone 25 mg daily Will need repeat BMP check in 1 week after discharge CODE STATUS: Full code DVT prophylaxis: On Coumadin Disposition: Plan to discharge home tomorrow, will need arrangement for home IV antibiotic therapy for next 3 weeks Patient is showing evidence of significant deconditioning, gait and balance issues on attempt to getting out of bed Ordered for PT OT evaluation to assess Lives at home with , was independent in ADLs prior to admission Plan of care updated to , is voicing concern regarding patient's balance Has 20 steps to climb to go to his room We may need to consider rehab if patient is unable to ambulate safely Social service consult for discharge planning . Subjective Right foot pain has improved markedly, minimum swelling, erythema has improved, no fever or chills Denies of any chest pain or shortness of breath no cough Eager to be discharged home Review of Systems Review of Systems: As per HPI, all 10 systems reviewed, all other ROS negative Musculoskeletal: right great toe amputation , provement of erythema and swelling noted Physical Exam Constitutional: WD/WN, vitals as above Eyes: PERRL, conjunctivae normal, anicteric sclerae ENMT: Mallampati Class: III Neck: trachea midline, no thyromegaly normal visual inspection Respiratory: normal respiratory effort, lungs clear to auscultation normal respiratory effort Auscultation: lungs clear to auscultation bilaterally Cardiovascular: RRR, no murmur, no edema Rate/Rhythm: regular rate and regular rhythm Heart Sounds: + murmur Gastrointestinal (Abdomen): normal bowel sounds, soft, nontender, no hepatosplenomegaly Musculoskeletal: Spine: normal cervical ROM and no pain with cervical ROM Neurologic: PERRL, EOMI, accommodation nl, no face palsy, no dysarthria moves all extremities Psychiatric: A+Ox3, euthymic affect Orientation: alert and oriented x 3 Results & Data Vital Signs (Past 12 Hours) Vital Signs Temp Pulse Pulse Pulse Resp BP Pulse Ox 08/23/19 07:20 36.4 C L 70 20 137/60 93 08/23/19 04:00 37.3 C 71 136/60 93 08/23/19 00:00 37.5 C 85 84 128/65 93
[2019-08-23] MEDS: OXYCODONE HCL IR 5 MG TAB (IMMEDIATE RELEASE) PO PRN ×3 (11:40→21:17)
[2019-08-23] MEDS: SPIRONOLACTONE 25 MG TAB PO SCH (11:40)
[2019-08-23] MEDS: WARFARIN SOD 10 MG TAB PO SCH (15:46)
[2019-08-23] MEDS: INSULIN GLARGINE SOLOSTAR 100 UNITS/ML 3 ML PEN SC SCH (20:37)
[2019-08-24] MEDS: DAPTOmycin 300 MG in SYRINGE 0 ML IV SCH (03:12)
[2019-08-24] MEDS: OXYCODONE HCL IR 5 MG TAB (IMMEDIATE RELEASE) PO PRN (06:17)
[2019-08-24 06:42] LABS: INR 4.1 (0.9-1.1); Prothrombin Time 37.6 Seconds (9.0-12.0)
[2019-08-24 07:00] LABS: Est GFR (African American) 96.6; Est GFR (Non-African American) 83.3
[2019-08-24] MEDS: INSULIN ASPART 100 UNITS/ML 3 ML PEN SC SCH ×2 (09:17→13:04)
[2019-08-24] MEDS: carvediloL 3.125 MG TAB PO SCH (09:17)
[2019-08-24] MEDS: MULTIVITAMIN TAB PO SCH (09:18)
[2019-08-24] MEDS: SPIRONOLACTONE 25 MG TAB PO SCH (09:18)
[2019-08-24] MEDS: LOSARTAN POTASSIUM 25 MG TAB PO SCH (09:18)
[2019-08-24] MEDS: CLOPIDOGREL BISULFATE 75 MG TAB PO SCH (09:18)
--- NOTE | 2019-08-24 09:54 | Pharmacy Report ---
Pharmacy Glycemic Short Note 2 - Date of Service August 24, 2019 - Glycemic Short BSG Results (Last 24 hours): 08/23/19 08/23/19 08/23/19 11:20 16:16 20:31 POC Glucose 134 H 179 H 164 H OUTPATIENT ANTIDIABETIC REGIMEN: * Lantus 40 units daily * A1c = 9.4 % on 08/17/19 ASSESSMENT: * Patient received 51 units of insulin yesterday. Basal heavy. BSGs over the previous 24hrs: [phone]/dL * Risk factors for insulin resistance are constant over the past 24hrs * Infection is being adequately treated/Pt status improving * Anticipate no changes needed to insulin regimen for the next 24 hours PLAN FOR INPATIENT GLYCEMIC CONTROL: * Basal insulin - no change * Lantus 35 units Q HS * Bolus insulin - no change * NovoLog per scale ACHS or Q6hrs while NPO * Goal Range: Low 110 mg/dL - High 140 mg/dL * Correction Factor: 25 mg/dL/unit * Nutritional / Prandial insulin per carb ratio of 1 unit per 8 grams CHO consumed PLAN FOR DISCHARGE: * Would recommend adding meal-time insulin on discharge, a set dose would be easiest for him to manage if his meals are fairly consistent in carb content. At present I would estimate he will need 50+ units of insulin per day when tolerating a diet. * conservation educator has also recommend consideration of Metformin on discharge as an alternative, this could also be considered if no contraindications present at time of discharge. Perhaps this could be an option in the future, but given A1c > 9 and recent amputation, infxn and poor perfusion glycemic targets may be achieved more quickly with the basal/bolus SQ approach.
--- NOTE | 2019-08-24 14:27 | Hospitalist Progress Note ---
Date of Service August 24, 2019 Assessment & Plan (1) Amputation of right great toe: presented with gangrenous necrotic rt great toe /diabetic toe infection underlying severe peripheral vascular disease s/p amputation of rt great toe on 08/18/[address] Petersen wound culture : MRSA , on daptomycin patient already got 1 week of daptomycin treatment pt has AICD , would treat with IV Abx for 3 weeks to prevent bacterial seeding to AICD wiring -needs 2 more weeks of treatment Appreciate input from ID, recommends the same Appreciate input from orthopedics, recommends continue IV daptomycin for MRSA infection, patient can be weightbearing as tolerated on right lower extremity, Wound should be kept open for increased healing Follow-up with orthopedics in 2 weeks in clinic with Dr. Petersen for suture removal Patient is discharged home today with 2 weeks of IV daptomycin Patient will need weekly CBC, CMP, ESR, CPK check Continue to hold statin for the next 2 weeks while patient is getting IV daptomycin His present at bedside, updated regarding the plan (2) PAD (peripheral artery disease): appreciate input from interventional cardiology Status post bilateral lower extremity angiogram 08/21/2019, bilateral femoral artery access Right anterior tibial artery angioplasty Right common iliac artery stenting, 9 x 38 mm covered stent from the ostium of the right common iliac artery across stenosis Aspirin discontinued Patient will be discharged with Coumadin and Plavix only, goal INR between 23 INR 4.4 today patient is asked to not take Coumadin today and tomorrow, resume with regular dose on Saturday Patient will need PT/INR check as per coagulation clinic Patient will repeat lower ext arterial doppler in 3 months to assess patency of iliac artery stent clinic follow up with interventional cardiology Dr. Santo Ken after discharge from hospital (3) CHF (congestive heart failure): chronic systolic heart failure secondary ischemic cardiomyopathy (EF less than 20% TTE, 2016) status post ICD, CAD as per records Volume status stable LV aneurysm status post surgery on Coumadin, On Coumadin, INR therapeutic DM2, insulin requiring, suboptimal control as of recent outpatient hemoglobin A1c of 8.17 April 2019 Was treated with insulin sliding scale while in hospital chronic anemia monitor H&H Borderline Hyperkalemia Resolved, potassium within normal limit Losartan and Aldactone resumed Will need repeat BMP check in 1 week after discharge CODE STATUS: Full code DVT prophylaxis: On Coumadin Disposition: Stable to be discharged home today arrangement meds for IV antibiotic for 2 weeks, Patient will need home health/ home PT Social service updated Subjective No complaint of pain or discomfort on right foot amputation site, Swelling and erythema has resolved markedly Denies of any shortness of breath no discomfort no fever or chills Very eager to be discharged home Had physical therapy evaluation today, recommend patient can return home with home physical therapy Patient already has a midline placed home antibiotic therapy with IV daptomycin arranged, Stable to be discharged home today with home health and home physical therapy Review of Systems Review of Systems: As per HPI, all 10 systems reviewed, all other ROS negative Musculoskeletal: right great toe amputation , Physical Exam Constitutional: WD/WN, vitals as above Eyes: PERRL, conjunctivae normal, anicteric sclerae ENMT: Mallampati Class: III Neck: trachea midline, no thyromegaly normal visual inspection Respiratory: normal respiratory effort, lungs clear to auscultation normal respiratory effort Auscultation: lungs clear to auscultation bilaterally Cardiovascular: RRR, no murmur, no edema Rate/Rhythm: regular rate and regular rhythm Heart Sounds: + murmur Gastrointestinal (Abdomen): normal bowel sounds, soft, nontender, no hepatosplenomegaly Musculoskeletal: Spine: normal cervical ROM and no pain with cervical ROM Neurologic: PERRL, EOMI, accommodation nl, no face palsy, no dysarthria moves all extremities Psychiatric: A+Ox3, euthymic affect Orientation: alert and oriented x 3 Results & Data Vital Signs (Past 12 Hours) Vital Signs Temp Pulse Pulse Resp BP Pulse Ox 08/24/19 09:14 83 138/71 08/24/19 07:26 36.8 C 79 16 126/55 L 94
--- NOTE | 2019-08-24 14:51 | Discharge Summary ---
Date of Service August 24, 2019 Admission HPI Per Admitting Provider History obtained from patient, family, and records. Medical history significant for chronic systolic heart failure secondary ischemic cardiomyopathy (EF less than 20% TTE, 2016) status post ICD, LV aneurysm status post surgery on Coumadin, valvular heart disease (mild MR/ as per records), CAD/PVD as per records, DM2, insulin requiring, CRI (baseline creatinine 1.3-1.4), chronic anemia (baseline hemoglobin of 13), past tobacco abuse. 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 Patient confined for a few days at [facility]. Patient discharged on antibiotic course which did not really help swelling as per patient. 2 weeks ago, patient noted left great toe turning black. With increased pain. No fever, no chills. No purulent drainage as per patient. Patient denies chest pain, S OB, unusual fluid retention. Patient directed to ER by PCP when called office today. 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 Principal Diagnosis Right foot gangrenous toe, diabetic toe wound, status post amputation Discharge Exam Constitutional WD/WN, vitals as above Eyes PERRL, conjunctivae normal, anicteric sclerae ENMT Mallampati Class: III Neck trachea midline, no thyromegaly normal visual inspection Respiratory normal respiratory effort, lungs clear to auscultation normal respiratory effort Auscultation: lungs clear to auscultation bilaterally Cardiovascular RRR, no murmur, no edema Rate/Rhythm: regular rate and regular rhythm Heart Sounds: + murmur Gastrointestinal (Abdomen) normal bowel sounds, soft, nontender, no hepatosplenomegaly Musculoskeletal Spine: normal cervical ROM and no pain with cervical ROM Neurologic PERRL, EOMI, accommodation nl, no face palsy, no dysarthria moves all extremities Psychiatric A+Ox3, euthymic affect Orientation: alert and oriented x 3 Discharge Data Allergies Allergy/AdvReac Type Severity Reaction Status Date / Time No Known Allergies Allergy Unverified 08/17/19 21:21 Consultations 08/17/19 20:20 ED Decision to Admit Stat 08/18/19 00:08 Consult Cardiology Routine Consult Case Management - Discharge Planning Routine Consult Orthopedic Surgery Routine 08/20/19 09:16 Consult Cardiology Routine 08/22/19 17:13 Consult Infectious Diseases Routine Procedures Performed Operation Date: 08/18/19 10:10 Actual Procedures p Right Great Toe Amputation(Right) - Savage Petersen DO Operation Date: 08/21/19 08:00 Actual Procedures s Iliac Stent Balloon - Burton Ken MD s IVUS Non Cors - Burton Ken MD s SC Select Cath ALEP 3rd Order - MD melanie Charles Placement Art Occlusive Device - MD melanie Charles Ultrasound Vascular Access - Burton Ken MD s SC IVUS Noncoronary Initial - MD melanie Charles Tibial Peroneal Balloon - Burton Ken MD p Angio Extremity Bilateral - Burton Ken MD Ordered Studies 08/17/19 19:20 US arterial duplex LE RT Stat 08/19/19 17:08 US aorta duplex Routine 08/21/19 06:38 CL Cath Imgs for PACS use only Routine 08/22/19 11:09 CT foot RT w con Stat Hospital Course (1) Amputation of right great toe: presented with gangrenous necrotic rt great toe /diabetic toe infection underlying severe peripheral vascular disease s/p amputation of rt great toe on 08/18/[address] Petersen wound culture : MRSA , on daptomycin patient already got 1 week of daptomycin treatment pt has AICD , would treat with IV Abx for 3 weeks to prevent bacterial seeding to AICD wiring -needs 2 more weeks of treatment Appreciate input from ID, recommends the same Appreciate input from orthopedics, recommends continue IV daptomycin for MRSA infection, patient can be weightbearing as tolerated on right lower extremity, Wound should be kept open for increased healing Follow-up with orthopedics in 2 weeks in clinic with Dr. Petersen for suture removal Patient is discharged home today with 2 weeks of IV daptomycin Patient will need weekly CBC, CMP, ESR, CPK check Continue to hold statin for the next 2 weeks while patient is getting IV daptomycin His present at bedside, updated regarding the plan (2) PAD (peripheral artery disease): appreciate input from interventional cardiology Status post bilateral lower extremity angiogram 08/21/2019, bilateral femoral artery access Right anterior tibial artery angioplasty Right common iliac artery stenting, 9 x 38 mm covered stent from the ostium of the right common iliac artery across stenosis Aspirin discontinued Patient will be discharged with Coumadin and Plavix only, goal INR between 23 INR 4.4 today patient is asked to not take Coumadin today and tomorrow, resume with regular dose on Saturday Patient will need PT/INR check as per coagulation clinic Patient will repeat lower ext arterial doppler in 3 months to assess patency of iliac artery stent clinic follow up with interventional cardiology Dr. Santo Ken after discharge from hospital (3) CHF (congestive heart failure): chronic systolic heart failure secondary ischemic cardiomyopathy (EF less than 20% TTE, 2016) status post ICD, CAD as per records Volume status stable LV aneurysm status post surgery on Coumadin, On Coumadin, INR therapeutic DM2, insulin requiring, suboptimal control as of recent outpatient hemoglobin A1c of 8.17 April 2019 Was treated with insulin sliding scale while in hospital chronic anemia monitor H&H Borderline Hyperkalemia Resolved, potassium within normal limit Losartan and Aldactone resumed Will need repeat BMP check in 1 week after discharge CODE STATUS: Full code DVT prophylaxis: On Coumadin Disposition: Stable to be discharged home today arrangement meds for IV antibiotic for 2 weeks, Patient will need home health/ home PT Social service updated Total Time Total Time Spent Total Time Spent (In Minutes): approx 45 mins Total Time Includes: Examination of the Patient, Discharge Planning and Medic ation Reconciliation Discharge Plan Discharge Items Patient Disposition: Home - Home Health Services Reason For Visit: CHF, DIABETIC FOOT INFECTION Discharge Diagnosis: Right foot gangrenous toe, diabetic toe wound, status post amputation Condition on Discharge: Good Activity: As commented below Activity Comment: RT LOWER EXTREMITY TOLERATED Non-emergency contact: Primary Care Provider Call non-emergency contact if: you have any medication questions Follow-up/Referrals: Alka Martin DO [Physician] - (Infectious disease follow-up with Dr. Alka Martin in 3 weeks) Burton Ken MD [Physician] - (Follow-up with Dr. Ken in 3-4 weeks) Savage Petersen DO [Physician] - (Follow-up with orthopedics in 2 weeks for suture removal) Mikey Segura DO [Primary Care Provider] - 08/31/19 1:25 pm Diet: Carb Consistent or DM2 and Heart Healthy Addtl Attending Provider Instructions: Do not take statin for next 2 weeks while getting IV daptomycin Interventional cardiology/vascular follow-up with Dr. Ken in 3-4 weeks Do not take Aspirin , continue to take Plavix and Coumadin PT/INR check as per coumadin clinic your INR 4.2 today do not take Coumadin for today and tomorrow then resume 10 mg daily from 08/26/19 Orthopedics: Keep wound open to air as much as possible. Keep wound clean and dry. Weightbearing as tolerated in a hard sole shoe Follow-up with Dr. Petersen in 2 weeks. Office phone number is [phone] Pending Studies at Discharge: Yes Studies:: Lab work:weekly CBC, CMP, ESR, CPK check-for next 2 weeks while on IV daptomycin Right lower extremity arterial Doppler in 3 months Stand-Alone Forms: [employer], Smoking Cessation Medications and DC Order Prescriptions: New clopidogrel 75 mg Tablet 75 mg PO QAM 30 Days Qty: 30 RF: 3 daptomycin 350 mg recon soln 300 mg IV DAILY 14 Days Qty: 14 RF: 0 Continued carvedilol 3.125 mg Tablet 3.125 mg PO BIDM RF: 0 losartan 25 mg tablet 25 mg PO DAILY RF: 0 furosemide 40 mg tablet 40 mg PO DAILY PRN (Reason: WEIGHT GAIN/FLUID RETENTION) RF: 0 spironolactone 25 mg tablet 25 mg PO DAILY RF: 0 Lantus Solostar U-100 Insulin 100 unit/mL (3 mL) insulin pen 40 unit SUBCUT HS RF: 0 warfarin 5 mg tablet 10 mg PO DAILY RF: 0 oxycodone 5 mg tablet 5 mg PO Q6H PRN (Reason: Pain) RF: 0 Discontinued atorvastatin 80 mg tablet 80 mg PO DAILY RF: 0 cephalexin 500 mg capsule 500 mg PO Q8H RF: 0 aspirin [Aspirin Low Dose] 81 mg Tablet,Delayed Release (Dr/Ec) 81 mg PO DAILY RF: 0 Discharge Orders: Discharge Order (Routine); Ordered 08/24/19 Ordered By: Cynthia Enrique/Other Patient Handouts: Coumadin, Hyperglycemia, Hypoglycemia, Diabetes Type 2 Coping, Diabetes Healthy Meals Admission Data Admit Date/Time: 08/17/19 22:16 Attending Provider: Cynthia Green Admit Provider: Surya Sanderson Primary Care Provider: Mikey Segura V. Other Providers: Surya Sanderson ; Jose Angel Perdomo ; Savage Petersen ; Burton Ken ; Alka Martin Other Interventions: Discharge Summary Assessment (RN) Last Done: 08/24/19 14:15
== END 2019-08-24 15:50 | disposition home health service (06) | DRG 253 ==
LOC: ED 17:09 → EDBD 17:09 → SUATTDRO 22:16 → 2S 22:16 → 1E 08-20 09:00 → 2E 08-21 08:44 → 3W 08-23 18:17
PROC: CLB.AEB (2019-08-21 08:00)

== ENCOUNTER 2019-10-15 12:26 | Inpatient (IN) ==
[2019-10-15 13:11] LABS: Basophils # (auto) 0.04 K/uL (0-0.2); Basophils % (auto) 0.8 %; Eosinophils # (auto) 0.31 K/uL (0-0.5); Eosinophils % (auto) 5.9 %; Hemoglobin 12.6 g/dL (14.0-18.0); Immature Granulocytes # (auto) 0.01 K/uL (0.00-0.02); Immature Granulocytes % (auto) 0.2 %; Lymphocytes # (auto) 1.21 K/uL (1.2-3.4); Mean Corpuscular Hemoglobin 28.3 pg (25-34); Mean Corpuscular Hgb Conc 32.3 g/dL (32-36); Mean Corpuscular Volume 87.6 fL (80-100); Mean Platelet Volume 10.3 fL (7.4-10.4); Monocytes # (auto) 0.26 K/uL (0.11-0.59); Monocytes % (auto) 4.9 %; Neutrophils # (auto) 3.44 K/uL (1.4-6.5); Neutrophils % (auto) 65.2 %; Platelet Count 184 K/uL (130-400); RDW Coefficient of Variation 14.3 % (11.5-14.5); RDW Standard Deviation 45.8 fL (36.4-46.3); Red Blood Count 4.45 M/uL (4.7-6.1); White Blood Count 5.27 K/uL (4.8-10.8)
--- NOTE | 2019-10-15 13:13 | Emergency Department Note ---
Entered by Hema Hair acting as a scribe for Bib Walsh DO History of Present Illness General Chief complaint: Foot Injury/Pain Stated complaint: RIGHT FOOT BIG TOE INFECTED - POST OP Time Seen by Provider: 10/15/19 12:47 Source: patient Limitations: no limitations History of Present Illness Location: right (foot) Pain Consistency: + constant Quality: + constant Associated symptoms: + denies other symptoms (trouble breathing); no chest pain Treatments prior to arrival: other (doxycyline) The patient is a 74 year old male who presents to the Emergency Room with complaints of constant right foot pain. The patient states Dr. Petersen removed his right great toe on August 18, about 2 months ago. He states he was getting his foot checked, and was told to go to the ED. He states he has been having puss come out of the area. The patient denies having chest pain, trouble breathing, and smoking. He states he has been taking doxycycline. He notes he takes blood thinners. Home Medications Home Medications Medication Instructions Recorded Confirmed Type Lantus Solostar U-100 Insulin 40 unit SUBCUT HS 08/17/19 10/15/19 History carvedilol 3.125 mg PO BIDM 08/17/19 10/15/19 History furosemide 40 mg PO QAM PRN 08/17/19 10/15/19 History losartan 25 mg PO QAM 08/17/19 10/15/19 History spironolactone 25 mg PO QAM 08/17/19 10/15/19 History warfarin 10 mg PO PM 08/17/19 10/15/19 History clopidogrel 75 mg PO QAM 30 Days #30 tab 08/23/19 10/15/19 Rx doxycycline monohydrate 100 mg 100 mg PO BID #60 cap 10/05/19 10/15/19 Rx capsule Allergies Allergy/AdvReac Type Severity Reaction Status Date / Time No Known Drug Allergies Allergy Verified 10/15/19 13:24 Past Med/Surg History Medical History (Updated 10/15/19 @ 16:53 by Bib Walsh DO) Amputation of right great toe Anemia CAD (coronary artery disease) CHF (congestive heart failure) CKD (chronic kidney disease) stage 3, GFR 30-59 ml/min Diabetes Ischemic cardiomyopathy Left ventricular aneurysm Necrosis of toe (Resolved) PAD (peripheral artery disease) Surgical History (Updated 10/15/19 @ 16:04 by Neena Lockett PA-C) History of amputation of great toe R great toe amp by Dr. Petersen 08/18/19 History of angioplasty of peripheral vessel 08/21/2019 Summary: 1. Right lower [id number] to 90% heavily calcified proximal common iliac stenosis, mild to moderate diffuse SFA/popliteal disease, subtotally occluded anterior tibial artery, occluded posterior tibial artery. 2. Left lower extremitycalcified, mild diffuse iliac/SOLE CUTTER disease 3. Successful right common iliac artery stenting with 2 overlapping covered stents (Lifestream 9.0 x 38, 9.0 x 38). 4. Successful angioplasty of right anterior tibial artery with 3.0 balloon History of open heart surgery History of open heart surgery S/P ICD (internal cardiac defibrillator) procedure Family History (Updated 10/15/19 @ 15:55 by Neena Lockett PA-C) Other Diabetes Social History (Updated 10/15/19 @ 15:59 by Neena Lockett PA-C) Preferred Language: Estonian Communication Ability: Effective Lisw Required: Yes Beliefs That Will Affect Care: None Current Living Situation: Spouse Feels Safe at Home: Yes Safety Concerns: Feels Safe At This Time Smoking Status: Former smoker Tobacco Type: cigarettes ; packs per day: 2 ; Years Smoked: 39 ; Cigarettes Per Day: quit 10 years ago ; Number of Years Since Quit: 10 ; Hx Alcohol Use: Yes (quit 30 years ago) Hx Substance Use: No Review of Systems See HPI for pertinent positives & negatives. and A total of 10 systems reviewed and were otherwise negative Physical Exam Vital Signs Vital Signs - 24 hr 10/15/19 12:39 10/15/19 14:22 10/15/19 14:24 Temperature 36.5 C Temperature Source Oral Pulse Rate 72 70 Pulse Rate [Left Finger] 68 Pulse Rate from SpO2 Sensor 70 Respiratory Rate 20 18 13 Blood Pressure 155/83 H 167/95 H Blood Pressure [Left Arm] 176/83 H Blood Pressure Mean 107 124 Blood Pressure Mean [Left Arm] 114 Pulse Oximetry 96 97 95 Oxygen Delivery Method Room Air Room Air Room Air Sepsis Recent Fever Within 48 Hours No Sepsis New/Unexplained Change in Mental Status No Sepsis Action Taken by Nursing No Action Required 10/15/19 14:28 10/15/19 14:30 10/15/19 14:31 Temperature Temperature Source Pulse Rate 69 67 66 Pulse Rate [Left Finger] Pulse Rate from SpO2 Sensor 68 66 68 Respiratory Rate 12 15 Blood Pressure 176/86 H Blood Pressure [Left Arm] Blood Pressure Mean 110 Blood Pressure Mean [Left Arm] Pulse Oximetry 97 97 96 Oxygen Delivery Method Room Air Room Air Room Air Sepsis Recent Fever Within 48 Hours Sepsis New/Unexplained Change in Mental Status Sepsis Action Taken by Nursing 10/15/19 14:40 10/15/19 14:50 10/15/19 15:00 Temperature Temperature Source Pulse Rate 70 70 69 Pulse Rate [Left Finger] Pulse Rate from SpO2 Sensor 74 72 69 Respiratory Rate 20 12 16 Blood Pressure 162/84 H Blood Pressure [Left Arm] Blood Pressure Mean 109 Blood Pressure Mean [Left Arm] Pulse Oximetry 96 96 96 Oxygen Delivery Method Room Air Room Air Room Air Sepsis Recent Fever Within 48 Hours Sepsis New/Unexplained Change in Mental Status Sepsis Action Taken by Nursing 10/15/19 15:01 Temperature Temperature Source Pulse Rate 70 Pulse Rate [Left Finger] Pulse Rate from SpO2 Sensor 70 Respiratory Rate 12 Blood Pressure Blood Pressure [Left Arm] Blood Pressure Mean Blood Pressure Mean [Left Arm] Pulse Oximetry 96 Oxygen Delivery Method Room Air Sepsis Recent Fever Within 48 Hours Sepsis New/Unexplained Change in Mental Status Sepsis Action Taken by Nursing GENERAL: Patient is awake alert in no acute distress patient is resting comfortably and showing no signs of anxiety EYES: The conjunctivae are clear. The pupils are round and reactive. EARS, NOSE, MOUTH AND THROAT: The nose is without any evidence of any deformity. Mucous membranes are moist. Tongue is midline. NECK: The neck is nontender and supple. RESPIRATORY: Diminished breath sounds are noted at both bases. There were rales noted at the right base. There is no tachypnea or conversational dyspnea. CARDIOVASCULAR: Regular rate and rhythm noted there no murmurs rubs or gallops normal S1 normal S2. GASTROINTESTINAL: The abdomen is soft. Abdomen is nontender. MUSCULOSKELETAL/EXTREMITIES: There is no evidence of gross deformity full range of motion is noted in the hips and shoulders. SKIN: There is a right great toe amputation noted. There is surrounding erythema that extends two thirds of the way back to the foot. There is tenderness along the right first metatarsal. There is purulent drainage noted at the surgical site. Eschar is noted. There is no lymphangitic streaking. NEUROLOGIC: Patient is awake alert and oriented x3. Course Course 1257: The patient was evaluated in room B2, and a complete history and physical examination were performed. 1302: I spoke to Dr. Petersen - Orthopedic Surgery. He recommends inpatient medical treatment if the patient is agreeable. He states if the patient refuses to stay, change the antibiotic regiment and follow-up with his clinic on Saturday. 1455: I discussed the patient's case with Neena Espinal PA-C. Dr. Jamison Espinal Hospitalist will evaluate the patient for further management. Administered Medications Carvedilol (Coreg) 3.125 mg PO BIDM [facility] Stop: 11/14/19 16:59 Last Admin: 10/15/19 17:28 Dose: 3.125 mg Documented by: [id number] Heparin Sodium/Dextrose (Heparin Sodium/Dextrose) 25,000 units in 500 mls @ 19 mls/hr IV .Q24H [facility]; Protocol Stop: 11/14/19 16:22 Last Admin: 10/15/19 17:16 Dose: 950 units/hr, 19 mls/hr Documented by: [id number] Cosigned by: [id number] Insulin Aspart (Novolog Flexpen) 0 units SC ACHS [facility] Stop: 11/14/19 16:29 Last Admin: 10/15/19 17:43 Dose: 10 units Documented by: [id number] Cosigned by: [id number] Ioversol (Optiray 320 100ml) 94 ml IV ONCE PRN PRN Reason: Interaction Checking Stop: 10/19/19 16:59 Last Admin: 10/15/19 17:00 Dose: 94 ml Documented by: [id number] Discontinued Medications Heparin Sodium/Dextrose () 1 ea IV Q30M [facility]; Protocol Stop: 11/14/19 16:29 Last Admin: 10/15/19 17:32 Dose: 1 ea Documented by: [id number] Piperacillin Sod/Tazobactam Sod (Zosyn) 4.5 gm in 120 mls @ 240 mls/hr IV NOW ONE Stop: 10/15/19 15:14 Last Infusion: 10/15/19 15:50 Dose: 0 mls/hr Documented by: [id number] Admin: 10/15/19 15:17 Dose: 240 mls/hr Documented by: [id number] Daptomycin 450 mg/ Syringe 9 mls @ 4.5 mls/min IV NOW ONE; Protocol Stop: 10/15/19 14:46 Last Admin: 10/15/19 15:17 Dose: 4.5 mls/min Documented by: [id number] Medical Decision Making Differential Diagnosis Differential diagnosis includes etiologies such as cellulitis, abscess, MRSA infection, DVT, necrotizing fasciitis, dermatitis, drug eruption, as well as others were entertained. Medical Records Attestation: I reviewed the patient's medical records. Home Medications Current Medication List: was personally reviewed by me Laboratory Data Attestation: I reviewed the patient's lab results. Result diagrams: 10/15/19 12:56 10/15/19 12:56 Lab Results 10/15/19 10/15/19 10/15/19 Range/Units 12:56 12:56 12:56 WBC 5.27 (4.8-10.8) K/uL RBC 4.45 L (4.7-6.1) M/uL Hgb 12.6 L (14.0-18.0) g/dL Hct 39.0 L (42-52) % MCV 87.6 (80-100) fL MCH 28.3 (25-34) pg MCHC 32.3 (32-36) g/dL RDW Std Deviation 45.8 (36.4-46.3) fL RDW Coeff of Yenny 14.3 (11.5-14.5) % Plt Count 184 (130-400) K/uL MPV 10.3 (7.4-10.4) fL Immature Gran % (Auto) 0.2 % Neut % (Auto) 65.2 % Lymph % (Auto) 23.0 % [place] % (Auto) 4.9 % Eos % (Auto) 5.9 % Baso % (Auto) 0.8 % Immature Gran # (Auto) 0.01 (0.00-0.02) K/uL Neut # (Auto) 3.44 (1.4-6.5) K/uL Lymph # (Auto) 1.21 (1.2-3.4) K/uL [place] # (Auto) 0.26 (0.11-0.59) K/uL Eos # (Auto) 0.31 (0-0.5) K/uL Baso # (Auto) 0.04 (0-0.2) K/uL ESR 39 H (0-14) mm/hr PT 15.2 H (9.0-12.0) Seconds INR 1.5 H (0.9-1.1) Sodium (136-145) mmol/L Potassium (3.5-5.1) mmol/L Chloride (98-107) mmol/L Carbon Dioxide (21-32) mmol/L Anion Gap (3-11) BUN (7-18) mg/dl Creatinine (0.6-1.4) mg/dl Est Cr Clr Drug Dosing ml/min Est GFR ( Amer) Est GFR (Non-Af Amer) BUN/Creatinine Ratio (10-20) Glucose (70-99) mg/dl Calcium (8.5-10.1) mg/dl Total Bilirubin (0.2-1) mg/dl AST (15-37) U/L ALT (12-78) U/L Alkaline Phosphatase (45-117) U/L C-Reactive Protein (0-0.29) mg/dl Total Protein (6.4-8.2) gm/dl Albumin (3.4-5.0) gm/dl Globulin (2.5-4.0) gm/dl Albumin/Globulin Ratio (0.9-2) Procalcitonin (0-0.5) ng/ml 10/15/19 10/15/19 Range/Units 12:56 12:56 WBC (4.8-10.8) K/uL RBC (4.7-6.1) M/uL Hgb (14.0-18.0) g/dL Hct (42-52) % MCV (80-100) fL MCH (25-34) pg MCHC (32-36) g/dL RDW Std Deviation (36.4-46.3) fL RDW Coeff of Yenny (11.5-14.5) % Plt Count (130-400) K/uL MPV (7.4-10.4) fL Immature Gran % (Auto) % Neut % (Auto) % Lymph % (Auto) % [place] % (Auto) % Eos % (Auto) % Baso % (Auto) % Immature Gran # (Auto) (0.00-0.02) K/uL Neut # (Auto) (1.4-6.5) K/uL Lymph # (Auto) (1.2-3.4) K/uL [place] # (Auto) (0.11-0.59) K/uL Eos # (Auto) (0-0.5) K/uL Baso # (Auto) (0-0.2) K/uL ESR (0-14) mm/hr PT (9.0-12.0) Seconds INR (0.9-1.1) Sodium 137 (136-145) mmol/L Potassium 4.9 (3.5-5.1) mmol/L Chloride 106 (98-107) mmol/L Carbon Dioxide 28 (21-32) mmol/L Anion Gap 3.0 (3-11) BUN 34 H (7-18) mg/dl Creatinine 1.09 (0.6-1.4) mg/dl Est Cr Clr Drug Dosing 63.3 ml/min Est GFR ( Amer) 77.1 Est GFR (Non-Af Amer) 66.5 BUN/Creatinine Ratio 31.6 H (10-20) Glucose 248 H (70-99) mg/dl Calcium 10.1 (8.5-10.1) mg/dl Total Bilirubin 0.4 (0.2-1) mg/dl AST 14 L (15-37) U/L ALT 22 (12-78) U/L Alkaline Phosphatase 127 H (45-117) U/L C-Reactive Protein 0.51 H (0-0.29) mg/dl Total Protein 7.9 (6.4-8.2) gm/dl Albumin 3.6 (3.4-5.0) gm/dl Globulin 4.3 H (2.5-4.0) gm/dl Albumin/Globulin Ratio 0.8 L (0.9-2) Procalcitonin < 0.05 (0-0.5) ng/ml Imaging Data Radiologist's Impression: Radiology results as stated below per my review and the radiologist's interpretation: XR foot RT min 3V routine CLINICAL HISTORY: swelling COMPARISON STUDY: Right foot 08/17/2019. FINDINGS: Interval amputation of the right first toe. Mild soft tissue swelling at the head of the first metatarsal. This could be due to postoperative changes. Mild vascular calcifications. Stable small focal erosion/cystic change at the head of the first metatarsal. No new erosions or cortical destruction to suggest osteomyelitis at this time. IMPRESSION: Status post right first toe amputation. No new areas of cortical destruction to suggest osteomyelitis. Soft tissue swelling at the head of the first MTP joint may be due to postoperative change. ACT 112: Negative or not required by law. Results electronically sent 10/15/2019 2:09 PM to: Bib Walsh DO Electronically signed by: Hernan Mirza M.D. 10/15/2019 2:09 PM Blood Pressure Blood Pressure Findings: Elevated blood pressure Blood Pressure Disposition: further management by hospitalist JIM Narrative Continuous Cardiac Monitoring: An order was placed for continuous cardiac monitoring. The monitor shows a rate of 72 with a sinus rhythm. The patient is a 74-year-old male who presented to the emergency department for an evaluation of right foot pain. The patient had a history of having his right great toe removed for infection. He presents emergency department today from the [facility] for an evaluation possible infection. The patient's foot appears to be severely infected on physical exam. He was treated with IV antibiotics in the emergency department. The x-ray did not show any definite signs of osteomyelitis but I do have concern given the patient's exam that this does represent an underlying osteomyelitis. I discussed the patient's laboratory and radiographic studies with him. I discussed this case with the on-call [facility] hospitalist group. They have agreed to evaluate the patient in the emergency department for further management disposition. I discussed this case with the patient's primary orthopedic surgeon. He does state that the patient may require an amputation if this does not improve given this fact I do feel the patient warrants inpatient treatment with IV antibiotics to given the best chance to keep his foot. The patient was agreeable to this plan when I talked to them. Impression & Plan Cellulitis of foot, right, Post-operative infection Discharge Plan Visit Data *Final* Discharge Date/Time: 10/15/19 16:04 Chief Complaint: Foot Injury/Pain Stated Complaint: RIGHT FOOT BIG TOE INFECTED - POST OP ED Provider: Bib Walsh Discharge Problem: Cellulitis of foot, right, Post-operative infection Patient Disposition: Admitted As Inpatient Discharge Instructions Interventions: ED Discharge Assessment Last Done: 10/15/19 16:04 Discharge Problem: Post-operative infection Qualifiers: Encounter type: initial encounter Postoperative infection type: deep incisional surgical site Qualified Code(s): T81.42XA - Infection following a procedure, deep incisional surgical site, initial encounter The scribe's documentation has been prepared under my direction and personally reviewed by me in its entirety. I confirm that the note above accurately reflects all work, treatment, procedures, and medical decision making performed by me.
[2019-10-15 13:24] LABS: INR 1.5 (0.9-1.1); Prothrombin Time 15.2 Seconds (9.0-12.0)
[2019-10-15 13:27] LABS: Albumin Level 3.6 gm/dl (3.4-5.0); BUN Creatinine Ratio 31.6 (10-20); Calcium 10.1 mg/dl (8.5-10.1); Creatinine Clr Calc Pharmacy 63.3 ml/min; Est GFR (African American) 77.1; Est GFR (Non-African American) 66.5; Potassium 4.9 mmol/L (3.5-5.1)
[2019-10-15 13:30] LABS: Albumin Globulin Ratio 0.8 (0.9-2); Bilirubin,Total 0.4 mg/dl (0.2-1); C Reactive Protein 0.51 mg/dl (0-0.29); Globulin 4.3 gm/dl (2.5-4.0); Total Protein 7.9 gm/dl (6.4-8.2)
--- NOTE | 2019-10-15 14:10 | XRay Report ---
XR foot RT min 3V routine CLINICAL HISTORY: swelling COMPARISON STUDY: Right foot 08/17/2019. FINDINGS: Interval amputation of the right first toe. Mild soft tissue swelling at the head of the fi rst metatarsal. This could be due to postoperative changes. Mild vascular calcifications. Stable smal l focal erosion/cystic change at the head of the first metatarsal. No new erosions or cortical destru ction to suggest osteomyelitis at this time. IMPRESSION: Status post right first toe amputation. No new areas of cortical destruction to suggest osteomyelitis. Soft tissue swelling at the head of the first MTP joint may be due to postoperative ch iona. ACT 112: Negative or not required by law. Results electronically sent 10/15/2019 2:09 PM to: Bib Walsh DO Electronically signed by: Hernan Mirza M.D. 10/15/2019 2:09 PM
[2019-10-15] MEDS ORDERED: PIPERACILLIN/TAZOBACTAM 4.5 GM/120 ML BAG IV ONE (14:45)
[2019-10-15] MEDS ORDERED: DAPTOmycin 450 MG in SYRINGE 0 ML IV ONE (14:45)
--- NOTE | 2019-10-15 15:58 | History & Physical Report ---
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 In ED patient remained hemodynamically stable. He was afebrile. WBC 5.27, ESR 39, CRP 0.51, pro-Wesley WNL, glucose 248, BUN 34, creatinine 1.09, INR 1.5, H&H 12.6 and 39.0 R foot Xray revealed: Status post right first toe amputation. No new areas of cortical destruction to suggest osteomyelitis. Soft tissue swelling at the head of the first MTP joint may be due to postoperative change. He received IV daptomycin and IV zosyn while in ED. CRP is reduced from 08/17/19 11.5 to today 0.51; ESR was 85 now 39 wound culture and blood culture is pending. admit to [facility] tele continue IV zosyn and daptomycin for now consult ID Dr. Martin Consult Orthopedist Dr. Petersen who performed great toe amp wound and blood cultures pending contact precautions pt may ambulate with hardsole shoe wound consult placed tight glycemic control Xray does not reveal any acute OM; will discuss with MRI to see if ICD compatible if not will order CT to R great toe (2) Status post amputation of right great toe: s/p R great toe osteomyelitis status post right great toe amputation on 08/18/[address] Petersen Wound culture positive MRSA Received IV daptomycin until 10/05 Continues with open wound Treatment as above (3) PAD (peripheral artery disease): History of angioplasty to RLE "Successful right common iliac artery stenting with 2 overlapping covered stents (Lifestream 9.0 x 38, 9.0 x 38). Successful angioplasty of right anterior tibial artery with 3.0 balloon" by Dr. Ken Continue Plavix and warfarin (IV heparin for now) x [address] Ken (4) CAD (coronary artery disease): No chest pain or shortness of breath Continue losartan, carvedilol, Plavix (5) CHF (congestive heart failure): Chronic systolic CHF secondary to ischemic cardiomyopathy Last echo 08/2019 revealed EF of 40% Euvolemic on exam, on dry side Continue losartan, Aldactone AICD in place Hold Lasix for now, reassess daily need to resume (6) Left ventricular aneurysm: On long-term warfarin, INR 1.5 Hold warfarin for now due to possible impending surgery IV heparin bridge ordered (7) Diabetes: Last A1c 9.4 08/17/2019 Lantus/NovoLog per protocol Recommend tight control for wound healing (8) Anemia: H&H stable at 12.6 and 39.0 Monitor (9) CKD (chronic kidney disease) stage 3, GFR 30-59 ml/min: cr 1.09 bun 34/creatinine 1.09 with ratio 31.6 Patient has been taking 40 mg Lasix daily ( prescribed prn for 2lb weight gain) Hold Lasix for now and reassess point status in a.m. and he clinically appears dry on exam (10) DVT prophylaxis: IV Heparin, low dose no bolus INR Subtherapeutic, HOLD warfarin for now and continue IV heparin in event ortho to plan procedure Disposition: admit to [facility] tele Follow up: PCP Dr. Segura upon discharge Pt was seen and examined in collaboration with Dr. Swift, please see addendum History of Present Illness Chief Complaint: Increased purulent drainage from right great toe amputation site x3 days. 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 Of significance patient hospitalized 08/17 to 08/24/2019 secondary to right great toe osteomyelitis and acute PAD. During hospitalization he underwent angioplasty to right anterior tibial artery and right common iliac artery by Dr. Ken. He also underwent amputation of right great toe on 08/18/[address] Petersen. Wound culture grew positive MRSA and he was placed on IV antibiotics. PICC line was in place and he received IV Dapto for 7 weeks until 10/05/2019. He followed up with Dr. Petersen as well as Dr. Martin as outpatient. Unfortunately he had inadequate wound healing and continues to have open wound with eschar in place. He was seen by Dr. Martin in clinic today who recommended ED evaluation due to chronic nonhealing wound and concern for need for further surgery. He does elicit that he has had purulent drainage from site for the past 3 days as well as increased rounding redness and warmth. He denies any significant pain. He denies any fever, chills, sweats, lightheadedness, dizziness, chest pain, shortness breath, pal pitations, nausea, vomiting, abdominal pain. His last BM was this morning and normal. Denies hematochezia. He is urinating without difficulty. He has been taking medication as prescribed. When his IV daptomycin was discontinued he was transitioned to oral doxycycline 100 mg twice a day which he has been compliant with. Last dose was this morning. He remains on long-term warfarin therapy sec ondary to left ventricular aneurysm on warfarin 10 mg daily. INR is subtherapeutic today. He is also on a regimen of warfarin and Plavix secondary to recent right lower extremity angioplasty. Plan is to remain on warfarin and Plavix for 3 months and transition to warfarin and aspirin. His appetite has been stable and he denies any weight gain. His last admission he states his weight went from 206 to 198. In ED patient remained hemodynamically stable. He was afebrile. WBC 5.27, ESR 39, CRP 0.51, pro-Wesley WNL, glucose 248, BUN 34, creatinine 1.09, INR 1.5, H&H 12.6 and 39.0 R foot Xray revealed: Status post right first toe amputation. No new areas of cortical destruction to suggest osteomyelitis. Soft tissue swelling at the head of the first MTP joint may be due to postoperative change. He received IV daptomycin and IV zosyn while in ED. CRP is reduced from 08/17/19 11.5 to today 0.51; ESR was 85 now 39 wound culture and blood culture is pending. Allergies Allergy/AdvReac Type Severity Reaction Status Date / Time No Known Drug Allergies Allergy Verified 10/15/19 13:24 Home Medications Home Medications Medication Instructions Recorded Confirmed Type Lantus Solostar U-100 Insulin 40 unit SUBCUT HS 08/17/19 10/15/19 History carvedilol 3.125 mg PO BIDM 08/17/19 10/15/19 History furosemide 40 mg PO QAM PRN 08/17/19 10/15/19 History losartan 25 mg PO QAM 08/17/19 10/15/19 History spironolactone 25 mg PO QAM 08/17/19 10/15/19 History warfarin 10 mg PO PM 08/17/19 10/15/19 History clopidogrel 75 mg PO QAM 30 Days #30 tab 08/23/19 10/15/19 Rx doxycycline monohydrate 100 mg 100 mg PO BID #60 cap 10/05/19 10/15/19 Rx capsule Past Med/Surg History Medical History (Updated 10/15/19 @ 16:53 by Bib Walsh DO) Amputation of right great toe Anemia CAD (coronary artery disease) CHF (congestive heart failure) CKD (chronic kidney disease) stage 3, GFR 30-59 ml/min Diabetes Ischemic cardiomyopathy Left ventricular aneurysm Necrosis of toe (Resolved) PAD (peripheral artery disease) Surgical History (Updated 10/15/19 @ 16:04 by Neena Lockett PA-C) History of amputation of great toe R great toe amp by Dr. Petersen 08/18/19 History of angioplasty of peripheral vessel 08/21/2019 Summary: 1. Right lower [id number] to 90% heavily calcified proximal common iliac stenosis, mild to moderate diffuse SFA/popliteal disease, subtotally occluded anterior tibial artery, occluded posterior tibial artery. 2. Left lower extremitycalcified, mild diffuse iliac/WOOD FLOOR LAYER disease 3. Successful right common iliac artery stenting with 2 overlapping covered stents (Lifestream 9.0 x 38, 9.0 x 38). 4. Successful angioplasty of right anterior tibial artery with 3.0 balloon History of open heart surgery History of open heart surgery S/P ICD (internal cardiac defibrillator) procedure Family History (Updated 10/15/19 @ 15:55 by Neena Lockett PA-C) Other Diabetes Social History (Updated 10/15/19 @ 15:59 by Neena Lockett PA-C) Preferred Language: Cymro Communication Ability: Effective Manager State Required: Yes Beliefs That Will Affect Care: None Current Living Situation: Spouse Feels Safe at Home: Yes Safety Concerns: Feels Safe At This Time Smoking Status: Former smoker Tobacco Type: cigarettes ; packs per day: 2 ; Years Smoked: 39 ; Cigarettes Per Day: quit 10 years ago ; Number of Years Since Quit: 10 ; Hx Alcohol Use: Yes (quit 30 years ago) Hx Substance Use: No Review of Systems Review of Systems: All systems reviewed & are unremarkable except as noted in HPI & below Physical Exam Physical Exam: Constitutional: Chronically ill-appearing 74-year-old male, WD/WN, vitals as above, NAD, sitting up in bed, pleasant, conversing easily Head: Normocephalic, Atraumatic Eyes: PERRL, conjunctivae normal, anicteric sclerae ENMT: external ear and nose normal, oropharynx normal Neck: trachea midline, no thyromegaly normal visual inspection Respiratory: normal respiratory effort, lungs clear to auscultation, no wheeze, rales, rhonchi. Normal insp/exp effort, no accessory muscle use Cardiovascular: RRR, no murmur, no edema, bilateral pedal pulse +1, bilateral PT pulses +1 negative vessels: no JVD or carotid bruit Chest: normal inspection of chest , sternal scar noted Abdomen: normal bowel sounds, soft, nontender, no hepatosplenomegaly Musculoskeletal: no cyanosis or clubbing, extremities motor strength 5/5 Skin: no rashes, warm and dry normal turgor, R great toe with open wound s/p amp with eschar covering wound, surrounding erythema and warmth Neurologic: PERRL, EOMI, accommodation nl, no face palsy, no dysarthria CN's II-XI intact bilaterally and moves all extremities Psychiatric: A+Ox3, euthymic affect Lymphatic: no cervical or axillary lymphadenopathy : deferred Results & Data Vital Signs (Past 12 Hours) Vital Signs Temp Pulse Pulse Resp BP BP Pulse Ox 10/15/19 14:22 68 18 176/83 H 97 10/15/19 12:39 36.5 C 72 20 155/83 H 96 Laboratory Results Short CBC 10/15/19 10/15/19 10/15/19 Range/Units 12:56 12:56 12:56 WBC 5.27 (4.8-10.8) K/uL Hgb 12.6 L (14.0-18.0) g/dL Hct 39.0 L (42-52) % Plt Count 184 (130-400) K/uL ESR 39 H (0-14) mm/hr C-Reactive Protein 0.51 H (0-0.29) mg/dl BMP 10/15/19 12:56 Sodium 137 Potassium 4.9 Chloride 106 Carbon Dioxide 28 BUN 34 H Creatinine 1.09 Glucose 248 H Calcium 10.1 Liver Function 10/15/19 Range/Units 12:56 Total Bilirubin 0.4 (0.2-1) mg/dl AST 14 L (15-37) U/L ALT 22 (12-78) U/L Alkaline Phosphatase 127 H (45-117) U/L Albumin 3.6 (3.4-5.0) gm/dl Diagnostic Findings CXR: IMPRESSION: Status post right first toe amputation. No new areas of cortical destruction to suggest osteomyelitis. Soft tissue swelling at the head of the first MTP joint may be due to postoperative change. Medications Administered Discontinued Medications Piperacillin Sod/Tazobactam Sod (Zosyn) 4.5 gm in 120 mls @ 240 mls/hr IV NOW ONE Stop: 10/15/19 15:14 Last Infusion: 10/15/19 15:50 Dose: 0 mls/hr Documented by: [id number] Admin: 10/15/19 15:17 Dose: 240 mls/hr Documented by: [id number] Daptomycin 450 mg/ Syringe 9 mls @ 4.5 mls/min IV NOW ONE; Protocol Stop: 10/15/19 14:46 Last Admin: 10/15/19 15:17 Dose: 4.5 mls/min Documented by: [id number] Code Status & VTE Plan Code Status Full code VTE Prophylaxis Plan VTE Prophylaxis will be ordered: Yes Supervising Physician Co-Signing Physician Notes Attending addendum The patient was seen and examined in medical floor He has been complaining of increasing redness and swelling involving the right foot wound, status post right great toe amputation for osteomyelitis He has been on oral antibiotic recently following intravenous antibiotics Denies any significant pain and denies any other symptoms On examination Sitting at the edge of the bed without any acute distress Hemodynamically stable Chest-clear to auscultate bilaterally Heart-S1-S2 Abdomen-benign Extremities-right foot is bandaged LINK ASSEMBLER-alert, awake and oriented x3. No focal sensory and motor deficit appreciated Admission labs and imaging studies reviewed CT of the foot did show osteomyelitis involving the first metatarsal bone with surrounding cellulitis Has been started with intravenous Dapto and Zosyn with ID and Ortho consult He has other significant comorbid medical conditions as documented in H&P and those were addressed. Agree with assessment and plan as outlined above by Neena Swift
[2019-10-15] MEDS ORDERED: CARBOHYDRATES FOR HYPOGLYCEMIA PO PRN (16:23)
[2019-10-15] MEDS ORDERED: PIPERACILL/TAZOBAC CONSULT ACTIVE PRN (16:23)
[2019-10-15] MEDS ORDERED: GLUCOSE 10 TABS/TUBE PO PRN (16:23)
[2019-10-15] MEDS ORDERED: ONDANSETRON INJ 2 MG/ML 2 ML VIAL IV PRN (16:23)
[2019-10-15] MEDS ORDERED: GLUCOSE 40% GEL 15 GM TUBE PO PRN (16:23)
[2019-10-15] MEDS ORDERED: ACETAMINOPHEN 325 MG TAB PO PRN (16:23)
[2019-10-15] MEDS ORDERED: DEXTROSE 50% 50 ML SYRINGE IV PRN (16:23)
[2019-10-15] MEDS ORDERED: GLUCAGON FOR INJ 1 MG VIAL SQ PRN (16:23)
[2019-10-15] MEDS ORDERED: MAGNESIUM HYDROXIDE SUSP 30 ML UDC PO PRN (16:23)
[2019-10-15] MEDS ORDERED: ALUMINUM/MAGNESIUM SUSP 30 ML UDC PO PRN (16:23)
[2019-10-15] MEDS ORDERED: POLYETHYLENE (MIRALAX) 17 GM PACK PO PRN (16:23)
[2019-10-15] MEDS ORDERED: HEPARIN SODIUM/DEXTROSE 25,000 UNITS/500 ML BAG IV SCH (16:23)
[2019-10-15] MEDS ORDERED: DAPTOMYCIN CONSULT ACTIVE PRN (16:28)
[2019-10-15] MEDS ORDERED: Heparin IV Low Dose *NO* Bolus IV SCH (16:30)
[2019-10-15] MEDS ORDERED: IOVERSOL 100ml IV PRN (17:00)
--- NOTE | 2019-10-15 17:20 | CT Scan Report ---
CT foot RT w con HISTORY: 74 years-old Male r/o R great toe amputation wound Osteo status post amputation of the grea t toe at the level of the metatarsal phalangeal joint. Clinical concern for osteomyelitis. COMPARISON: Radiographs of the right foot of same day, CT right foot 08/22/2019 TECHNIQUE: Multiple axial CT images of the right foot were obtained following the intravenous adminis tration of 94 mL Optiray 320 IV contrast. Coronal and sagittal reformatted images were obtained from the axial data set and were submitted for review. A dose lowering technique was used consistent with the principals of PEDRO. FINDINGS: Postoperative changes of amputation of the great toe at the level the metatarsal-phalangeal joint red emonstrated. Moderate subcutaneous edema with mild deep tissue gas is noted adjacent to the amputatio n site. Extensive arterial calcifications are noted along with moderate atrophy of the extrinsic musc ulature suggestive of chronic denervation changes. No drainable fluid collection. Study is not tailor ed to assess the intrathecal ligaments and tendons. Thickening of the distal Achilles tendon suggests chronic tendinosis. Irregularity of the cutaneous surface suggests persistent soft tissue ulceration. Scattered subcortic al cystic change with marginal osteophytic spurring compatible with osteoarthritis is again noted inv olving the first metatarsal head and hallux sesamoids. There are new areas of cortical lucency/irregu larity of the metatarsal head, greatest of which measures 6 mm on image 131 series 4 suggestive of ea rly acute osteomyelitis changes. Mild to moderate multifocal osteoarthritis throughout the forefoot, midfoot and hindfoot. No acute fracture, dislocation or additional osseous erosions. Midfoot alignmen t is anatomic. Enthesophyte of the calcaneus. Talar dome is smooth without osteochondral defect. IMPRESSION: 1. Postoperative changes of prior amputation of the great toe at the level of the metatarsal phalange al joint. There is subcutaneous edema with small amount of fluid and adjacent deep tissue air with pr obable cutaneous ulcer adjacent to the amputation site suggestive of gas forming organism with cellul itis. Deep to the soft tissue findings there is new multifocal cortical irregularity and lucency of t he first metatarsal head suggestive of acute osteomyelitis. 2. Additional findings as above. ACT 112: Negative or not required by law. The above report was generated using voice recognition software. It may contain grammatical, syntax o r spelling errors. Results electronically sent 10/15/2019 5:18 PM to: Neena Lockett PA-C Electronically signed by: Jarad Hermosillo M.D. 10/15/2019 5:18 PM
[2019-10-15] MEDS: carvediloL 3.125 MG TAB PO SCH (17:28)
[2019-10-15] MEDS: INSULIN ASPART 100 UNITS/ML 3 ML PEN SC SCH ×2 (17:43→20:45)
[2019-10-15] MEDS: PIPERACILLIN/TAZOBACTAM 3.375 GM in DEXTROSE 5% 100 ML IV SCH (20:06)
[2019-10-15] MEDS ORDERED: INSULIN GLARGINE SOLOSTAR 100 UNITS/ML 3 ML PEN SC SCH (21:00)
[2019-10-15 23:51] LABS: Partial Thromboplastin Ratio 1.6; Partial Thromboplastin Time 43.3 Seconds (21.0-31.0)
[2019-10-15] MEDS ORDERED: HEPARIN IV BOLUS 3,000 UNITS in SYRINGE 0 ML IV ONE (23:52)
[2019-10-16] MEDS: PIPERACILLIN/TAZOBACTAM 3.375 GM in DEXTROSE 5% 100 ML IV SCH ×2 (04:06→12:46)
--- NOTE | 2019-10-16 06:12 | Orthopedic Consultation ---
Date of Consultation October 16, 2019 Assessment & Plan (1) Osteomyelitis: Miguel Ángel is an uncontrolled diabetic with a difficult wound on his amputated right great toe. He has a large area of necrosis and a persistent infection in the area. There is also some evidence of possible osteomyelitis at the very tip of the metatarsal head. He was fairly stable on the IV daptomycin but when that was switched to oral doxycycline his symptoms worsen. His foot is looking better today since he has been back on the IV daptomycin. We talked about 3 different treatment options at bedside. Option 1 we could leave the wound alone and continue a different regimen of oral antibiotics. I am always h esitant to continue debriding a diabetic foot and if it seems stable or very slowly improving then we may consider antibiotics and observation for now. We can always be more aggressive if his symptoms worsen. We discussed the risk of becoming septic from this approach as well. Option 2 would be to do a debridement in the OR. I would remove the eschar and debride the surrounding edges. I am unsure, however, if this would promote more healing or only set him back. He is an uncontrolled diabetic and I am hesitant to disrupt this wound. Option #3 would be to do a first ray resection. I would remove the entire first metatarsal. I would have enough skin to fully close the wound. This should eliminate any concerns for osteomyelitis at the head of the first metatarsal. Unfortunately, there is always a chance that this wound does not heal. He would lose significant pushoff strength when he ambulates and it would significantly affect his gait. He would likely require a cane and shoewear modifications in the future. I discussed all these options with him. He seems to want to be treated with observation for now and a change in antibiotic regimen. He understands the risks of sepsis with this approach and he also understands that if his symptoms worsen then we may have to proceed with further amputation. I do want to discuss this with infectious disease and wound care as well who have also been consulted on the case. I am going to keep him n.p.o. for now in case we do anything this afternoon. Present on Admission?: Yes (2) Open wound of right great toe: Present on Admission?: Yes (3) Status post amputation of right great toe: Present on Admission?: Yes History of Present Illness Reason for Consultation: Necrosis and infection around wound of right great toe Attending Physician: Federico Swift MD History of Present Illness Miguel Ángel is a 74-year-old male who initially presented to the hospital 2 months ago with infection and advanced necrosis of his right great toe. He said he had several nail trimming procedures in the month before the infection and necrosis. He came to the hospital and cultures grew out MRSA. He then underwent a great toe amputation at the MTP joint on 08-18-19. He was also seen by vascular and had arterial angioplasty and stenting of his right lower extremity on 08-21-19. He was placed on IV daptomycin for 6 weeks and discharged home. We have been waiting for the wound to heal and he has not been followed up with wound care. The distal end of the wound became necrotic. The antibiotics seemed to be working well. He was not sick and sequential follow-up visits showed the wound to be slowly healing. He followed up with infectious disease last week and they stopped the 6-week course of IV daptomycin. He was started on doxycycline twice a day. Since that time he is noticed increased purulent discharge from the wound. He presented back to the hospital for treatment. All infection markers were moving in the right direction. His sed rate and CRP were decreased from the previous visits. He has no white count and his vital signs are all stable. His glucose levels were above 250. Allergies Allergy/AdvReac Type Severity Reaction Status Date / Time No Known Drug Allergies Allergy Verified 10/15/19 13:24 Home Medications Home Medications Medication Instructions Recorded Confirmed Type Lantus Solostar U-100 Insulin 40 unit SUBCUT HS 08/17/19 10/15/19 History carvedilol 3.125 mg PO BIDM 08/17/19 10/15/19 History furosemide 40 mg PO QAM PRN 08/17/19 10/15/19 History losartan 25 mg PO QAM 08/17/19 10/15/19 History spironolactone 25 mg PO QAM 08/17/19 10/15/19 History warfarin 10 mg PO PM 08/17/19 10/15/19 History clopidogrel 75 mg PO QAM 30 Days #30 tab 08/23/19 10/15/19 Rx doxycycline monohydrate 100 mg 100 mg PO BID #60 cap 10/05/19 10/15/19 Rx capsule Patient History Medical History Amputation of right great toe Anemia CAD (coronary artery disease) CHF (congestive heart failure) CKD (chronic kidney disease) stage 3, GFR 30-59 ml/min Diabetes Ischemic cardiomyopathy Left ventricular aneurysm Necrosis of toe (Resolved) PAD (peripheral artery disease) Surgical History History of amputation of great toe R great toe amp by Dr. Petersen 08/18/19 History of angioplasty of peripheral vessel 08/21/2019 Summary: 1. Right lower [id number] to 90% heavily calcified proximal common iliac stenosis, mild to moderate diffuse SFA/popliteal disease, subtotally occluded anterior tibial artery, occluded posterior tibial artery. 2. Left lower extremitycalcified, mild diffuse iliac/DATABASE COORDINATOR disease 3. Successful right common iliac artery stenting with 2 overlapping covered stents (Lifestream 9.0 x 38, 9.0 x 38). 4. Successful angioplasty of right anterior tibial artery with 3.0 balloon History of open heart surgery History of open heart surgery S/P ICD (internal cardiac defibrillator) procedure Family History Other Diabetes Social History Preferred Language: Sierra Leonean Communication Ability: Effective Crime Scene Specialist Required: Yes Beliefs That Will Affect Care: None Current Living Situation: Spouse Feels Safe at Home: Yes Safety Concerns: Feels Safe At This Time Smoking Status: Former smoker Tobacco Type: cigarettes ; packs per day: 2 ; Years Smoked: 39 ; Cigarettes Per Day: quit 10 years ago ; Number of Years Since Quit: 10 ; Hx Alcohol Use: Yes (quit 30 years ago) Hx Substance Use: No Review of Systems Review of Systems: All systems reviewed & are unremarkable except as noted in HPI & below Physical Exam Musculoskeletal: On physical examination of the right foot, there is a large area of necrosis at the stump of the amputation site. The large eschar seems to be slowly peeling off. I do not see any purulent discharge this morning. There is very minimal erythema around the wound. The rest of the foot actually looks okay. Results & Data ([facility]) Vital Signs (Past 12 Hours) Vital Signs Temp Pulse Pulse Resp BP Pulse Ox 10/16/19 04:03 36.6 C 64 18 105/61 94 10/16/19 02:03 69 10/15/19 23:39 36.4 C L 68 18 106/64 97 10/15/19 19:20 36.6 C 75 18 130/[address] scan of the right foot shows some cortical lucencies at the tip of the first metatarsal head. This is concerning for possible osteomyelitis. There is also some air within the soft tissue behind the wound. PG Care Time/CCT Total # of Minutes Spent Total Time Spent with Patient: Total time spent is greater than 50% in coordination of care (as documented) at patient's floor/unit and/or counseling patient: Coding Level of Care Code 10796 Inpt Consult Level 4 Diagnoses Osteomyelitis M86.9 Open wound of right great toe S91.101A Status post amputation of right great toe Z89.411
[2019-10-16 07:10] LABS: Basophils # (auto) 0.06 K/uL (0-0.2); Basophils % (auto) 0.8 %; Eosinophils # (auto) 0.38 K/uL (0-0.5); Eosinophils % (auto) 5.3 %; Hematocrit (blood only) 41.4 % (42-52); Hemoglobin 13.6 g/dL (14.0-18.0); Immature Granulocytes # (auto) 0.01 K/uL (0.00-0.02); Immature Granulocytes % (auto) 0.1 %; Lymphocytes # (auto) 1.02 K/uL (1.2-3.4); Lymphocytes % (auto) 14.1 %; Mean Corpuscular Hemoglobin 28.9 pg (25-34); Mean Corpuscular Hgb Conc 32.9 g/dL (32-36); Mean Corpuscular Volume 88.1 fL (80-100); Mean Platelet Volume 10.8 fL (7.4-10.4); Monocytes # (auto) 0.51 K/uL (0.11-0.59); Monocytes % (auto) 7.1 %; Neutrophils # (auto) 5.23 K/uL (1.4-6.5); Neutrophils % (auto) 72.6 %; Platelet Count 186 K/uL (130-400); RDW Coefficient of Variation 14.4 % (11.5-14.5); RDW Standard Deviation 46.5 fL (36.4-46.3); White Blood Count 7.21 K/uL (4.8-10.8)
[2019-10-16 07:30] LABS: INR 1.5 (0.9-1.1); Partial Thromboplastin Ratio 2.2; Prothrombin Time 15.1 Seconds (9.0-12.0)
[2019-10-16 07:37] LABS: Partial Thromboplastin Time 60.1 Seconds (21.0-31.0)
[2019-10-16 07:44] LABS: BUN Creatinine Ratio 24.6 (10-20); Est GFR (African American) 67.9; Est GFR (Non-African American) 58.6; Potassium 4.4 mmol/L (3.5-5.1)
[2019-10-16] MEDS: carvediloL 3.125 MG TAB PO SCH (07:52)
[2019-10-16] MEDS: INSULIN ASPART 100 UNITS/ML 3 ML PEN SC SCH ×2 (07:56→12:46)
[2019-10-16] MEDS ORDERED: Nursing to Pharmacy Communication ONE (08:11)
[2019-10-16] MEDS ORDERED: LOSARTAN POTASSIUM 25 MG TAB PO SCH (09:00)
[2019-10-16] MEDS ORDERED: SPIRONOLACTONE 25 MG TAB PO SCH (09:00)
[2019-10-16] MEDS ORDERED: CLOPIDOGREL BISULFATE 75 MG TAB PO SCH (09:00)
[2019-10-16 11:27] VITALS: BP 105/67; TEMP 97.9; O2SAT 95
--- NOTE | 2019-10-16 13:12 | Infectious Disease Consult ---
Date of Consultation October 16, 2019 Assessment & Plan (1) Post-operative infection: continue current abx, await findings of debridement, final abx will depend on final culture results. I will be away until 10/25, would suggest transfer if any ongoing ID concerns. History of Present Illness Attending Physician: Cynthia Green MD pt admitted with worsening foot wound and increased drainage. was seen in ID office yesterday and was instructed to go to ER, initially declined but did go last night. culture done in office yesterday and in ER, growing gnr x 3, final pending. ER culture with same. previously grew MRSA, was treated with dapto and transitioned to po doxy and was taking until yesterday. now on dapto and zosyn and tolerating well. states he was told by ortho that he would be d/c home today, but appears to be npo for OR debridement. afebrile. wbc 7, ESR 39. no abd pain, no n/v/d. no cp, sob, cough. no pain in foot, less draiange, still with necrosis. was not wearing any bandage/dressing at home. asking to go home. Allergies Allergy/AdvReac Type Severity Reaction Status Date / Time No Known Drug Allergies Allergy Verified 10/15/19 13:24 Home Medications Home Medications Medication Instructions Recorded Confirmed Type Lantus Solostar U-100 Insulin 40 unit SUBCUT HS 08/17/19 10/15/19 History carvedilol 3.125 mg PO BIDM 08/17/19 10/15/19 History furosemide 40 mg PO QAM PRN 08/17/19 10/15/19 History losartan 25 mg PO QAM 08/17/19 10/15/19 History spironolactone 25 mg PO QAM 08/17/19 10/15/19 History warfarin 10 mg PO PM 08/17/19 10/15/19 History clopidogrel 75 mg PO QAM 30 Days #30 tab 08/23/19 10/15/19 Rx doxycycline monohydrate 100 mg 100 mg PO BID #60 cap 10/05/19 10/15/19 Rx capsule Patient History Medical History Amputation of right great toe Anemia CAD (coronary artery disease) CHF (congestive heart failure) CKD (chronic kidney disease) stage 3, GFR 30-59 ml/min Diabetes Ischemic cardiomyopathy Left ventricular aneurysm Necrosis of toe (Resolved) PAD (peripheral artery disease) Surgical History History of amputation of great toe R great toe amp by Dr. Petersen 08/18/19 History of angioplasty of peripheral vessel 08/21/2019 Summary: 1. Right lower [id number] to 90% heavily calcified proximal common iliac stenosis, mild to moderate diffuse SFA/popliteal disease, subtotally occluded anterior tibial artery, occluded posterior tibial artery. 2. Left lower extremitycalcified, mild diffuse iliac/[employer] disease 3. Successful right common iliac artery stenting with 2 overlapping covered stents (Lifestream 9.0 x 38, 9.0 x 38). 4. Successful angioplasty of right anterior tibial artery with 3.0 balloon History of open heart surgery History of open heart surgery S/P ICD (internal cardiac defibrillator) procedure Family History Other Diabetes Social History Preferred Language: French Communication Ability: Effective Back Stayer Required: Yes Beliefs That Will Affect Care: None marital status: Current Living Situation: Spouse Feels Safe at Home: Yes Safety Concerns: Feels Safe At This Time Smoking Status: Former smoker Tobacco Type: cigarettes ; packs per day: 2 ; Years Smoked: 39 ; Cigarettes Per Day: quit 10 years ago ; Number of Years Since Quit: 10 ; Hx Alcohol Use: Yes (quit 30 years ago) Hx Substance Use: No Review of Systems Review of Systems: All systems reviewed & are unremarkable except as noted in HPI & below Physical Exam Constitutional: WD/WN, vitals as above Eyes: PERRL, conjunctivae normal, anicteric sclerae ENMT: external ear and nose normal, oropharynx normal Neck: normal visual inspection Respiratory: normal respiratory effort, lungs clear to auscultation Cardiovascular: RRR, no murmur, no edema Gastrointestinal (Abdomen): normal bowel sounds, soft, nontender, no hepatosplenomegaly Musculoskeletal: no cyanosis or clubbing, extremities motor strength 5/5 Skin: no rashes, warm and dry + wound (necrotic wound unchanged, less drainage) Psychiatric: A+Ox3, euthymic affect Results & Data ([facility]) Vital Signs (Past 12 Hours) Vital Signs Temp Pulse Pulse Resp BP Pulse Ox 10/16/19 11:26 36.6 C 79 20 105/67 95 10/16/19 07:38 36.4 C L 78 18 124/73 93 10/16/19 04:03 36.6 C 64 18 105/61 94 10/16/19 02:03 69 PG Care Time/CCT Total # of Minutes Spent Total Time Spent with Patient: Total time spent is greater than 50% in coordination of care (as documented) at patient's floor/unit and/or counseling patient: Coding Level of Care Code 25349 Inpt Consult Level 4 Diagnoses Post-operative infection T81.42XA Encounter type: initial encounter Postoperative infection type: deep incisional surgical site (1) Post-operative infection Encounter type: initial encounter Postoperative infection type: deep incisional surgical site Qualified Code(s): T81.42XA - Infection following a procedure, deep incisional surgical site, initial encounter
--- NOTE | 2019-10-16 13:28 | Hospitalist Progress Note ---
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 Noted to have large area of necrosis and a persistent infection in the area. Preoperative and postoperative osteomyelitis and cellulitis s/p amputation of right great toe, not complications of care Nonhealing of the wound secondary to poorly controlled diabetes, noncompliance, underlying severe peripheral vascular disease Patient was discharged on long-term IV antibiotics with IV daptomycin Later was switched to oral doxycycline his symptoms worsen R foot Xray revealed: Status post right first toe amputation. No new areas of cortical destruction to suggest osteomyelitis. Soft tissue swelling at the head of the first MTP joint may be due to postoperative change. CT of right foot with contrast: 1. Postoperative changes of prior amputation of the great toe at the level of the metatarsal phalangeal joint. There is subcutaneous edema with small amount of fluid and adjacent deep tissue air with probable cutaneous ulcer adjacent to the amputation site suggestive of gas forming organism with cellulitis. Deep to the soft tissue findings there is new multifocal cortical irregularity and lucency of the first metatarsal head suggestive of acute osteomyelitis. He received IV daptomycin and IV zosyn while in ED. CRP is reduced from 08/17/19 11.5 to today 0.51; ESR was 85 now 39 wound culture : gram negative bacilli ID consulted: Consult Orthopedist Dr. Petersen appreciate input: Per orthopedics note: We talked about 3 different treatment options at bedside. Option 1 we could leave the wound alone and continue a different regimen of oral antibiotics. I am always hesitant to continue debriding a diabetic foot and if it seems stable or very slowly improving then we may consider antibiotics and observation for now. We can always be more aggressive if his symptoms worsen. We discussed the risk of becoming septic from this approach as well. Option 2 would be to do a debridement in the OR. I would remove the eschar and debride the surrounding edges. I am unsure, however, if this would promote more healing or only set him back. He is an uncontrolled diabetic and I am hesitant to disrupt this wound. Option #3 would be to do a first ray resection. removal of entire first metatarsal. This should eliminate any concerns for osteomyelitis at the head of the first metatarsal. Unfortunately, there is always a chance that this wound does not heal. Dr. Petersen discussed all these options with him. He seems to want to be treated with observation for now and a change in antibiotic regimen. He understands the risks of sepsis with this approach and he also understands that if his symptoms worsen then we may have to proceed with further amputation. Wound culture growing gram-negative bacilli Patient is febrile , normal white count I had a long discussion with patient as well-regarding risk of sepsis, patient is unwilling to stay in the hospital for another day with IV antibiotics treatment, Does not want to be on IV antibiotics on discharge Very adamant /wants to be discharged this afternoon with or without any treatment, Antibiotic adjusted to cefdinir 300 mg p.o. twice daily for 6 weeks Will need close follow-up with Dr. Petersen and at wound care clinic(did not showed up for any of his prior wound clinic appointments) Asked to return to ER with any worsening of symptoms, or fever. (2) Status post amputation of right great toe: s/p R great toe osteomyelitis status post right great toe amputation on 08/18/[address] Petersen Wound culture positive MRSA 08/17 Received IV daptomycin until 10/05 presents with nonhealing right great toe Blood culture this admission: Gram-negative bacilli With discharged home with oral cefdinir 300 mg twice daily for 6 weeks (3) PAD (peripheral artery disease): History of angioplasty to RLE "Successful right common iliac artery stenting with 2 overlapping covered stents (Lifestream 9.0 x 38, 9.0 x 38). Successful angioplasty of right anterior tibial artery with 3.0 balloon" by Dr. Ken Continue Coumadin and Plavix for [address] Ken (4) CAD (coronary artery disease): No chest pain or shortness of breath Continue losartan, carvedilol, Plavix (5) CHF (congestive heart failure): Chronic systolic CHF secondary to ischemic cardiomyopathy Last echo 08/2019 revealed EF of 40% Euvolemic on exam, on dry side Continue losartan, Aldactone AICD in place Continue outpatient meds (6) Left ventricular aneurysm: On long-term warfarin, INR 1.5 Coumadin resumed (7) Diabetes: Last A1c 9.4 08/17/2019 Lantus/NovoLog per protocol With hemoglobin A1c 7.8 Recommend tight control for wound healing (8) Anemia: H&H stable at 12.6 and 39.0 Monitor (9) CKD (chronic kidney disease) stage 3, GFR 30-59 ml/min: cr 1.09 bun 34/creatinine 1.09 with ratio 31.6 Patient has been taking 40 mg Lasix daily ( prescribed prn for 2lb weight gain) Resumed Lasix as per prior dose (10) DVT prophylaxis: heparin Disposition: Patient is discharged home today Follow up: PCP Dr. Segura /orthopedics Dr. Petersen, wound care clinic follow-up Admission and Anticipated Discharge Date Admission Date: October 15, 2019 Subjective no complain of pain or discomfort on rt great toe amputation site no fever or chills wants to be discharged home today with antibiotics no surgical debridement or procedure planned by ortho out pt follow up with Dr Petersen and wound clinic Review of Systems Review of Systems: All systems reviewed & are unremarkable except as noted in HPI & below Physical Exam Constitutional: WD/WN, vitals as above Eyes: PERRL, conjunctivae normal, anicteric sclerae ENMT: external ear and nose normal, oropharynx normal Neck: trachea midline, no thyromegaly Respiratory: normal respiratory effort, lungs clear to auscultation Cardiovascular: RRR, no murmur, no edema Gastrointestinal (Abdomen): normal bowel sounds, soft, nontender, no hepatosplenomegaly Musculoskeletal: s/p rt great toe amputation , non healing surgical open wound site with black eschar /no active drainage Neurologic: PERRL, EOMI, accommodation nl, no face palsy, no dysarthria Psychiatric: A+Ox3, euthymic affect Results & Data ([facility]) Vital Signs (Past 12 Hours) Vital Signs Temp Pulse Pulse Resp BP Pulse Ox 10/16/19 11:26 36.6 C 79 20 105/67 95 10/16/19 09:30 68 10/16/19 07:38 36.4 C L 78 18 124/73 93 10/16/19 04:03 36.6 C 64 18 105/61 94 10/16/19 02:03 69
[2019-10-16 13:38] VITALS: PULSE 79
[2019-10-16 13:38] LABS: Estimated Average Glucose 177 mg/dl; Hemoglobin A1C 7.8 % (4.5-5.6)
[2019-10-16] MEDS ORDERED: DAPTOmycin 450 MG in SYRINGE 0 ML IV SCH (15:00)
--- NOTE | 2019-10-17 07:45 | Discharge Summary ---
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 Of significance patient hospitalized 08/17 to 08/24/2019 secondary to right great toe osteomyelitis and acute PAD. During hospitalization he underwent angioplasty to right anterior tibial artery and r ight common iliac artery by Dr. Ken. He also underwent amputation of right great toe on 08/18/[address] Sierra. Wound culture grew positive MRSA and he was placed on IV antibiotics. PICC line was in place and he received IV Dapto for 7 weeks until 10/05/2019. He followed up with Dr. Sierra as well as Dr. Martin as outpatient. Unfortunately he had inadequate wound healing and continues to have open wound with eschar in place. He was seen by Dr. Martin in clinic today who recommended ED evaluation due to chronic nonhealing wound and concern for need for further surgery. He does elicit that he has had purulent drainage from site for the past 3 days as well as increased rounding redness and warmth. He denies any significant pain. He denies any fever, chills, sweats, lightheadedness, dizziness, chest pain, shortness breath, palpitations, nausea, vomiting, abdominal pain. His last BM was this morning and normal. Denies hematochezia. He is urinating without difficulty. He has been taking medication as prescribed. When his IV daptomycin was discontinued he was transitioned to oral doxycycline 100 mg twice a day which he has been compliant with. Last dose was this morning. He remains on long-term warfarin therapy secondary to left ventricular aneurysm on warfarin 10 mg daily. INR is subtherapeutic today. He is also on a regimen of warfarin and Plavix secondary to recent right lower extremity angioplasty. Plan is to remain on warfarin and Plavix for 3 months and transition to warfarin and aspirin. His appetite has been stable and he denies any weight gain. His last admission he states his weight went from 206 to 198. In ED patient remained hemodynamically stable. He was afebrile. WBC 5.27, ESR 39, CRP 0.51, pro-Wesley WNL, glucose 248, BUN 34, creatinine 1.09, INR 1.5, H&H 12.6 and 39.0 R foot Xray revealed: Status post right first toe amputation. No new areas of cortical destruction to suggest osteomyelitis. Soft tissue swelling at the head of the first MTP joint may be due to postoperative change. He received IV daptomycin and IV zosyn while in ED. CRP is reduced from 08/17/19 11.5 to today 0.51; ESR was 85 now 39 wound culture and blood culture is pending. Principal Diagnosis RIGHT GREAT TOE NON HEALING DIABETIC FOOT WOUND OSTEOMYELITIS OF IST METATARSAL Discharge Exam Constitutional WD/WN, vitals as above Eyes PERRL, conjunctivae normal, anicteric sclerae ENMT external ear and nose normal, oropharynx normal Neck trachea midline, no thyromegaly Respiratory normal respiratory effort, lungs clear to auscultation Cardiovascular RRR, no murmur, no edema Gastrointestinal (Abdomen) normal bowel sounds, soft, nontender, no hepatosplenomegaly Neurologic PERRL, EOMI, accommodation nl, no face palsy, no dysarthria Psychiatric A+Ox3, euthymic affect Discharge Data Allergies Allergy/AdvReac Type Severity Reaction Status Date / Time No Known Drug Allergies Allergy Verified 10/15/19 13:24 Consultations 10/15/19 14:53 ED Decision to Admit Stat 10/15/19 15:10 Consult Infectious Diseases Routine 10/15/19 16:23 Consult Case Management - Discharge Planning Routine Consult Orthopedic Surgery Routine Ordered Studies 10/15/19 16:37 CT foot RT w con Routine Hospital Course (1) Open wound of right great toe: This is a 74-year-old male with significant PMH of 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 Noted to have large area of necrosis and a persistent infection in the area. Preoperative and postoperative osteomyelitis and cellulitis s/p amputation of right great toe, not complications of care Nonhealing of the wound secondary to poorly controlled diabetes, noncompliance, underlying severe peripheral vascular disease Patient was discharged on long-term IV antibiotics with IV daptomycin Later was switched to oral doxycycline his symptoms worsen R foot Xray revealed: Status post right first toe amputation. No new areas of cortical destruction to suggest osteomyelitis. Soft tissue swelling at the head of the first MTP joint may be due to postoperative change. CT of right foot with contrast: 1. Postoperative changes of prior amputation of the great toe at the level of the metatarsal phalangeal joint. There is subcutaneous edema with small amount of fluid and adjacent deep tissue air with probable cutaneous ulcer adjacent to the amputation site suggestive of gas forming organism with cellulitis. Deep to the soft tissue findings there is new multifocal cortical irregularity and lucency of the first metatarsal head suggestive of acute osteomyelitis. He received IV daptomycin and IV zosyn while in ED. CRP is reduced from 08/17/19 11.5 to today 0.51; ESR was 85 now 39 wound culture : gram negative bacilli ID consulted: Consult Orthopedist Dr. Sierra appreciate input: Per orthopedics note: We talked about 3 different treatment options at bedside. Option 1 we could leave the wound alone and continue a different regimen of oral antibiotics. I am always hesitant to continue debriding a diabetic foot and if it seems stable or very slowly improving then we may consider antibiotics and observation for now. We can always be more aggressive if his symptoms worsen. We discussed the risk of becoming septic from this approach as well. Option 2 would be to do a debridement in the OR. I would remove the eschar and debride the surrounding edges. I am unsure, however, if this would promote more healing or only set him back. He is an uncontrolled diabetic and I am hesitant to disrupt this wound. Option #3 would be to do a first ray resection. removal of entire first metatarsal. This should eliminate any concerns for osteomyelitis at the head of the first metatarsal. Unfortunately, there is always a chance that this wound does not heal. Dr. Sierra discussed all these options with him. He seems to want to be treated with observation for now and a change in antibiotic regimen. He understands the risks of sepsis with this approach and he also understands that if his symptoms worsen then we may have to proceed with further amputation. Wound culture growing gram-negative bacilli Patient is febrile , normal white count I had a long discussion with patient as well-regarding risk of sepsis, patient is unwilling to stay in the hospital for another day with IV antibiotics treatment, Does not want to be on IV antibiotics on discharge Very adamant /wants to be discharged this afternoon with or without any treatment, Antibiotic adjusted to cefdinir 300 mg p.o. twice daily for 6 weeks Will need close follow-up with Dr. Sierra and at wound care clinic(did not showed up for any of his prior wound clinic appointments) Asked to return to ER with any worsening of symptoms, or fever. (2) Status post amputation of right great toe: s/p R great toe osteomyelitis status post right great toe amputation on 08/18/[address] Sierra Wound culture positive MRSA 08/17 Received IV daptomycin until 10/05 presents with nonhealing right great toe Blood culture this admission: Gram-negative bacilli With discharged home with oral cefdinir 300 mg twice daily for 6 weeks (3) PAD (peripheral artery disease): History of angioplasty to RLE "Successful right common iliac artery stenting with 2 overlapping covered stents (Lifestream 9.0 x 38, 9.0 x 38). Successful angioplasty of right anterior tibial artery with 3.0 balloon" by Dr. Ken Continue Coumadin and Plavix for [address] Ken (4) CAD (coronary artery disease): No chest pain or shortness of breath Continue losartan, carvedilol, Plavix (5) CHF (congestive heart failure): Chronic systolic CHF secondary to ischemic cardiomyopathy Last echo 08/2019 revealed EF of 40% Euvolemic on exam, on dry side Continue losartan, Aldactone AICD in place Continue outpatient meds (6) Left ventricular aneurysm: On long-term warfarin, INR 1.5 Coumadin resumed (7) Diabetes: Last A1c 9.4 08/17/2019 Lantus/NovoLog per protocol With hemoglobin A1c 7.8 Recommend tight control for wound healing (8) Anemia: H&H stable at 12.6 and 39.0 Monitor (9) CKD (chronic kidney disease) stage 3, GFR 30-59 ml/min: cr 1.09 bun 34/creatinine 1.09 with ratio 31.6 Patient has been taking 40 mg Lasix daily ( prescribed prn for 2lb weight gain) Resumed Lasix as per prior dose (10) DVT prophylaxis: heparin Disposition: Patient is discharged home today Follow up: PCP Dr. Segura /orthopedics Dr. Sierra, wound care clinic follow-up Total Time Total Time Spent Total Time Spent (In Minutes): 35 minutes Total Time Includes: Examination of the Patient, Discharge Planning, Medication Reconciliation and Communication With Other Providers Discharge Plan Discharge Items Patient Disposition: Home - Self-Care Reason For Visit: R GREAT TOE WOUND S/P R GREAT TOE AMP,?OSTEOMYELIT Discharge Diagnosis: RIGHT GREAT TOE NON HEALING DIABETIC FOOT WOUND OSTEOMYELITIS OF IST METATARSAL Activity: Per Instructions section Activity Comment: PARTIAL WEIGHT BEARING ON RIGHT FOOT TOLERATED Weightbearing: Right partial Non-emergency contact: Primary Care Provider Call non-emergency contact if: you have any medication questions Follow-up/Referrals: Savage Sierra DO [Physician] - (IN 2 WEEKS ) Mikey Segura DO [Primary Care Provider] - 10/21/19 9:45 am (Apt with Dallin Flores ) Diet: Carb Consistent or DM2 and Heart Healthy Addtl Attending Provider Instructions: FOLLOW UP WITH DR SIERRA IN CLINIC IN 2 WEEKS PLEASE RETURN TO ER WITH ANY EVIDENCE OF REDNESS , SWELLING , PAIN OR DISCOMFORT AROUND YOUR LEFT FOOT SURGICAL WOUND AREA COME TO ER OR NOTIFY YOUR FAMILY PHYSICIAN WITH ANY FEVER /CHILLS THESE COULD BE EARLY SIGNS OF PROGRESSION OF WOUND INFECTION WITH ANY EVIDENCE OF INFECTION YOU WILL NEED TO COME TO ER FOR HOSPITAL ADMISSION FOR TREATMENT WITH IV ANTIBIOTICS AND POSSIBLE SURGERY ON YOUR LEFT FOOT TAKE PROBIOTICS /LACTOBACILLUS TWICE DAILY WHILE TAKING ANTIBIOTICS FOR LEFT FOOT INFECTION -TO PREVENT ANTIBIOTIC INDUCED DIARRHEA /C DIFF INFECTION NEW ANTIBIOTIC: CEFDINIR 300 MG 1 TABLET TWICE DAILY FOR 6 WEEKS ( INFECTION IN BONE ) FOLLOW UP AT WOUND CLINIC IN A WEEK , OFFICE WILL CALL WITH APPOINTMENT ADDRESS : [address] [place] [id number] Pending Studies at Discharge: No Stand-Alone Forms: My Jamn, Smoking Cessation Medications and DC Order Prescriptions: New cefdinir 300 mg capsule 300 mg PO BID 42 Days Qty: 84 RF: 0 Continued carvedilol 3.125 mg Tablet 3.125 mg PO BIDM RF: 0 losartan 25 mg tablet 25 mg PO QAM RF: 0 furosemide 40 mg tablet 40 mg PO QAM PRN (Reason: WEIGHT GAIN/FLUID RETENTION) RF: 0 spironolactone 25 mg tablet 25 mg PO QAM RF: 0 Lantus Solostar U-100 Insulin 100 unit/mL (3 mL) insulin pen 40 unit SUBCUT HS RF: 0 warfarin 5 mg tablet 10 mg PO PM RF: 0 clopidogrel 75 mg Tablet 75 mg PO QAM 30 Days Qty: 30 RF: 3 Discontinued doxycycline monohydrate 100 mg capsule 100 mg PO BID Qty: 60 RF: 3 Discharge Orders: Discharge Order (Routine); Ordered 10/16/19 Ordered By: Cynthia Enrique/Other Patient Handouts: Diabetes Treat Severe Foot Infecs, Diabetes Keep Feet Healthy, Diabetes Inspect Feet, Diabetic Foot Ulcer Dc, Diabetes Foot Care Program, Foot Care Diabetes Steps Admission Data Admit Date/Time: 10/15/19 15:10 Attending Provider: Cynthia Green Admit Provider: Federico Swift Primary Care Provider: Mikey Segura V. Other Providers: Alka Martin ; Federico Swift ; Savage Sierra Other Interventions: Discharge Summary Assessment (RN) Last Done: 10/16/19 15:16 DC Date/Time DO NOT enter until pt leaves facility: 10/16/19 17:24
== END 2019-10-16 17:24 | disposition home or self-care (01) | DRG 638 ==
LOC: ED 12:26 → SUATTDRO 15:10 → 2W 15:10

== ENCOUNTER 2019-12-17 08:45 | Observation (INO) ==
--- NOTE | 2019-12-16 10:58 | Anesthesiology Consultation ---
Date of Service December 16, 2019 Assessment & Plan (1) Encounter for pre-operative examination: S/P R great toe amputation 08/18/19. LMA #5, no complications, VSS in PACU. Conditions "stable" at cardiology office visit 09/29/19. CHECK BSG, PT/INR AM DOS Chart Review Chart Review: Acceptable Risk for Surgery and Patient NOT seen in Pre Admission Testing Consults Requested none ASA ASA4 Proposed Anesthesia Anesthesia Type: General Risk / Benefits Reviewed With: PT / POA / Parent / Guardian, Accepts Plan and Informed Consent Obtained History Surgery Operation Date: 12/17/19 10:30 Proposed Procedures p Right Foot First Ray Amputation - Savage Petersen DO Height/Weight Height: 5 ft 11 in Weight: 86.183 kg Allergies Allergy/AdvReac Type Severity Reaction Status Date / Time No Known Drug Allergies Allergy Verified 12/16/19 08:56 Medications Home Medications Medication Instructions Recorded Confirmed Last Taken Lantus Solostar U-100 Insulin 40 unit SUBCUT HS 08/17/19 12/17/19 12/16/19 21:00 carvedilol 3.125 mg PO BIDM 08/17/19 12/17/19 12/16/19 18:00 furosemide 40 mg PO QAM PRN 08/17/19 12/17/19 12/16/19 06:00 losartan 25 mg PO QAM 08/17/19 12/17/19 12/17/19 06:00 spironolactone 25 mg PO QAM 08/17/19 12/17/19 12/16/19 06:00 warfarin 10 mg PO PM 08/17/19 12/17/19 12/07/19 clopidogrel 75 mg PO QAM 30 Days #30 tab 08/23/19 12/17/19 12/16/19 06:00 tramadol 50 mg tablet 50 mg PO TID PRN #30 tab 12/08/19 12/16/19 Unknown NPO Date Last Intake of Fluids: 12/17/19 Time Last Intake of Fluids: 00:00 Date Last Intake of Solids: 12/17/19 Time Last Intake of Solids: 00:00 Past Medical History Medical History Abnormal EKG Diffuse deep T wave inversions in the anterior lateral precordial leads, age- indeterminate inferior infarction with inferior T wave inversions -- unchanged compared to the prior performed as an outpatient on 08/13/2017 (scanned to EMR) Amputation of right great toe 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 His ejection fraction at the time of that procedure was in the range of 20% EF roughly 40% on echo 08/2019. Left ventricular aneurysm s/p resection 2011 On anticoagulant therapy Osteomyelitis PAD (peripheral artery disease) (Chronic) Poor historian Exercise / Class Metabolic Activity III < 4 Walking/Shop/Light housework Past Family History Family History Other Diabetes Past Surgical History Surgical History History of adenoidectomy History of amputation of great toe R great toe amp by Dr. Petersen 08/18/19. LMA #5, atraumatic. VSS in PACU. No complications. History of angioplasty of peripheral vessel 08/21/2019 Summary: 1. Right lower [id number] to 90% heavily calcified proximal common iliac stenosis, mild to moderate diffuse SFA/popliteal disease, subtotally occluded anterior tibial artery, occluded posterior tibial artery. 2. 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 Successful right common iliac artery stenting with 2 overlapping covered stents (Lifestream 9.0 x 38, 9.0 x 38). 4. Successful angioplasty of right anterior tibial artery with 3.0 balloon History of cardiac cath no intervention History of cataract surgery bilateral History of esophagogastroduodenoscopy (EGD) History of open heart surgery History of open heart surgery 12 years ago, [facility] History of tonsillectomy S/P ICD (internal cardiac defibrillator) procedure Past Anesthesia History No Hx of Anesthesia Complications and No Family Hx of Anesthesia Complications History of PONV No Hx of PONV and No Hx of Motion Sickness Social History Smoking Status: Former smoker tobacco type: cigarettes Smoking cigarettes per day: 12 year quit Do You Dip or Chew Tobacco: No Hx Alcohol Use: No Hx Substance Use: No substance use type: does not use Physical Exam Vital Signs Last Vital Signs Temp 97.5 F L 12/17/19 09:25 Pulse 68 12/17/19 09:25 Resp 18 12/17/19 09:25 BP 176/79 H 12/17/19 09:25 Pulse Ox 97 12/17/19 09:25 ENMT Mouth: + dentures Thyromental Distance: > or= 3.5 Finger Breadths Mallampati Class: II Neck normal visual inspection Respiratory normal respiratory effort Auscultation: lungs clear to auscultation bilaterally Cardiovascular Rate/Rhythm: regular rate and regular rhythm Testing Laboratory Results PT 14.4 Seconds (9.0-12.0) H 12/17/19 09:14 INR 1.4 (0.9-1.1) H 12/17/19 09:14 APTT 32.5 Seconds (21.0-31.0) H 12/17/19 09:14 12/17/19 09:05 POC Glucose 126 H 12/15/19 WBC: 5.65 H/H: 12.9/40.0% PLATELETS: 160 SODIUM: 137 POTASSIUM: 4.5 CHLORIDE: 100 CO2: 33 BUN: 49 CREATININE: 1.54 GLUCOSE: 299 PT: 17.0 PTT: 34.4 INR: 1.7 10/16/19 A1C: 7.8% Electrocardiogram Date: 08/18/19 Findings: + NSR @ (72bpm with 1st degree AV block) Left axis deviation Anterior infarct , age undetermined ST & Marked T wave abnormality, consider lateral ischemia. *No significant change from 2018 EKG from S scanned to EMR Chest X-Ray Date: 08/17/19 FINDINGS: Left subclavian implanted cardiac defibrillator with single lead to the right ventricular apex. Median sternotomy wires. Atherosclerosis of the aortic arch. Cardiac silhouette moderately enlarged. Mild pulmonary vascular prominence. Lungs may be mildly hyperinflated. No focal opacity. No large effusion or pneumothorax. Degenerative changes of the thoracic spine. Upper abdomen normal. IMPRESSION: 1. Cardiomegaly with mild volume overload. No advanced congestive change or pulmonary edema. Echocardiogram Date: 08/19/19 EF: ~40% Technically limited study. Grossly normal valvular structure and function. The patient has a h/o previously resected LV aneurysm. The best estimate of the LV EF is somewhere around 40%. The quality of the study is limited but it appears that he has an outpocketing past the papillary muscle along the septum which most likely represents the previous resection. The RV systolic function is normal. Other Testing Device Check 09/29/19 Model: Silent Edge Implanted: 06/26/12 Battery: 2.75v Mode: VVI Pacin% paced Shocks: none VT/VF episodes: 1 (09/07/19), 10 beats nonsustained Impression: normal ICD function.
--- NOTE | 2019-12-16 14:26 | History & Physical Report ---
Date of Service December 16, 2019 Assessment & Plan (1) Cellulitis of foot, right: He is a poorly controlled diabetic with an A1c of 7.8. He continues to have wound complications on his right foot. He is failed extensive conservative treatment including months of wound care and oral antibiotics. He has elected to proceed with a partial first ray resection. If we do not resect the first ray of the infection may procedure his bloodstream and he may become septic. We are in the middle the coronavirus pandemic and at this point I feel the morbidity of not proceeding with with the procedure outweighs the morbidity of the coronavirus. He understands the risks and would like to proceed. We will proceed with a first ray resection. He understands the risks, benefits, and alternatives to procedure. He will likely be kept overnight in the hospital on IV antibiotics and discharged home the following day if the wound looks good. Present on Admission?: Yes History of Present Illness Chief Complaint: Cellulitis of the right foot with wound complications Primary Care Provider: DO Miguel Ángel Koch is a 74-year-old male who underwent a podiatry procedure in July 2019. Unfortunately, after the procedure he developed a bad infection of the distal aspect of his right great toe. He came to the hospital and I did MTP amputation of his right great toe. I tried to preserve the head of the metatarsal. Unfortunately the wound on the distal end of the metatarsal never fully healed. It has stayed open and has done persistent draining. He has been through several months of wound care without much relief. He has tried several different antibiotics and he is having significant reactions from the antibiotics such as severe GI disorders. After failing extensive conservative treatment, he has elected to proceed with a first ray resection of the right foot. Allergies Allergy/AdvReac Type Severity Reaction Status Date / Time No Known Drug Allergies Allergy Verified 12/16/19 08:56 Home Medications Home Medications Medication Instructions Recorded Confirmed Type Lantus Solostar U-100 Insulin 40 unit SUBCUT HS 08/17/19 12/16/19 History carvedilol 3.125 mg PO BIDM 08/17/19 12/16/19 History furosemide 40 mg PO QAM PRN 08/17/19 12/16/19 History losartan 25 mg PO QAM 08/17/19 12/16/19 History spironolactone 25 mg PO QAM 08/17/19 12/16/19 History warfarin 10 mg PO PM 08/17/19 12/16/19 History clopidogrel 75 mg PO QAM 30 Days #30 tab 08/23/19 12/16/19 Rx tramadol 50 mg tablet 50 mg PO TID PRN #30 tab 12/08/19 12/16/19 Rx Past Med/Surg History Medical History Abnormal EKG Diffuse deep T wave inversions in the anterior lateral precordial leads, age- indeterminate inferior infarction with inferior T wave inversions -- unchanged compared to the prior performed as an outpatient on 08/13/2017 (scanned to EMR) Amputation of right great toe 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 His ejection fraction at the time of that procedure was in the range of 20% EF roughly 40% on echo 08/2019. Left ventricular aneurysm s/p resection 2011 On anticoagulant therapy Osteomyelitis PAD (peripheral artery disease) (Chronic) Poor historian Surgical History History of adenoidectomy History of amputation of great toe R great toe amp by Dr. Petersen 08/18/19. LMA #5, atraumatic. VSS in PACU. No complications. History of angioplasty of peripheral vessel 08/21/2019 Summary: 1. Right lower [id number] to 90% heavily calcified proximal common iliac stenosis, mild to moderate diffuse SFA/popliteal disease, subtotally occluded anterior tibial artery, occluded posterior tibial artery. 2. Left lower extremitycalcified, mild diffuse iliac/[employer] disease 3. Successful right common iliac artery stenting with 2 overlapping covered stents (Lifestream 9.0 x 38, 9.0 x 38). 4. Successful angioplasty of right anterior tibial artery with 3.0 balloon History of cardiac cath no intervention History of cataract surgery bilateral History of esophagogastroduodenoscopy (EGD) History of open heart surgery History of open heart surgery 12 years ago, [facility] History of tonsillectomy S/P ICD (internal cardiac defibrillator) procedure Family History Other Diabetes Social History Preferred Language: Serbian Communication Ability: Effective Meat Boner And Slicer Required: No Beliefs That Will Affect Care: None marital status: Current Living Situation: Spouse Feels Safe at Home: Yes Smoking Status: Former smoker Tobacco Type: cigarettes ; packs per day: 2 ; Cigarettes Per Day: 12 year quit ; Number of Years Since Quit: 10 ; Second Hand Exposure: No ; Hx Alcohol Use: No Hx Substance Use: No Review of Systems Review of Systems: All systems reviewed & are unremarkable except as noted in HPI & below Physical Exam Constitutional: WD/WN, vitals as above Eyes: PERRL, conjunctivae normal, anicteric sclerae ENMT: external ear and nose normal, oropharynx normal Neck: trachea midline, no thyromegaly Respiratory: normal respiratory effort Cardiovascular: RRR, no murmur, no edema Gastrointestinal (Abdomen): normal bowel sounds, soft, nontender, no hepatosplenomegaly Musculoskeletal: On physical examination of the right foot, there is a 3 cm ulceration at the end of the first metatarsal. There is a little bit of drainage. The metatarsal head is not exposed but it is almost exposed. There is some purulent material at the inferior aspect of the wound. There is no streaking erythema. His overall skin quality looks pretty good. Psychiatric: A+Ox3, euthymic affect PG Care Time/CCT Total # of Minutes Spent Total Time Spent with Patient: Total time spent is greater than 50% in coordination of care (as documented) at patient's floor/unit and/or counseling patient: Coding Level of Care Code 21146 Initial Inpt Care Lvl 3 Diagnoses Cellulitis of foot, right L03.115
[~2019-12-17 08:45] MED LIST: CEFAZOLIN 2000MG 2,000 MG/15 ML SYR IV SCH; LR 15ML/HR IV SCH; LR 60ML/HR IV SCH
[2019-12-17 09:46] LABS: INR 1.4 (0.9-1.1); Partial Thromboplastin Ratio 1.2; Partial Thromboplastin Time 32.5 Seconds (21.0-31.0); Prothrombin Time 14.4 Seconds (9.0-12.0)
[2019-12-17] MEDS ORDERED: LIDOCAINE HCL 2% 2 ML VIAL/AMP(20MG/ML) INFIL ONE (09:49)
[2019-12-17] MEDS ORDERED: MIDAZOLAM HCL 1 MG/ML 2ML VIAL ONE (09:49)
[2019-12-17] MEDS ORDERED: PROPOFOL IV EMULSION 10 MG/ML 20 ML VIAL IV ONE (09:49)
[2019-12-17] MEDS ORDERED: fentaNYL citrate 100 MCG/2 ML VIAL ONE (09:49)
[2019-12-17] MEDS ORDERED: ATROPINE SULFATE 0.1 MG/ML 10ML SYR IV PRN (10:01)
[2019-12-17] MEDS ORDERED: ONDANSETRON INJ 2 MG/ML 2 ML VIAL IV PRN (10:01)
[2019-12-17] MEDS ORDERED: ePHEDrine sulfate 50 MG/ML AMP IV PRN (10:01)
[2019-12-17] MEDS ORDERED: ONDANSETRON INJ 2 MG/ML 2 ML VIAL ONE (10:06)
--- NOTE | 2019-12-17 10:26 | History & Physical Bridge Note ---
Date of Service December 17, 2019 History & Physical Bridge Note I have examined the patient, reviewed the History & Physical and in the interval since the performance of the History & Physical I have noted the following changes of clinical significance: no changes noted
[2019-12-17] MEDS ORDERED: ePHEDrine sulfate 50 MG/ML SYR ONE (10:49)
[2019-12-17] MEDS ORDERED: BUPIVACAINE/EPINEPHRINE 0.25% 1:200,000 30 ML VIAL ONE (11:03)
--- NOTE | 2019-12-17 11:54 | Fluoroscopy Report ---
FL foot RT 2V CLINICAL HISTORY: Amputation. COMPARISON STUDY: Right foot radiographs and CT of the right foot October 15, 2019. FLUOROSCOPY TIME: 6.9 seconds. FLUOROSCOPIC IMAGES: 1 FINDINGS: Fluoroscopy was provided for right first digit amputation. Note is made of a surgical instr ument directed over the medial cortex of the proximal shaft of the right first metatarsal. IMPRESSION: Fluoroscopy provided for amputation. ACT 112: Negative or not required by law. Electronically signed by: Mack Ashton M.D. 12/17/2019 11:52 AM
--- NOTE | 2019-12-17 12:22 | Operative Report ---
PG Post Operative Report Pre & Post Diagnosis Operation Date: 12/17/19 10:30 Pre-Op Diagnosis: Non Healing Wound Right Foot Post-Op Diagnosis: Non Healing Wound Right Foot I identified the patient and participated in the time-out.: Yes Procedure Operation Date: 12/17/19 10:30 Actual Procedures p Right Foot partial first Ray Amputation(Right) - Savage Petersen DO Surgeon Savage Petersen DO Dominatrix Savage Rossi PAC Estimated Blood Loss 20 Findings Consistent with Post-Op Diagnosis Specimens 4 soft tissue cultures Complications none Disposition Disposition: Recovery Room Indications Miguel Ángel is a pleasant 74-year-old male who had a podiatry procedure about 6 months ago. Unfortunately he developed an infection of his great toe. He underwent a great toe amputation at the MTP joint about 4 months ago. Unfortunately the wound never healed well. He continued to drain. He tried wound care as well as extensive antibiotics. The wound was not healing and he was started to have side effects from the antibiotics. After long discussions, he elected to proceed with a partial first ray resection. Description of Procedure On December 17, 2019 he arrived at [facility] for the above procedure. He was seen in the preoperative holding area and the operative extremity was identified and signed. He was given a preoperative antibiotic and taken back to the operating room. He was laid on the table in supine position. He was put under general anesthesia. The right foot was prepped and draped in sterile fashion. A timeout was done. The patient and the operative extremity was properly identified. A racquet incision was made around the ulcer and extending up the first metatarsal shaft. Dissection was taken down directly to the bone. Large soft tissue flaps were elevated off the first metatarsal and around the metatarsal head. The sesamoids were excised. Fluoroscopy was used to determine a starting point for the first ray resection. The distal two thirds of the first ray was then resected with an oblique cut line. The edges of the remaining proximal metatarsal were smoothed with a rasp. Time was spent doing an extensive debridement and removing any bulkiness of excess tissue. Skin edges were all sharply dissected back to bleeding edges. The wound was irrigated with normal saline solution with pulse lavage. The tourniquet was deflated and I was able to get good bleeding throughout the entire amputation site. If I would have only close the skin layer there would have been a large space from the vacant metatarsal head. I decided to place some deep Vicryl sutures to close down the space. The skin was then closed with 3-0 nylon in a horizontal mattress fashion. The surrounding soft tissues were injected with 30 cc of Marcaine with epinephrine. A soft dressing was placed. He was then extubated and transferred to a [facility]. He was taken to the postanesthesia care unit in stable condition. He tolerated the procedure well. I attest to the content of the Intraoperative Record and any orders documented therein. Any exceptions are noted below.
[2019-12-17] MEDS: fentaNYL citrate 100 MCG/2 ML VIAL IV PRN ×4 (12:35→12:50)
--- NOTE | 2019-12-17 12:57 | Anesthesiology Progress Note ---
Date of Service December 17, 2019 Anesthesia Post Procedure Vital Signs Vital Signs: Temp Pulse Resp BP Pulse Ox 12/17/19 12:50 68 16 155/75 H 96 12/17/19 12:40 65 18 166/69 H 100 12/17/19 12:30 96.8 F L 98 H 16 165/72 H 100 12/17/19 09:25 97.5 F L 68 18 176/79 H 97 Pain Intensity Right Foot: Pain Intensity: 5 Transfer of Care Handoff Completed per policy Notes Mental Status: alert / awake / arousable and participated in evaluation Patient Amnestic to Procedure: Yes Nausea / Vomiting: adequately controlled Pain: adequately controlled Airway Patency, RR, SpO2: stable & adequate BP & HR: stable & adequate Hydration State: stable & adequate Anesthetic Complications: no major complications apparent and Pt Satisfied with anesthetic care
[2019-12-17] MEDS ORDERED: TRAMADOL HCL 50 MG TABLET PO PRN (13:34)
[2019-12-17] MEDS ORDERED: METOCLOPRAMIDE HCL INJ 5 MG/ML 2 ML VIAL IV PRN (13:34)
[2019-12-17] MEDS ORDERED: HYDROmorphone INJ 0.5 MG/0.5 ML SYR IV PRN (13:34)
[2019-12-17] MEDS ORDERED: FUROSEMIDE 40 MG TAB PO PRN (13:34)
[2019-12-17] MEDS ORDERED: NALOXONE HCL 0.4 MG/1 ML VIAL/CARP IV PRN (13:34)
[2019-12-17] MEDS ORDERED: PHARMACY GLYCEMIC MGMT CONSULT PRN (13:47)
[2019-12-17] MEDS: OXYCODONE HCL IR 5 MG TAB (IMMEDIATE RELEASE) PO PRN (14:12)
[2019-12-17] MEDS: KETOROLAC TROMETHAMINE 15 MG/ML VIAL IV SCH ×2 (14:13→20:06)
[2019-12-17] MEDS: SODIUM CHLORIDE 0.9% 1000ML 1,000 ML IV SCH ×2 (14:13→23:29)
--- NOTE | 2019-12-17 14:28 | Pharmacy Report ---
Glycemic Control Consultation - Date of Service December 17, 2019 - Scope Scope: Glycemic Pharmacist consulted for glycemic control and to write orders per [facility] inpatient glycemic control protocol. - Objective Weight: 86.183 kg Accuchecks BSG (last 24hrs): 12/17/19 12/17/19 12/17/19 09:05 12:36 13:46 POC Glucose 126 H 114 H 108 H - Recent Pertinent Medications Outpatient Anti-diabetic Regimen: * Lantus 40 units SQ HS * A1c = 7.8% on 10/16/2019 Risk Factors for Insulin Resistance: * IVF: * LR @ 60 cc/hr * NS @ 100 cc/hr * Recent Surgery: * POD #0 s/p Right Foot First Ray Amputation * Diet: * T2DM - Assessment & Plan Assessment & Plan: ASSESSMENT: * 74 yo M admitted for a Right Foot First Ray Amputation today * Patient's A1c has decreased from 9.4% in August 2019 to 7.8% in October 2019. Will not reorder an A1c as previous is at goal and within 3 months. * Patient received 40 units of Lantus last evening. Was NPO this AM. T2DM started for this evening. * Pre-op BSG was 126 mg/dL; Post-op BSG was 114 mg/dL * Will start Lantus and Novolog based on preadmission data which is close to weight and stress of 2. PLAN FOR INPATIENT GLYCEMIC CONTROL: * Basal insulin * Lantus 30 units SQ HS * Bolus insulin * NovoLog per scale ACHS or Q6hrs while NPO * Goal Range: Low 110 mg/dL - High 140 mg/dL * Correction Factor: 25 mg/dL/unit * Nutritional / Prandial insulin per carb ratio of 1 unit per 8 grams CHO consumed * Please note that the plan above was derived based on current level of insulin resistance and hospital stress. These recommendations are appropriate for inpatient admission only. Plan of care upon discharge will need to be reassessed to avoid potential outpatient hypo/hyperglycemia. Thank you.
[2019-12-17] MEDS ORDERED: GLUCOSE 10 TABS/TUBE PO PRN (14:30)
[2019-12-17] MEDS ORDERED: GLUCAGON FOR INJ 1 MG VIAL IM PRN (14:30)
[2019-12-17] MEDS ORDERED: DEXTROSE 50% 50 ML SYRINGE IV PRN (14:30)
[2019-12-17] MEDS ORDERED: GLUCOSE 40% GEL 15 GM TUBE PO PRN (14:30)
--- NOTE | 2019-12-17 15:04 | Orthopedic Progress Note ---
Date of Service December 17, 2019 Assessment & Plan (1) Open wound of right great toe: Overall he is doing fairly well. He is not having much pain. He is on Coumadin and Plavix. We will keep him on 24 hours of IV Ancef postoperatively then likely discharge him to home on Bactrim. He will probably be on the antibiotics for 2 weeks. I will see him in the office in 2 weeks to remove his stitches. Present on Admission?: Yes Subjective Miguel Ángel was seen and examined at bedside postoperatively. He is doing well and is not having much pain. He is happy the procedure was over. He is already been up and ambulating to the bathroom. He has no new complaints. Physical Exam Musculoskeletal: On physical examination of the right foot, the dressing is clean and dry. There is no drainage. His right foot is elevated. Results & Data ([facility]) Vital Signs (Past 12 Hours) Vital Signs Temp Pulse Pulse Resp BP Pulse Ox 12/17/19 14:32 69 16 135/65 95 12/17/19 14:02 80 18 128/63 93 12/17/19 13:30 36.5 C 67 16 160/78 H 96 12/17/19 13:15 64 16 159/73 H 93 12/17/19 13:00 36.2 C L 65 15 156/76 H 97 12/17/19 12:50 68 16 155/75 H 96 12/17/19 12:40 65 18 166/69 H 100 12/17/19 12:30 36 C L 98 H 16 165/72 H 100 12/17/19 09:25 36.4 C L 68 18 176/79 H 97 PG Care Time/CCT Total # of Minutes Spent Total Time Spent with Patient: Total time spent is greater than 50% in coordination of care (as documented) at patient's floor/unit and/or counseling patient: Coding Level of Care Code None Diagnoses Open wound of right great toe S91.101A
[2019-12-17] MEDS ORDERED: WARFARIN SOD 10 MG TAB PO SCH (16:00)
[2019-12-17] MEDS: carvediloL 3.125 MG TAB PO SCH (18:52)
[2019-12-17] MEDS: INSULIN ASPART 100 UNITS/ML 3 ML PEN SC SCH ×2 (18:53→21:38)
[2019-12-17] MEDS: CEFAZOLIN 2000MG 2,000 MG/15 ML SYR IV SCH (20:00)
[2019-12-17] MEDS ORDERED: INSULIN GLARGINE SOLOSTAR 100 UNITS/ML 3 ML PEN SC SCH ×2 (21:00)
[2019-12-18] MEDS: OXYCODONE HCL IR 5 MG TAB (IMMEDIATE RELEASE) PO PRN (01:13)
[2019-12-18] MEDS: CEFAZOLIN 2000MG 2,000 MG/15 ML SYR IV SCH (02:34)
[2019-12-18] MEDS: KETOROLAC TROMETHAMINE 15 MG/ML VIAL IV SCH ×2 (02:34→08:33)
[2019-12-18 06:14] LABS: INR 1.3 (0.9-1.1); Prothrombin Time 13.2 Seconds (9.0-12.0)
--- NOTE | 2019-12-18 08:20 | Orthopedic Progress Note ---
Date of Service December 18, 2019 Assessment & Plan (1) Status post amputation of right great toe: Overall he is doing very well. He is not having much pain. I want him to leave the dressing clean and dry and intact until I see him in 2 weeks. He is to make an appointment to follow-up with our office in 2 weeks on December 29. He has a history of multiple organisms growing from this foot wound. The current cultures are not back yet. 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 He is tried multiple antibiotics and has had side effects to most of them. I think that Bactrim twice a day would be our best bet at this point. I do want to give him some coverage for a couple of weeks. I realize the interaction with the Coumadin that he is on, however, we talked about reactions he had the other antibiotics and I feel that Bactrim is the best option for him at this point. It gives him the best coverage for what is been growing out of his wound in the past. He understands about risks and benefits. We will discharge him to home on Bactrim twice a day as well as oxycodone for pain. He will follow-up in 2 weeks. Present on Admission?: Yes Subjective Miguel Ángel was seen and examined at bedside this morning. Overall he is doing very well. He is anxious to get home. He has been ambulating to the bathroom. He is not having too much pain in his foot. He is happy with his progress and has no complaints. Physical Exam Musculoskeletal: On physical examination of the right foot, the dressing is clean and dry. There is no drainage. Results & Data ([facility]) Vital Signs (Past 12 Hours) Vital Signs Temp Pulse Resp BP Pulse Ox 12/18/19 07:55 37.0 C 75 16 144/67 H 98 12/18/19 02:42 36.7 C 67 16 140/74 97 12/17/19 23:10 36.6 C 62 16 134/72 92 PG Care Time/CCT Total # of Minutes Spent Total Time Spent with Patient: Total time spent is greater than 50% in coordination of care (as documented) at patient's floor/unit and/or counseling patient: Coding Level of Care Code None Diagnoses Status post amputation of right great toe Z89.411
--- NOTE | 2019-12-18 08:22 | Discharge Summary ---
Date of Service December 18, 2019 Admission HPI Per Admitting Provider Miguel Ángel is a 74-year-old male who underwent a podiatry procedure in July 2019. Unfortunately, after the procedure he developed a bad infection of the distal aspect of his right great toe. He came to the hospital and I did MTP amputation of his right great toe. I tried to preserve the head of the metatarsal. Unfortunately the wound on the distal end of the metatarsal never fully healed. It has stayed open and has done persistent draining. He has been through several months of wound care without much relief. He has tried several different antibiotics and he is having significant reactions from the antibio tics such as severe GI disorders. After failing extensive conservative treatment, he has elected to proceed with a first ray resection of the right foot. Principal Diagnosis Amputation right great toe Discharge Data Allergies Allergy/AdvReac Type Severity Reaction Status Date / Time No Known Drug Allergies Allergy Verified 12/16/19 08:56 Consultations 12/17/19 13:34 Consult Case Management - Discharge Planning Routine Procedures Performed Operation Date: 12/17/19 10:30 Actual Procedures p Right Foot First Ray Amputation(Right) - Savage Petersen DO Ordered Studies 12/17/19 05:00 US - OR guided needle placemen Routine 12/17/19 10:30 FL fluoroscopy <1hr Routine FL foot RT 2V Routine Hospital Course (1) Status post amputation of right great toe: On December 17, 2019 Miguel Ángel arrived at [facility] and underwent a partial first ray amputation of the right great toe. The surgery went well and the wound was easily closed. He was placed in a soft dressing and kept overnight on IV antibiotic treatment. His hospital course was uneventful. On postop day #1 his pain was well controlled. His cultures did not grow out anything final yet but he does have a history of MRSA with that foot. I thought that outpatient Bactrim would given the best coverage. He understands the interactions with the Coumadin that he is on but given risks and benefits I think this is still his best coverage. He has had multiple allergies and reactions to other antibiotics. He was tolerating the oxycodone well in the hospital and he was discharged home on that. He will follow-up with orthopedics in 2 weeks. He is to keep the dressing clean, dry, and intact until he follows up. Total Time Total Time Spent Total Time Spent (In Minutes): 20 Discharge Plan Discharge Items Patient Disposition: Home - Self-Care Reason For Visit: Non Healing Wound Right Foot Discharge Diagnosis: Amputation right foot Activity: As commented below Non-emergency contact: Surgeon Call non-emergency contact if: your wound has increased redness and your wound has increased drainage Follow-up/Referrals: Mikey Segura DO [Primary Care Provider] - Diet: Carb Consistent or DM2 Addtl Attending Provider Instructions: Keep dressing clean and dry until follow-up appointment in 2 weeks. Bactrim DS twice a day for 2 weeks. Follow-up with Dr. Petersen in 2 weeks. This will be on December 29. Office phone number is [phone]. Resume all other preoperative medications. Weightbearing as tolerated in a hard sole shoe. Pending Studies at Discharge: No Stand-Alone Forms: My [employer], Smoking Cessation Medications and DC Order Prescriptions: New oxycodone-acetaminophen [Percocet] 5-325 mg tablet 1 tab PO Q6H PRN (Reason: pain) Qty: 30 RF: 0 sulfamethoxazole-trimethoprim [Bactrim DS] 800-160 mg tablet 1 tab PO BID 14 Days Qty: 28 RF: 0 Continued tramadol 50 mg tablet 50 mg PO TID PRN (Reason: pain) Qty: 30 RF: 0 carvedilol 3.125 mg Tablet 3.125 mg PO BIDM RF: 0 losartan 25 mg tablet 25 mg PO QAM RF: 0 furosemide 40 mg tablet 40 mg PO QAM PRN (Reason: WEIGHT GAIN/FLUID RETENTION) RF: 0 spironolactone 25 mg tablet 25 mg PO QAM RF: 0 Lantus Solostar U-100 Insulin 100 unit/mL (3 mL) insulin pen 40 unit SUBCUT HS RF: 0 warfarin 5 mg tablet 10 mg PO PM RF: 0 clopidogrel 75 mg Tablet 75 mg PO QAM 30 Days Qty: 30 RF: 3 Discharge Orders: Discharge Order (Routine); Ordered 12/18/19 Ordered By: Savage Petersen Admission Data Admit Date/Time: 12/17/19 12:27 Attending Provider: Savage Petersen Admit Provider: Savage Petersen Primary Care Provider: Mikey Segura V. Coding Level of Care Code D/C Day Management <30 mins Diagnoses Status post amputation of right great toe Z89.411
[2019-12-18] MEDS: CARBOHYDRATES FOR HYPOGLYCEMIA PO PRN ×3 (08:30→09:06)
[2019-12-18] MEDS: carvediloL 3.125 MG TAB PO SCH (08:32)
[2019-12-18] MEDS ORDERED: CLOPIDOGREL BISULFATE 75 MG TAB PO SCH (09:00)
[2019-12-18] MEDS ORDERED: LOSARTAN POTASSIUM 25 MG TAB PO SCH (09:00)
[2019-12-18] MEDS ORDERED: SPIRONOLACTONE 25 MG TAB PO SCH (09:00)
[2019-12-18] MEDS ORDERED: MULTIVITAMIN TAB PO SCH (09:00)
[2019-12-18] MEDS: INSULIN ASPART 100 UNITS/ML 3 ML PEN SC SCH (10:27)
== END 2019-12-18 10:54 | disposition home or self-care (01) ==
LOC: ASU 08:45 → INTOOBSV 12:27 → 3E 12:27

== ENCOUNTER 2025-05-29 17:36 | Inpatient (IN) ==
[2025-05-29 18:24] LABS: Appearance Urine Clear (Clear); Glucose Urine UA 2+ (Negative)
[2025-05-29 18:24] LABS: Hematocrit (blood only) 42.9 % (42.0-52.0); Hemoglobin 13.1 g/dl (14.0-18.0); Immature Granulocytes # (auto) 0.07 K/uL (0.01-0.20); Immature Granulocytes % (auto) 0.7 %; Mean Corpuscular Hemoglobin 24.3 pg (25.0-34.0); Mean Corpuscular Volume 79.4 fL (80.0-100.0); Platelet Count 206 K/uL (130-400); RDW Standard Deviation 43.9 fL (36.4-46.3); Red Blood Count 5.40 M/uL (4.70-6.10); White Blood Count 10.30 K/ul (4.8-10.8)
--- NOTE | 2025-05-29 18:25 | Emergency Department Note ---
Impression & Plan Acute pain of right hip, Fall, Closed subcapital fracture of neck of right femur, Multiple abrasions, Hematoma of scalp, Elevated troponin, Acute kidney injury superimposed on chronic kidney disease ED Provider Note HISTORY OF PRESENT ILLNESS: Patient is a 79-year-old male presenting with right hip pain after a fall. Patient reports that [place] he got out of his truck to go to the bathroom and "tripped over something." He states that he fell and struck the right side of his head, right shoulder and right hip. He states he was unable to get up secondary to pain in the hip. Patient reportedly was able to drive himself home after he was assisted up into his truck. He called EMS for his continued pain once he got home. He is on Coumadin. Denies loss of consciousness when he struck his head. Patient denies any chest pain, shortness of breath or lightheadedness prior to his fall. He reports he just tripped and fell. He is currently complaining of 10 out of 10 pain in his right groin. ROS: as above PHYSICAL EXAM: Primary Survey Airway: Intact Breathing: Normal, breath sounds equal bilaterally Circulation: Skin warm, distal pulses 2+, capillary refill less than 2 seconds Disability Pupils: Equal and reactive to light, 3 mm, brisk GCS: 15, E = 4, V=5, M= 6 Motor Function: Moves all extremities. Sensory: No deficits Secondary Survey GEN: Well developed and well-nourished HENT: Head: Noted to have a hematoma and overlying abrasion to the right upper frontal forehead. Mouth/Throat: Midface stable. No malocclusion. Eyes: EOMI. Pupils are 3 mm, round and reactive bilaterally. Neck: No midline C-spine tenderness. No step-offs. Cardiovascular: RRR. Pulses present in all 4 extremities. Pulmonary/Chest: BS equal bilaterally. No tenderness or ecchymosis. Abdomen: No tenderness or ecchymosis. Musculoskeletal: Pelvis: No instability. Patient has pain with internal and external rotation of the femur at the hip on the right. Right leg is flexed at the knee and externally rotated. Back: No midline tenderness. No step-offs or deformities. Extremities: No gross deformities. Tenderness to palpation as noted above of the proximal right femur and right lower hip. Patient has LLE BKA Skin: No laceration. Scattered abrasions at the right shoulder and right forearm. Neuro: No focal neurological deficits. GCS as above. Psych: Normal mood and affect. MDM: - Vitals signs showed hypertension - History obtained via patient. History as above. - Chronic conditions affecting care: CHF; CAD; ischemic cardiomyopathy (s/p AICD); PAD; CKD - Differential diagnoses include, but are not limited to: Skull fracture; intracranial hemorrhage; femur fracture; pelvic fracture - Order placed for continuous cardiac monitoring. At this time, monitor showed rate of 66 bpm with normal sinus rhythm, per my interpretation. - External medical records reviewed. Orthopedic office visit note dated 01/27/2020 was reviewed. Patient was seen postoperatively for amputation of his right great toe. - EKG image interpreted by myself showed normal sinus rhythm. Rate 66 bpm. QT 438. No acute ischemic changes. - Laboratory workup interpreted by myself showed normal WBC; therapeutic INR (2.9); stable electrolytes; ETIENNE on CKD (Cr 1.90); elevated troponin (32); negative alcohol - CXR image reviewed interpreted myself is negative for pneumothorax, per my interpretation. - Xray pelvis with right hip views reviewed by myself showed what looks like a subcapital femur fracture, per my interpretation. - CT head wo contrast neck for acute intracranial pathology. - CT cervical spine wo contrast for acute injury. - CT pelvis wo contrast acute traumatic comminuted impacted fracture of the subcapital right femur with varus angulation. - Martin catheter inserted by nursing staff. - Patient initially given 50 mcg IV fentanyl for pain control in ER. However, he did desaturate and was placed on 2 L nasal cannula for supplemental oxygen. He is also starting to feel nauseous and was given 4 mg IV Zofran. - Discussed case with orthopedic AGUSTÍN, Raul Morataya, at 19:00. He reports that they will be seeing the patient as a consult in the morning. He states that if the patient is cleared for surgery they could do surgery in the morning. However, I did discuss the patient's Coumadin use status and his elevated INR. Ortho reports that surgery can occur when medicine clears the patient. - Patient and family at bedside updated on results. He was complaining of increased pain. 2 mg IV morphine every hour was ordered for pain management. - Discussion was had with director of casework services about patient's case and need for admission - Hospitalist consulted for admission - Patient admitted to [facility] for further evaluation and management. ASSESSMENT AND PLAN: Diagnosis: acute right hip pain; fall; right subcapital femur fracture; multiple abrasions; scalp hematoma; ETIENNE on CKD; elevated troponin Plan: admit Past Med/Surg History Problem List (Updated 05/29/25 @ 20:06 by Marce Vail MD) Acute kidney injury superimposed on chronic kidney disease (Acute) Elevated troponin (Acute) Hematoma of scalp (Acute) Multiple abrasions (Acute) Closed subcapital fracture of neck of right femur (Acute) Fall (Acute) Acute pain of right hip (Acute) Diabetes Preoperative cardiovascular examination Aortic stenosis Renal failure (ARF), acute on chronic Status post amputation of right great toe (~12/2019) DVT prophylaxis CKD (chronic kidney disease) stage 3, GFR 30-59 ml/min PAD (peripheral artery disease) (Chronic) History of open heart surgery 12 years ago, Aquafadas S/P ICD (internal cardiac defibrillator) procedure Ischemic cardiomyopathy S/P single-chamber Medtronic AICD on 06/26/2012 for primary prevention of sudden cardiac given severe ischemic cardiomyopathy. His ejection fraction at the time of that procedure was in the range of 20% EF roughly 40% on echo 08/2019. 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 for which he [place] surgical [place] of [place] [facility] [place] s/p resection 2011 CHF (congestive heart failure) Medical History (Updated 05/29/25 @ 20:06 by Marce Vail MD) Abnormal EKG Diffuse deep T wave inversions in the anterior lateral precordial leads, age- indeterminate inferior infarction with inferior T wave inversions -- unchanged compared to the prior performed as an outpatient on 08/13/2017 (scanned to EMR) Osteomyelitis Poor historian Diabetes mellitus, type 2 On anticoagulant therapy Hypertension Amputation of right great toe Surgical History (Updated 12/18/19 @ 08:17 by Savage Petersen DO) History of esophagogastroduodenoscopy (EGD) History of adenoidectomy History of tonsillectomy History of cataract surgery bilateral History of cardiac cath no intervention History of amputation of great toe R great toe amp by Dr. Petersen 08/18/19. LMA #5, atraumatic. VSS in PACU. No complications. History of angioplasty of peripheral vessel 08/21/2019 Summary: 1. Right lower [id number] to 90% heavily calcified proximal common iliac stenosis, mild to moderate diffuse SFA/popliteal disease, subtotally occluded anterior tibial artery, occluded posterior tibial artery. 2. Left lower extremitycalcified, mild diffuse iliac/[employer] disease 3. Successful right common iliac artery stenting with 2 overlapping covered stents (Lifestream 9.0 x 38, 9.0 x 38). 4. Successful angioplasty of right anterior tibial artery with 3.0 balloon History of open heart surgery Family History Other Diabetes Social History Smoking Status: Former smoker packs per day: 2; Cigarettes Per Day: 12 year quit; Second Hand Exposure: No; Do You Dip or Chew Tobacco: No; Hx Alcohol Use: No Hx Substance Use: No Preferred Language: Setswana Communication Ability: Effective Freight Caller Required: No Beliefs That Will Affect Care: None marital status: Current Living Situation: Spouse Feels Safe at Home: Yes Assistive Devices: None Allergies Allergies Allergy/AdvReac Type Severity Reaction Status Date / Time No Known Drug Allergies Allergy Verified 01/27/20 15:29 Home Meds Home Medications Medication Instructions Recorded Confirmed carvedilol 3.125 mg tablet 3.125 mg PO BIDM 08/17/19 01/27/20 furosemide 40 mg tablet 40 mg PO QAM PRN WEIGHT GAIN/FLUID 08/17/19 01/27/20 RETENTION insulin glargine 100 unit/mL (3 40 unit subcut HS 08/17/19 01/27/20 mL) subcutaneous pen (Lantus Solostar U-100 Insulin) losartan 25 mg tablet 25 mg PO QAM 08/17/19 01/27/20 spironolactone 25 mg tablet 25 mg PO QAM 08/17/19 01/27/20 warfarin 5 mg tablet 10 mg PO PM 08/17/19 01/27/20 Previous Rx's Medication Instructions Recorded clopidogrel 75 mg tablet 75 mg PO QAM 30 days #30 tabs 08/23/19 tramadol 50 mg tablet 50 mg PO TID PRN pain #30 tabs 12/08/19 oxycodone-acetaminophen 5 mg-325 1 tab PO Q6H PRN pain #30 tabs 12/18/19 mg tablet (Percocet) doxycycline hyclate 100 mg 100 mg PO BID #14 tabs 12/22/19 tablet,delayed release ondansetron 4 mg disintegrating 4 mg PO Q8H PRN nausea and 12/30/19 tablet vomiting #50 tabs Results & Data (ED) Vital Signs Vital Signs - 24 hr 05/29/25 17:21 05/29/25 17:41 05/29/25 17:44 Temperature 36.5 C Temperature Source Oral Pulse Rate 68 68 Pulse Rate [Right] 95 H Pulse Rate from SpO2 Sensor Respiratory Rate 20 14 23 Blood Pressure 169/78 H 169/78 H Blood Pressure [Left Arm] 169/78 H Blood Pressure Mean 103 108 Blood Pressure Mean [Left Arm] 108 Pulse Oximetry 95 91 97 Oxygen Delivery Method Room Air Room Air Nasal Cannula Oxygen Flow Rate 2 Sepsis Recent Fever Within 48 Hours No Sepsis New/Unexplained Change in Mental Status N/A Sepsis Action Taken by Nursing No Action Required 05/29/25 17:53 05/29/25 18:21 05/29/25 18:21 Temperature Temperature Source Pulse Rate 68 Pulse Rate [Right] 72 Pulse Rate from SpO2 Sensor Respiratory Rate 20 Blood Pressure Blood Pressure [Left Arm] 169/78 H Blood Pressure Mean Blood Pressure Mean [Left Arm] 108 Pulse Oximetry 94 95 Oxygen Delivery Method Room Air Oxygen Flow Rate Sepsis Recent Fever Within 48 Hours Sepsis New/Unexplained Change in Mental Status Sepsis Action Taken by Nursing 05/29/25 18:21 05/29/25 19:00 05/29/25 20:00 Temperature Temperature Source Pulse Rate 68 Pulse Rate [Right] 66 65 Pulse Rate from SpO2 Sensor 69 Respiratory Rate 20 20 18 Blood Pressure Blood Pressure [Left Arm] 147/67 H 138/75 Blood Pressure Mean Blood Pressure Mean [Left Arm] 93 96 Pulse Oximetry 97 94 97 Oxygen Delivery Method Nasal Cannula Room Air Nasal Cannula Oxygen Flow Rate 2 2 Sepsis Recent Fever Within 48 Hours Sepsis New/Unexplained Change in Mental Status Sepsis Action Taken by Nursing Laboratory Data 05/29/25 17:43 05/29/25 17:43 Lab Results 05/29/25 05/29/25 05/29/25 Range/Units 17:43 18:08 18:57 WBC 10.30 (4.8-10.8) K/ul RBC 5.40 (4.70-6.10) M/uL Hgb 13.1 L (14.0-18.0) g/dl Hct 42.9 (42.0-52.0) % MCV 79.4 L (80.0-100.0) fL MCH 24.3 L (25.0-34.0) pg MCHC 30.5 L (32.0-36.0) g/dL RDW Std Deviation 43.9 (36.4-46.3) fL RDW Coeff of Yenny 15.5 H (11.5-14.5) % Plt Count 206 (130-400) K/uL MPV 10.5 (9.4-12.4) fL Immature Gran % (Auto) 0.7 % Neut % (Auto) 84.9 % Lymph % (Auto) 5.6 % Burleigh % (Auto) 7.8 % Eos % (Auto) 0.6 % Baso % (Auto) 0.4 % Neut # (Auto) 8.75 H (1.40-6.50) K/uL Lymph # (Auto) 0.58 L (1.20-3.40) K/uL Burleigh # (Auto) 0.80 H (0.11-0.59) K/uL Eos # (Auto) 0.06 (0.00-0.50) K/uL Baso # (Auto) 0.04 (0.00-0.20) K/uL Immature Gran # (Auto) 0.07 (0.01-0.20) K/uL PT 29.2 H (9.0-12.0) Seconds INR 2.9 H (0.9-1.1) Sodium 137 (136-145) mmol/L Potassium 4.9 (3.5-5.1) mmol/L Chloride 104 (98-107) mmol/L Carbon Dioxide 26 (21-32) mmol/L Anion Gap 7 (3-11) BUN 60 H (6-23) mg/dl Creatinine 1.90 H (0.6-1.4) mg/dl Est Cr Clr Drug Dosing 33.6 ml/min eGFR 35.44 BUN/Creatinine Ratio 31.6 H (10-20) Glucose 162 H (70-99(Fasting)) mg/dl Calcium 10.2 (8.6-10.3) mg/dl Total Bilirubin 0.6 (0.2-1.0) mg/dl AST 16 (13-39) U/L ALT 13 (7-52) U/L Alkaline Phosphatase 104 (34-104) U/L Troponin I High Sens 32.0 H (0-20) pg/ml Total Protein 7.5 (6.0-8.3) gm/dl Albumin 3.6 (3.4-5.0) gm/dl Globulin 3.9 (2.5-4.0) gm/dl Albumin/Globulin Ratio 0.9 (0.9-2) Urine Color Yellow Urine Appearance Clear (Clear) Urine pH 5.5 (4.5-7.5) Ur Specific Rheems 1.015 (1.000-1.030) Urine Protein Negative (Negative) Urine Glucose (UA) 2+ H (Negative) Urine Ketones Negative (Negative) Urine Blood Trace-intact H (Negative) Urine Nitrite Negative (Negative) Urine Bilirubin Negative (Negative) Urine Urobilinogen Negative (Negative) Ur Leukocyte Esterase 2+ H (Negative) Urine WBC (Auto) >50 H (0-5) /hpf Urine RBC (Auto) 0-2 (0-2) /hpf U Hyaline Cast (Auto) 0-2 (0-2) /lpf U Epithel Cells (Auto) 0-2 (0-2) /hpf Urine Bacteria (Auto) None Seen (None Seen) Hyaline Casts Present A (None Presnt) /lpf Urine Yeast Present A (None Prsent) Urine Comment Ethyl Alcohol mg/dL < 10.0 (<10.0) mg/dl Administered Medications Morphine Sulfate (Morphine Sulfate 2 Mg/Ml Carp) 2 mg IV Q1H PRN PRN Reason: Pain Stop: 06/12/25 19:52 Last Admin: 05/29/25 19:57 Dose: 2 mg Documented By: CAMERON Discontinued Medications Fentanyl Citrate (Fentanyl Citrate Pf 100 Mcg/2 Ml Vial) 50 mcg IV NOW STA Stop: 05/29/25 17:54 Last Admin: 05/29/25 17:59 Dose: 50 mcg Documented By: ECS Ondansetron HCl (Ondansetron Inj 2 Mg/Ml 2 Ml Vial) 4 mg IV NOW STA Stop: 05/29/25 18:11 Last Admin: 05/29/25 18:32 Dose: 4 mg Documented By: [facility] Imaging Data Radiologist's Impression: Cervical Spine CT 05/29/25 17:53 CT CERVICAL SPINE WITHOUT CONTRAST: HISTORY: PAIN TECHNIQUE: Noncontrast CT examination of the cervical spine is performed. Coronal and sagittal reformats were created. COMPARISON: None. FINDINGS: CERVICAL SPINE: There is no significant vertebral body height loss. No acute traumatic fracture identified. There is no significant spondylolisthesis. Multilevel degenerative changes characterized by disc osteophyte complex, bilateral facet and uncovertebral hypertrophy resulting and neural foraminal narrowing at multiple levels, worst at mid to lower spine. Visualized soft tissues of neck are unremarkable. Emphysema. IMPRESSION: No acute traumatic fracture of the cervical spine. Multilevel degenerative changes as above Electronically signed by Oz Alanis 05-29-2025 7:56 PM Chest X-Ray 05/29/25 17:53 Single frontal view of the chest Comparison made to prior exam dated 08/17/2019 Impression Left chest wall intracardiac device. Postoperative changes median sternotomy. Advanced degenerative changes of the shoulders. Mild pulmonary vas congestion. Cardiomegaly. This is unchanged when compared with prior exam. Electronically signed by Jamar Robles 05-29-2025 8:[address] 05/29/25 17:53 CT HEAD: HISTORY: Trauma TECHNIQUE: Noncontrast CT examination of the head is performed. Coronal and sagittal reformats were created. COMPARISON: None FINDINGS: There is no evidence of intracranial hemorrhage, focal mass effect or midline shift. No fluid collection is identified. The ventricular system is midline and symmetric. No evidence of acute major vascular territory infarction. Age-related involutional changes of the brain and chronic white matter ischemic changes. No calvarial fracture is identified. The paranasal sinuses and mastoids are well aerated. Cataract surgeries bilaterally. Small mastoid fluids. IMPRESSION: No acute intracranial process identified. Chronic findings as above Electronically signed by Oz Alanis 05-29-2025 7:[address] 05/29/25 18:36 CT PELVIS WITHOUT CONTRAST: HISTORY: TRAUMA TECHNIQUE: CT of the pelvis was obtained without intravenous contrast. Coronal and sagittal reformats were created. COMPARISON: FINDINGS: Acute traumatic comminuted and impacted fractures of the subcapital right femur with the additional fractures in the base of the femoral head. Mild varus angulation. There is stent material and the right common iliac artery. IMPRESSION: Acute traumatic comminuted and impacted fractures of the subcapital right femur with varus angulation. Electronically signed by Oz Alanis 05-29-2025 7:56 PM Discharge Plan Visit Data Chief Complaint: Fall ED Provider: Marce Vail Discharge Problem: Acute pain of right hip, Fall, Closed subcapital fracture of neck of right femur, Multiple abrasions, Hematoma of scalp, Elevated troponin, Acute kidney injury superimposed on chronic kidney disease Condition: Fair Forms Stand Alone Forms: [place] [facility] [place] [facility] Prescriptions Prescriptions: No Action tramadol 50 mg tablet 50 mg PO TID PRN (Reason: pain) Qty: 30 0RF doxycycline hyclate 100 mg tablet,delayed release (DR/EC) 100 mg PO BID Qty: 14 0RF ondansetron 4 mg tablet,disintegrating 4 mg PO Q8H PRN (Reason: nausea and vomiting) Qty: 50 0RF carvedilol 3.125 mg Tablet 3.125 mg PO BIDM Rx Instructions: TAKE THIS MED WITH MORNING AND EVENING MEALS. losartan 25 mg tablet 25 mg PO QAM furosemide 40 mg tablet 40 mg PO QAM PRN (Reason: WEIGHT GAIN/FLUID RETENTION) spironolactone 25 mg tablet 25 mg PO QAM Lantus Solostar U-100 Insulin 100 unit/mL (3 mL) insulin pen 40 unit SUBCUT HS warfarin 5 mg tablet 10 mg PO PM Rx Instructions: 12/15- being held per Surgeon 10/15/19: TAKE TWO TABLETS DAILY OR DIRECTED BY [facility]AG CL[facility]IC. clopidogrel 75 mg Tablet 75 mg PO QAM 30 Days Qty: 30 3RF oxycodone-acetaminophen [Percocet] 5-325 mg tablet 1 tab PO Q6H PRN (Reason: pain) Qty: 30 0RF Referrals Referrals: Mikey Segura DO [Outside Practitioners] -
[2025-05-29] MEDS: ONDANSETRON INJ 2 MG/ML 2 ML VIAL IV STA (18:32)
[2025-05-29 18:37] LABS: Bacteria Urine Automated None Seen (None Seen); Cast Urine Automated 0-2 /lpf (0-2); Epithelial Cell Urine Auto 0-2 /hpf (0-2); RBC Urine Automated 0-2 /hpf (0-2); WBC Urine Automated >50 /hpf (0-5)
[2025-05-29 18:43] LABS: Alanine Aminotransferase 13.0 U/L (7-52); Albumin Globulin Ratio 0.9 (0.9-2); Albumin Level 3.6 gm/dl (3.4-5.0); Alkaline Phosphatase 104.0 U/L (34-104); Anion Gap 7.0 (3-11); Bilirubin,Total 0.6 mg/dl (0.2-1.0); Blood Urea Nitrogen 60.0 mg/dl (6-23); Calcium 10.2 mg/dl (8.6-10.3); Carbon Dioxide 26.0 mmol/L (21-32); Chloride 104.0 mmol/L (98-107); Creatinine Clr Calc Pharmacy 33.6 ml/min; Globulin 3.9 gm/dl (2.5-4.0); Glucose 162.0 mg/dl (70-99(Fasting)); Potassium 4.9 mmol/L (3.5-5.1); Sodium 137.0 mmol/L (136-145); Total Protein 7.5 gm/dl (6.0-8.3)
[2025-05-29 18:51] LABS: INR 2.9 (0.9-1.1); Prothrombin Time 29.2 Seconds (9.0-12.0)
--- NOTE | 2025-05-29 19:56 | CT Scan Report ---
CT HEAD: HISTORY: Trauma TECHNIQUE: Noncontrast CT examination of the head is performed. Coronal and sagittal reformats were created. COMPARISON: None FINDINGS: There is no evidence of intracranial hemorrhage, focal mass effect or midline shift. No fluid collection is identified. The ventricular system is midline and symmetric. No evidence of acute major vascular territory infarction. Age-related involutional changes of the brain and chronic white matter ischemic changes. No calvarial fracture is identified. The paranasal sinuses and mastoids are well aerated. Cataract surgeries bilaterally. Small mastoid fluids. IMPRESSION: No acute intracranial process identified. Chronic findings as above Electronically signed by Oz Alanis 05-29-2025 7:56 PM
[2025-05-29] MEDS: MoRPHine SULFATE 2 MG/ML CARP IV PRN (19:57)
--- NOTE | 2025-05-29 19:57 | CT Scan Report ---
CT CERVICAL SPINE WITHOUT CONTRAST: HISTORY: PAIN TECHNIQUE: Noncontrast CT examination of the cervical spine is performed. Coronal and sagittal reformats were created. COMPARISON: None. FINDINGS: CERVICAL SPINE: There is no significant vertebral body height loss. No acute traumatic fracture identified. There is no significant spondylolisthesis. Multilevel degenerative changes characterized by disc osteophyte complex, bilateral facet and uncovertebral hypertrophy resulting and neural foraminal narrowing at multiple levels, worst at mid to lower spine. Visualized soft tissues of neck are unremarkable. Emphysema. IMPRESSION: No acute traumatic fracture of the cervical spine. Multilevel degenerative changes as above Electronically signed by Oz Alanis 05-29-2025 7:56 PM
--- NOTE | 2025-05-29 19:57 | CT Scan Report ---
CT PELVIS WITHOUT CONTRAST: HISTORY: TRAUMA TECHNIQUE: CT of the pelvis was obtained without intravenous contrast. Coronal and sagittal reformats were created. COMPARISON: FINDINGS: Acute traumatic comminuted and impacted fractures of the subcapital right femur with the additional fractures in the base of the femoral head. Mild varus angulation. There is stent material and the right common iliac artery. IMPRESSION: Acute traumatic comminuted and impacted fractures of the subcapital right femur with varus angulation. Electronically signed by Oz Alanis 05-29-2025 7:56 PM
--- NOTE | 2025-05-29 20:03 | XRay Report ---
Single frontal view of the chest Comparison made to prior exam dated 08/17/2019 Impression Left chest wall intracardiac device. Postoperative changes median sternotomy. Advanced degenerative changes of the shoulders. Mild pulmonary vas congestion. Cardiomegaly. This is unchanged when compared with prior exam. Electronically signed by Jamar Robles 05-29-2025 8:03 PM
--- NOTE | 2025-05-29 20:05 | XRay Report ---
2 views right hip No comparison Impression Subcapital right femoral neck fracture which is mildly angulated. Advanced vascular calcifications. Electronically signed by Jamar Robles 05-29-2025 8:03 PM
--- NOTE | 2025-05-29 20:22 | History & Physical Report ---
Date of Service May 29, 2025 Assessment & Plan (1) Closed subcapital fracture of neck of right femur: Plan: Assessment and plan below following discussion of case with ED provider and reviewing patient history/pertinent normal/abnormal diagnostic test results. Traumatic right hip fracture Troponin elevation in the setting of elevated BP and ARF on CKD, patient without chest pain or SOB symptoms. chronic systolic heart failure secondary ischemic cardiomyopathy (EF 20% TTE 2024) status post ICD, patient euvolemic PAF/LV aneurysm status post surgery on Coumadin mild MR CAD status post stent (2023)/PVD as per records symptomatic VT hyperlipidemia, on statin Rx COPD, pulmonary hypertension as per records, lung status at baseline DM2, insulin requiring, reasonable control as of recent hemoglobin A1c of 7.7 last month chronic anemia, hemoglobin at baseline history left BKA history MRSA past tobacco abuse Admit to med/tele given troponin elevation Analgesia Facilitate home BP meds Follow troponin Orthopedics consult RE traumatic right hip fracture (ER provider already in touch with [facility] on-call.) N.p.o. after midnight in anticipation of procedure in a.m. Cardiology consult for preop eval given high risk for postop cardiac complications given comorbidities Hold antiplatelet Rx and Coumadin for now, reverse INR given cutaneous bleed and possible surgery in a.m. Baseline UA, monitor creatinine response to gentle IV hydration given systolic dysfunction. Hold losartan until creatinine back to baseline Basal bolus insulin adjusted for n.p.o. status, ISS BG goal [id number] DVT prophylaxis. SCDs if INR less than 2 while Coumadin on hold Full code Patient requesting for daughter to be given updates regarding care. Dominga Ruth, contact #[phone]. Text document was generated using [employer] voice recognition software. It may contain grammatical or spelling errors. Kindly contact undersigned for clarification of any documentation item in question. . History of Present Illness Chief Complaint: Fall, right hip pain Primary Care Provider: Saul Peters MD History obtained from patient, family, and records. Medical history significant for chronic systolic heart failure secondary ischemic cardiomyopathy (EF 20% TTE 2024) status post ICD, PAF/LV aneurysm status post surgery on Coumadin, mild MR CAD status post stent (2023)/PVD status post surgery, symptomatic VT, hypertension, hyperlipidemia, COPD, pulmonary hypertension as per records, lung nodule as per records, DM2, insulin requiring, CRI (baseline creatinine 1.6-1.7), chronic anemia (baseline hemoglobin of 12- 13), history left BKA, history of MRSA, past tobacco abuse. Recent [facility] confinement last December 2024 for respiratory failure secondary to CHF/cardiogenic shock status post intubation. Symptomatic VT requiring cardioversion prior to confinement. Extensive CAD on diagnostic cardiac catheterization. No PCI performed. Patient eventually extubated with stable BP. Patient got out of his truck to go to the bathroom when he tripped on something. Patient fell on his right side subsequently striking in his head and landing on his right side. Right upper extremity bruising noted. Achy right hip pain. Patient had trouble getting up. Denies chest pain, SOB, LOC. SBP 160s upon arrival at the ER. 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 Allergies Allergy/AdvReac Type Severity Reaction Status Date / Time No Known Drug Allergies Allergy Verified 01/27/20 15:29 Home Medications Medication Instructions Recorded Confirmed Type carvedilol 3.125 mg tablet 3.125 mg PO BIDM 08/17/19 05/29/25 History furosemide 40 mg tablet 80 mg PO QAM PRN WEIGHT GAIN/FLUID 08/17/19 05/29/25 History RETENTION insulin glargine 100 unit/mL (3 30 unit subcut HS 08/17/19 05/29/25 History mL) subcutaneous pen (Lantus Solostar U-100 Insulin) losartan 25 mg tablet 25 mg PO QAM 08/17/19 05/29/25 History warfarin 5 mg tablet 10 mg PO PM 08/17/19 05/29/25 History clopidogrel 75 mg tablet 75 mg PO QAM 30 days #30 tabs 08/23/19 05/29/25 Rx acetaminophen 325 mg tablet 975 mg PO Q6H PRN Fever Or Pain 05/29/25 05/29/25 History amiodarone 200 mg tablet 200 mg PO BID 05/29/25 05/29/25 History atorvastatin 80 mg tablet 80 mg PO DAILYBL 05/29/25 05/29/25 History empagliflozin 10 mg tablet 10 mg PO DAILY 05/29/25 05/29/25 History (Jardiance) ezetimibe 10 mg tablet 10 mg PO QAM 05/29/25 05/29/25 History iron,carbonyl 65 mg-vitamin C 125 1 tab PO DAILY 05/29/25 05/29/25 History mg tablet,delayed release (Vitron-C) nitroglycerin 0.4 mg sublingual 0.4 mg sublingual Q5M PRN ches pain 05/29/25 05/29/25 History tablet Past Med/Surg History Problem List Acute kidney injury superimposed on chronic kidney disease (Acute) Elevated troponin (Acute) Hematoma of scalp (Acute) Multiple abrasions (Acute) Closed subcapital fracture of neck of right femur (Acute) Fall (Acute) Acute pain of right hip (Acute) Diabetes Preoperative cardiovascular examination Aortic stenosis Renal failure (ARF), acute on chronic Status post amputation of right great toe (~12/2019) DVT prophylaxis CKD (chronic kidney disease) stage 3, GFR 30-59 ml/min PAD (peripheral artery disease) (Chronic) History of open heart surgery 12 years ago, [employer] S/P ICD (internal cardiac defibrillator) procedure Ischemic cardiomyopathy S/P single-chamber Medtronic AICD on 06/26/2012 for primary prevention of sudden cardiac given severe ischemic cardiomyopathy. His ejection fraction at the time of that procedure was in the range of 20% EF roughly 40% on echo 08/2019. 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 for which he underwent surgical resection of left ventricular aneurysm on 06/19/2012 at [facility] Left ventricular aneurysm s/p resection 2011 CHF (congestive heart failure) Medical History Abnormal EKG Diffuse deep T wave inversions in the anterior lateral precordial leads, age-indeterminate inferior infarction with inferior T wave inversions -- unchanged compared to the prior performed as an outpatient on 08/13/2017 (scanned to EMR) Osteomyelitis Poor historian Diabetes mellitus, type 2 On anticoagulant therapy Hypertension Amputation of right great toe Surgical History History of esophagogastroduodenoscopy (EGD) History of adenoidectomy History of tonsillectomy History of cataract surgery bilateral History of cardiac cath no intervention History of amputation of great toe R great toe amp by Dr. Petersen 08/18/19. LMA #5, atraumatic. VSS in PACU. No complications. History of angioplasty of peripheral vessel 08/21/2019 Summary: 1. Right lower [id number] to 90% heavily calcified proximal common iliac stenosis, mild to moderate diffuse SFA/popliteal disease, subtotally occluded anterior tibial artery, occluded posterior tibial artery. 2. 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 Successful right common iliac artery stenting with 2 overlapping covered stents (Lifestream 9.0 x 38, 9.0 x 38). 4. Successful angioplasty of right anterior tibial artery with 3.0 balloon History of open heart surgery Family History Other Diabetes Social History Smoking Status: Former smoker Tobacco Type: Cigars packs per day: 2; Cigarettes Per Day: 12 year quit; Second Hand Exposure: No; Do You Dip or Chew Tobacco: No; Hx Alcohol Use: No Hx Substance Use: No Preferred Language: Omani Communication Ability: Effective Frame Polisher Required: No Beliefs That Will Affect Care: None marital status: Current Living Situation: Spouse Current Living Situation Comment: House spouse Feels Safe at Home: Yes Assistive Devices: Cane, Denture - Upper and Prosthesis Review of Systems Review of Systems: As per HPI, all other systems reviewed and negative Physical Exam Physical Exam: GENERAL: Slightly uncomfortable, pleasant, tremulous, slightly hard of hearing, no respiratory distress SKIN: Pallor, warm HEENT: Contusion over forehead, alopecia, pale palpebral conjunctivae, no ptosis, dry buccal mucosa, nasal cannula in place NECK : Supple, no tenderness CHEST : Decreased breath sounds , no tenderness HEART : Diminished S1-S2, systolic murmur ABDOMEN: Some distention, nontender EXTREMITIES : Right hip tenderness, LLE amputation stump, RUE ecchymosis NEUROLOGIC : Coherent, no facial asymmetry, mild hearing impairment, tremulous, gait and stance not assessed Results & Data Results & Data Vital Signs (Past 12 Hours) Vital Signs Temp Pulse Pulse Resp BP BP Pulse Ox 05/29/25 20:00 65 18 138/75 97 05/29/25 19:00 66 20 147/67 H 94 05/29/25 18:21 68 20 97 05/29/25 18:21 72 20 169/78 H 95 05/29/25 18:21 68 05/29/25 17:53 94 05/29/25 17:44 36.5 C 68 23 169/78 H 97 05/29/25 17:41 68 14 169/78 H 91 05/29/25 17:21 95 H 20 169/78 H 95 O2 Del Method O2 Flow Rate 05/29/25 20:00 Nasal Cannula 2 05/29/25 19:00 Room Air 05/29/25 18:21 Nasal Cannula 2 05/29/25 18:21 Room Air 05/29/25 18:21 05/29/25 17:53 05/29/25 17:44 Nasal Cannula 2 05/29/25 17:41 Room Air 05/29/25 17:21 Room Air Laboratory Results Laboratory Results WBC 10.30 K/ul (4.8-10.8) 05/29/25 17:43 RBC 5.40 M/uL (4.70-6.10) 05/29/25 17:43 Hgb 13.1 g/dl (14.0-18.0) L 05/29/25 17:43 Hct 42.9 % (42.0-52.0) 05/29/25 17:43 MCV 79.4 fL (80.0-100.0) L 05/29/25 17:43 MCH 24.3 pg (25.0-34.0) L 05/29/25 17:43 MCHC 30.5 g/dL (32.0-36.0) L 05/29/25 17:43 RDW Std Deviation 43.9 fL (36.4-46.3) 05/29/25 17:43 RDW Coeff of Yenny 15.5 % (11.5-14.5) H 05/29/25 17:43 Plt Count 206 K/uL (130-400) 05/29/25 17:43 MPV 10.5 fL (9.4-12.4) 05/29/25 17:43 Immature Gran % (Auto) 0.7 % 05/29/25 17:43 Neut % (Auto) 84.9 % 05/29/25 17:43 Lymph % (Auto) 5.6 % 05/29/25 17:43 [place]anan % (Auto) 7.8 % 05/29/25 17:43 Eos % (Auto) 0.6 % 05/29/25 17:43 Baso % (Auto) 0.4 % 05/29/25 17:43 Neut # (Auto) 8.75 K/uL (1.40-6.50) H 05/29/25 17:43 Lymph # (Auto) 0.58 K/uL (1.20-3.40) L 05/29/25 17:43 [place]anan # (Auto) 0.80 K/uL (0.11-0.59) H 05/29/25 17:43 Eos # (Auto) 0.06 K/uL (0.00-0.50) 05/29/25 17:43 Baso # (Auto) 0.04 K/uL (0.00-0.20) 05/29/25 17:43 Immature Gran # (Auto) 0.07 K/uL (0.01-0.20) 05/29/25 17:43 PT 29.2 Seconds (9.0-12.0) H 05/29/25 17:43 INR 2.9 (0.9-1.1) H 05/29/25 17:43 Sodium 137 mmol/L (136-145) 05/29/25 17:43 Potassium 4.9 mmol/L (3.5-5.1) 05/29/25 17:43 Chloride 104 mmol/L (98-107) 05/29/25 17:43 Carbon Dioxide 26 mmol/L (21-32) 05/29/25 17:43 Anion Gap 7 (3-11) 05/29/25 17:43 BUN 60 mg/dl (6-23) H 05/29/25 17:43 Creatinine 1.90 mg/dl (0.6-1.4) H 05/29/25 17:43 Est Cr Clr Drug Dosing 33.6 ml/min 05/29/25 17:43 eGFR 35.44 05/29/25 17:43 BUN/Creatinine Ratio 31.6 (10-20) H 05/29/25 17:43 Glucose 162 mg/dl (70-99(Fasting)) H 05/29/25 17:43 Calcium 10.2 mg/dl (8.6-10.3) 05/29/25 17:43 Total Bilirubin 0.6 mg/dl (0.2-1.0) 05/29/25 17:43 AST 16 U/L (13-39) 05/29/25 17:43 ALT 13 U/L (7-52) 05/29/25 17:43 Alkaline Phosphatase 104 U/L (34-104) 05/29/25 17:43 Troponin I High Sens 32.0 pg/ml (0-20) H 05/29/25 17:43 Total Protein 7.5 gm/dl (6.0-8.3) 05/29/25 17:43 Albumin 3.6 gm/dl (3.4-5.0) 05/29/25 17:43 Globulin 3.9 gm/dl (2.5-4.0) 05/29/25 17:43 Albumin/Globulin Ratio 0.9 (0.9-2) 05/29/25 17:43 Urine Color Yellow 05/29/25 18:08 Urine Appearance Clear (Clear) 05/29/25 18:08 Urine pH 5.5 (4.5-7.5) 05/29/25 18:08 Ur Specific [place] 1.015 (1.000-1.030) 05/29/25 18:08 Urine Protein Negative (Negative) 05/29/25 18:08 Urine Glucose (UA) 2+ (Negative) H 05/29/25 18:08 Urine Ketones Negative (Negative) 05/29/25 18:08 Urine Blood Trace-intact (Negative) H 05/29/25 18:08 Urine Nitrite Negative (Negative) 05/29/25 18:08 Urine Bilirubin Negative (Negative) 05/29/25 18:08 Urine Urobilinogen Negative (Negative) 05/29/25 18:08 Ur Leukocyte Esterase 2+ (Negative) H 05/29/25 18:08 Urine WBC (Auto) >50 /hpf (0-5) H 05/29/25 18:08 Urine RBC (Auto) 0-2 /hpf (0-2) 05/29/25 18:08 U Hyaline Cast (Auto) 0-2 /lpf (0-2) 05/29/25 18:08 U Epithel Cells (Auto) 0-2 /hpf (0-2) 05/29/25 18:08 Urine Bacteria (Auto) None Seen (None Seen) 05/29/25 18:08 Hyaline Casts Present /lpf (None Presnt) A 05/29/25 18:08 Urine Yeast Present (None Prsent) A 05/29/25 18:08 Urine Comment 05/29/25 18:08 Ethyl Alcohol mg/dL < 10.0 mg/dl (<10.0) 05/29/25 18:[address] 05/29/25 17:53 CT CERVICAL SPINE WITHOUT CONTRAST: HISTORY: PAIN TECHNIQUE: Noncontrast CT examination of the cervical spine is performed. Coronal and sagittal reformats were created. COMPARISON: None. FINDINGS: CERVICAL SPINE: There is no significant vertebral body height loss. No acute traumatic fracture identified. There is no significant spondylolisthesis. Multilevel degenerative changes characterized by disc osteophyte complex, bilateral facet and uncovertebral hypertrophy resulting and neural foraminal narrowing at multiple levels, worst at mid to lower spine. Visualized soft tissues of neck are unremarkable. Emphysema. IMPRESSION: No acute traumatic fracture of the cervical spine. Multilevel degenerative changes as above Electronically signed by Oz Alanis 05-29-2025 7:56 PM Chest X-Ray 05/29/25 17:53 Single frontal view of the chest Comparison made to prior exam dated 08/17/2019 Impression Left chest wall intracardiac device. Postoperative changes median sternotomy. Advanced degenerative changes of the shoulders. Mild pulmonary vas congestion. Cardiomegaly. This is unchanged when compared with prior exam. Electronically signed by Jamar Robles 05-29-2025 8:[address] 05/29/25 17:53 CT HEAD: HISTORY: Trauma TECHNIQUE: Noncontrast CT examination of the head is performed. Coronal and sagittal reformats were created. COMPARISON: None FINDINGS: There is no evidence of intracranial hemorrhage, focal mass effect or midline shift. No fluid collection is identified. The ventricular system is midline and symmetric. No evidence of acute major vascular territory infarction. Age-related involutional changes of the brain and chronic white matter ischemic changes. No calvarial fracture is identified. The paranasal sinuses and mastoids are well aerated. Cataract surgeries bilaterally. Small mastoid fluids. IMPRESSION: No acute intracranial process identified. Chronic findings as above Electronically signed by Oz Alanis 05-29-2025 7:56 PM Hip/Pelvis X-Ray 05/29/25 17:53 2 views right hip No comparison Impression Subcapital right femoral neck fracture which is mildly angulated. Advanced vascular calcifications. Electronically signed by Jamar Robles 05-29-2025 8:[address] 05/29/25 18:36 CT PELVIS WITHOUT CONTRAST: HISTORY: TRAUMA TECHNIQUE: CT of the pelvis was obtained without intravenous contrast. Coronal and sagittal reformats were created. COMPARISON: FINDINGS: Acute traumatic comminuted and impacted fractures of the subcapital right femur with the additional fractures in the base of the femoral head. Mild varus angulation. There is stent material and the right common iliac artery. IMPRESSION: Acute traumatic comminuted and impacted fractures of the subcapital right femur with varus angulation. Electronically signed by Oz Alanis 05-29-2025 7:56 PM Diagnostic Findings EKG as per my interpretation :Rate 65, NSR, LAD, LAFB, T wave abnormalities lateral leads
[2025-05-29 21:03] LABS: Creatine Kinase 89.0 U/L (30-223); Magnesium 2.3 mg/dl (1.7-2.4)
[2025-05-29] MEDS: SODIUM CHLORIDE 0.9% 1,000 ML IV ONE (21:05)
[2025-05-29] MEDS: ACETAMINOPHEN 1,000 MG/100 ML VIAL IV STA (21:18)
[2025-05-29] MEDS ORDERED: NALOXONE HCL 0.4 MG/1 ML VIAL/CARP IV PRN (21:19)
[2025-05-29 21:23] LABS: Hematocrit (blood only) 41.3 % (42.0-52.0); Hemoglobin 13.1 g/dl (14.0-18.0)
[2025-05-29] MEDS ORDERED: GLUCOSE 10 TAB/TUBE PO PRN (22:12)
[2025-05-29] MEDS ORDERED: GLUCAGON FOR INJ 1 MG VIAL SQ PRN (22:12)
[2025-05-29] MEDS ORDERED: DEXTROSE 50% 50 ML SYRINGE IV PRN (22:12)
[2025-05-29] MEDS ORDERED: GLUCOSE 40% GEL 15 GM TUBE PO PRN (22:12)
[2025-05-29] MEDS ORDERED: CARBOHYDRATES FOR HYPOGLYCEMIA PO PRN (22:12)
[2025-05-29] MEDS: PHYTONADIONE 5 MG in DEXTROSE 5% 50 ML IV STA (22:14)
[2025-05-29] MEDS: LANTUS PER UNIT CHARGE SQ SCH (22:47)
[2025-05-29] MEDS: INSULIN ASPART PER UNIT CHARGE SC SCH (22:47)
[2025-05-29] MEDS: HYDROmorphone INJ 0.5 MG/0.5 ML SYR IV PRN (23:15)
[2025-05-30] MEDS ORDERED: HYDROmorphone INJ 0.5 MG/0.5 ML SYR IV PRN (00:26)
[2025-05-30] MEDS: HYDROmorphone INJ 0.5 MG/0.5 ML SYR IV STA (00:39)
[2025-05-30] MEDS: ACETAMINOPHEN 325 MG TAB PO PRN (02:47)
[2025-05-30 03:57] VITALS: RESP 18
[2025-05-30] MEDS: HYDROmorphone INJ 0.5 MG/0.5 ML SYR IV PRN (04:40)
[2025-05-30 06:00] LABS: Hematocrit (blood only) 38.0 % (42.0-52.0); Hemoglobin 11.3 g/dl (14.0-18.0); Immature Granulocytes # (auto) 0.02 K/uL (0.01-0.20); Immature Granulocytes % (auto) 0.3 %; Mean Corpuscular Hemoglobin 23.7 pg (25.0-34.0); Mean Corpuscular Volume 79.8 fL (80.0-100.0); Platelet Count 169 K/uL (130-400); RDW Standard Deviation 44.8 fL (36.4-46.3); Red Blood Count 4.76 M/uL (4.70-6.10); White Blood Count 7.54 K/ul (4.8-10.8)
[2025-05-30 06:17] LABS: Anion Gap 4.0 (3-11); Blood Urea Nitrogen 61.0 mg/dl (6-23); Calcium 9.6 mg/dl (8.6-10.3); Carbon Dioxide 28.0 mmol/L (21-32); Chloride 105.0 mmol/L (98-107); Creatinine Clr Calc Pharmacy 34.1 ml/min; Glucose 88.0 mg/dl (70-99(Fasting)); Potassium 4.3 mmol/L (3.5-5.1); Sodium 137.0 mmol/L (136-145)
[2025-05-30 06:28] LABS: INR 1.6 (0.9-1.1); Prothrombin Time 16.5 Seconds (9.0-12.0)
[2025-05-30] MEDS: ATORVASTATIN 40 MG TAB PO SCH (08:13)
[2025-05-30] MEDS: EZETIMIBE 10 MG TAB PO SCH (08:13)
[2025-05-30] MEDS: EMPAGLIFLOZIN 10 MG TAB PO SCH (08:15)
[2025-05-30] MEDS: AMIODARONE 200 MG TAB PO SCH (08:15)
[2025-05-30] MEDS: PROMETHAZINE 6.25 MG/50.25 ML BAG IV PRN (08:54)
[2025-05-30] MEDS: MUPIROCIN 2% OINT 22 GM TUBE EXT SCH (08:55)
[2025-05-30] MEDS ORDERED: NON-FORMULARY MEDICATION (Iron,Carbonyl-Vitamin C [Vitron-C] 65 mg iron- 125 mg Tablet,Del PO SCH (09:00)
--- NOTE | 2025-05-30 09:16 | Cardiology Consultation ---
<Statement entered by Lashae Mckeon, - 05/30/25 21:50> I have reviewed the advanced practitioner's documentation and agree with the plan of care. I accept the responsibility for the associated risk. pt seen earlier today in cardiology consultation for preop evaluation. Pt has complex cardiac history with ICM, VT s/p ICD, PAD s/p left AKA, CAD, pAF on coumadin. Pt suffered a mechanical fall complicated with femur fracture of his left hip. He will need orthopedic surgery to repair the fracture. INR needs to be lower for the procedure-which is ok to do for now but he is at a moderately elevated cardiovascular risk for general anesthesia and this surgery that it might be btter to have the procedure at a tertiary center. He denies any ICD shock, LOC to suggest any arrhythmias. pt will be transferred to [facility] for surgery given his complex cardiac comorbidities Date of Consultation May 30, 2025 Assessment & Plan (1) Closed subcapital fracture of neck of right femur: (2) Preoperative cardiovascular examination: (3) Ischemic cardiomyopathy: (4) CAD (coronary artery disease): (5) S/P ICD (internal cardiac defibrillator) procedure: Plan Patient is a very complex 80-year-old male admitted to [facility] after sustaining a mechanical fall and right femur fracture. Cardiology was consulted due to complex cardiovascular disease in the preoperative setting. Patient's had numerous admissions for advanced heart failure requiring mechanical ventilation and most recently milrinone infusion, most recently in December 2024. At that time his LVEF was 25% and he has severe CAD for which med management was recommended. He also has history of sustained VT, on chronic amiodarone and has medtronic ICD in situ. Minimally elevated troponin on arrival ranging 30-50's is to be expected given his history. This is not indicative of acute ACS. After further discussion with hospitalist and anesthesia, they feel he is not an ideal surgical candidate at our facility and are looking to transfer to tertiary care facility for orthopedic surgery. Currently, patient appears well compensated and is without signs/symptoms of angina or CHF. Would continue current outpatient meds including amiodarone 200 mg BID, atorvastatin, carvedilol 3.125 mg BID, losartan. Plavix on hold for potential surgery. Need to start ASA 81 mg daily at least given severe PVD/CAD. Hold coumadin. When INR < 2.0, would start IV heparin. Monitor fluid status closely to prevent CHF exacerbation. No recent device interrogation as an outpatient. Ordered, but may need done at [facility]. No arrhythmias on telemetry. Agree that patient is considered at least moderate to high risk for orthopedic surgery at our facility. Transfer is pending per hospitalist. Case discussed with Dr. Mckeon I spent a total of 60 minutes on the date of service in preparation, delivery, and documentation of the care provided to this patient, excluding any time spent in the performance of separately billed services. Jo Jones PA-C Department of Cardiology, [facility] This chart was completed in part utilizing Speech Voice Recognition Software. Grammatical errors, random word insertions, pronoun errors, and incomplete sentences are an occasional consequence of this system due to software limitations, ambient noise, and hardware issues. Any formal questions or concerns about the content, text, or information contained within the body of this dictation should be directly addressed to the provider for clarification. History of Present Illness Reason for Consultation: Preop Cardiovascular risk assessment Requesting Physician: [facility] Hospitalist Attending Physician: Dr. Mckeon History of Present Illness Patient is a 79-year-old male admitted to [facility] after a fall and sustaining right subcapital fracture of the right femur. Admitted for further evaluation and orthopedic surgery consult. Cardiology consulted due to complex history of cardiovascular disease. Known to [facility] Cardiology. Evaluated in clinic most recently by Yumiko Gomez PA-C in February 2025. Problem List: 1. Chronic coronary heart disease 2. 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 Status post surgical resection of left ventricular aneurysm on 06/19/2012 at [facility] 4. Status post single-chamber Medtronic AICD on 06/26/2012 for primary prevention of sudden cardiac given severe ischemic cardiomyopathy. 5. Status post PCI of the ostial left circumflex with a drug-eluting stent in 2023 6. Severe ischemic cardiomyopathy, chronic systolic heart failure, LVEF 20% 7. Paroxysmal atrial fibrillation 8. Presentation in December 2023 with symptomatic monomorphic ventricular tachycardia status post shock, external cardioversion, and initiation of amiodarone 9. Hypertension 10. Dyslipidemia 11. Type 2 diabetes mellitus 12. COPD 13. Status post left lower extremity below-knee amputation 14. Recurrent admission in December 2024 for acute decompensated HF, respiratory failure, with recurrent VT requiring mechanical ventilation, milrinone. repeat cath at that time demonstrating hemodynamically significant multivessel coronary artery disease including a 60% mid RCA stenosis, 70% ostial and 70% mid LAD stenosis, 80% mid left circumflex stenosis, 80% ostial ramus stenosis, chronic total occlusions of the 2nd obtuse marginal and distal LAD. No PCI was performed At time of consult, patient resting in bed. Admits to ongoing right hip pain.He continuously falls asleep during evaluation and discussion. He denies current cardiac complaints of chest pain, shortness of breath. Reports compliance with home medications. Allergies Allergy/AdvReac Type Severity Reaction Status Date / Time No Known Drug Allergies Allergy Verified 01/27/20 15:29 Home Medications Medication Instructions Recorded Confirmed Type carvedilol 3.125 mg tablet 3.125 mg PO BIDM 08/17/19 05/29/25 History furosemide 40 mg tablet 80 mg PO QAM PRN WEIGHT GAIN/FLUID 08/17/19 05/29/25 History RETENTION insulin glargine 100 unit/mL (3 30 unit subcut HS 08/17/19 05/29/25 History mL) subcutaneous pen (Lantus Solostar U-100 Insulin) losartan 25 mg tablet 25 mg PO QAM 08/17/19 05/29/25 History warfarin 5 mg tablet 10 mg PO PM 08/17/19 05/29/25 History clopidogrel 75 mg tablet 75 mg PO QAM 30 days #30 tabs 08/23/19 05/29/25 Rx acetaminophen 325 mg tablet 975 mg PO Q6H PRN Fever Or Pain 05/29/25 05/29/25 History amiodarone 200 mg tablet 200 mg PO BID 05/29/25 05/29/25 History atorvastatin 80 mg tablet 80 mg PO DAILYBL 05/29/25 05/29/25 History empagliflozin 10 mg tablet 10 mg PO DAILY 05/29/25 05/29/25 History (Jardiance) ezetimibe 10 mg tablet 10 mg PO QAM 05/29/25 05/29/25 History iron,carbonyl 65 mg-vitamin C 125 1 tab PO DAILY 05/29/25 05/29/25 History mg tablet,delayed release (Vitron-C) nitroglycerin 0.4 mg sublingual 0.4 mg sublingual Q5M PRN ches pain 05/29/25 05/29/25 History tablet aspirin 81 mg tablet,delayed 81 mg PO QAM 30 days #30 tabs 05/30/25 Rx release mupirocin 2 % topical ointment 1 applic EXT BID 5 days #22 grams 05/30/25 Rx Patient History Medical History Abnormal EKG Diffuse deep T wave inversions in the anterior lateral precordial leads, age- indeterminate inferior infarction with inferior T wave inversions -- unchanged compared to the prior performed as an outpatient on 08/13/2017 (scanned to EMR) Osteomyelitis Poor historian Diabetes mellitus, type 2 On anticoagulant therapy Hypertension Amputation of right great toe Surgical History History of esophagogastroduodenoscopy (EGD) History of adenoidectomy History of tonsillectomy History of cataract surgery bilateral History of cardiac cath no intervention History of amputation of great toe R great toe amp by Dr. Petersen 08/18/19. LMA #5, atraumatic. VSS in PACU. No complications. History of angioplasty of peripheral vessel 08/21/2019 Summary: 1. Right lower [id number] to 90% heavily calcified proximal common iliac stenosis, mild to moderate diffuse SFA/popliteal disease, subtotally occluded anterior tibial artery, occluded posterior tibial artery. 2. Left lower extremitycalcified, mild diffuse iliac/HEDIS MANAGER disease 3. Successful right common iliac artery stenting with 2 overlapping covered stents (Lifestream 9.0 x 38, 9.0 x 38). 4. Successful angioplasty of right anterior tibial artery with 3.0 balloon History of open heart surgery Family History Other Diabetes Social History Smoking Status: Former smoker Tobacco Type: Cigars packs per day: 2; Cigarettes Per Day: 12 year quit; Second Hand Exposure: No; Do You Dip or Chew Tobacco: No; Hx Alcohol Use: No Hx Substance Use: No Preferred Language: Tajik Communication Ability: Effective Outreach Educator Required: No Beliefs That Will Affect Care: None marital status: Current Living Situation: Spouse Current Living Situation Comment: House spouse Feels Safe at Home: Yes Assistive Devices: Cane, Denture - Upper and Prosthesis Review of Systems Review of Systems: All systems reviewed & are unremarkable except as noted in HPI & below Physical Exam Constitutional: no acute distress Neck: trachea midline, no thyromegaly Respiratory: normal respiratory effort Auscultation: + diminished lung sounds; no rales and no rhonchi Cardiovascular: Rate/Rhythm: regular rate and regular rhythm Heart Sounds: no murmur (distant heart sounds) Vessels: no JVD Extremities: no edema (left AKA) Gastrointestinal (Abdomen): normal bowel sounds, soft, nontender, no hepatosplenomegaly Results & Data Vital Signs (Past 12 Hours) Vital Signs Temp Pulse Pulse Pulse Resp BP BP 05/30/25 07:42 36.5 C 98 H 18 133/75 05/30/25 07:09 48 L 05/30/25 03:24 36.6 C 18 109/56 L 05/29/25 22:19 63 05/29/25 22:04 05/29/25 22:04 36.4 C L 71 14 160/67 H 05/29/25 21:45 74 20 150/82 H 05/29/25 21:19 Pulse Ox O2 Del Method O2 Flow Rate 05/30/25 07:42 98 Nasal Cannula 2 05/30/25 07:09 05/30/25 03:24 91 Nasal Cannula 2 05/29/25 22:19 05/29/25 22:04 Nasal Cannula 2 05/29/25 22:04 95 Nasal Cannula 05/29/25 21:45 97 Nasal Cannula 2 05/29/25 21:19 97 Nasal Cannula Laboratory Results Cardiac Enzymes 05/29/25 05/29/25 05/30/25 Range/Units 17:43 20:09 05:34 AST 16 (13-39) U/L Troponin I High Sens 32.0 H 38.3 H 52.9 H* D (0-20) pg/ml Coagulation 05/29/25 05/30/25 Range/Units 17:43 05:34 PT 29.2 H 16.5 H (9.0-12.0) Seconds CBC 05/29/25 05/29/25 05/30/25 Range/Units 17:43 20:35 05:34 WBC 10.30 7.54 (4.8-10.8) K/ul RBC 5.40 4.76 (4.70-6.10) M/uL Hgb 13.1 L 13.1 L 11.3 L (14.0-18.0) g/dl Hct 42.9 41.3 L 38.0 L (42.0-52.0) % Plt Count 206 169 (130-400) K/uL Neut # (Auto) 8.75 H 5.96 (1.40-6.50) K/uL Lymph # (Auto) 0.58 L 0.44 L (1.20-3.40) K/uL [place] # (Auto) 0.80 H 0.91 H (0.11-0.59) K/uL Eos # (Auto) 0.06 0.17 (0.00-0.50) K/uL Baso # (Auto) 0.04 0.04 (0.00-0.20) K/uL Comprehensive Metabolic Panel 05/29/25 05/30/25 Range/Units 17:43 05:34 Sodium 137 137 (136-145) mmol/L Potassium 4.9 4.3 (3.5-5.1) mmol/L Chloride 104 105 (98-107) mmol/L Carbon Dioxide 26 28 (21-32) mmol/L BUN 60 H 61 H (6-23) mg/dl Creatinine 1.90 H 1.87 H (0.6-1.4) mg/dl Glucose 162 H 88 (70-99(Fasting)) mg/dl Calcium 10.2 9.6 (8.6-10.3) mg/dl AST 16 (13-39) U/L ALT 13 (7-52) U/L Alkaline Phosphatase 104 (34-104) U/L Total Protein 7.5 (6.0-8.3) gm/dl Albumin 3.6 (3.4-5.0) gm/dl Intake and Output 05/29/25 05/30/25 05/30/25 22:59 06:59 14:59 Intake Total 150.5 / 150.5 0 / 150.5 Output Total 350 / 350 Balance 150.5 / -199.5 -350 / -199.5 Intake: IV 150.5 / 150.5 Acetaminophen 1,000 mg In 100 100 / 100 ml @ 400 mls/hr IV NOW STA Rx#: [id number] Phytonadione 5 mg In Dextrose 5 50.5 / 50.5 % 50 ml @ 101 mls/hr IV ONE STA Rx#:[id number] Oral 0 / 0 0 / 0 Output: Urine Amount (Catheter) 350 / 350 Martin/Indwelling 350 / 350 Other: Other Intake Source NPO Weight 80.1 kg 80.1 kg Weight Measurement Method [facility] Built in [facility] Diagnostic Findings Telemetry reviewed: NSR, occ PVC's EKG reviewed: NSR with 1st degree AV block. Widened QRS Cervical Spine CT 05/29/25 17:53 CT CERVICAL SPINE WITHOUT CONTRAST: HISTORY: PAIN TECHNIQUE: Noncontrast CT examination of the cervical spine is performed. Coronal and sagittal reformats were created. COMPARISON: None. FINDINGS: CERVICAL SPINE: There is no significant vertebral body height loss. No acute traumatic fracture identified. There is no significant spondylolisthesis. Multilevel degenerative changes characterized by disc osteophyte complex, bilateral facet and uncovertebral hypertrophy resulting and neural foraminal narrowing at multiple levels, worst at mid to lower spine. Visualized soft tissues of neck are unremarkable. Emphysema. IMPRESSION: No acute traumatic fracture of the cervical spine. Multilevel degenerative changes as above Electronically signed by Oz Alanis 05-29-2025 7:56 PM Chest X-Ray 05/29/25 17:53 Single frontal view of the chest Comparison made to prior exam dated 08/17/2019 Impression Left chest wall intracardiac device. Postoperative changes median sternotomy. Advanced degenerative changes of the shoulders. Mild pulmonary vas congestion. Cardiomegaly. This is unchanged when compared with prior exam. Electronically signed by Jamar Robles 05-29-2025 8:[address] 05/29/25 17:53 CT HEAD: HISTORY: Trauma TECHNIQUE: Noncontrast CT examination of the head is performed. Coronal and sagittal reformats were created. COMPARISON: None FINDINGS: There is no evidence of intracranial hemorrhage, focal mass effect or midline shift. No fluid collection is identified. The ventricular system is midline and symmetric. No evidence of acute major vascular territory infarction. Age-related involutional changes of the brain and chronic white matter ischemic changes. No calvarial fracture is identified. The paranasal sinuses and mastoids are well aerated. Cataract surgeries bilaterally. Small mastoid fluids. IMPRESSION: No acute intracranial process identified. Chronic findings as above Electronically signed by Oz Alanis 05-29-2025 7:56 PM Hip/Pelvis X-Ray 05/29/25 17:53 2 views right hip No comparison Impression Subcapital right femoral neck fracture which is mildly angulated. Advanced vascular calcifications. Electronically signed by Jamar Robles 05-29-2025 8:[address] 05/29/25 18:36 CT PELVIS WITHOUT CONTRAST: HISTORY: TRAUMA TECHNIQUE: CT of the pelvis was obtained without intravenous contrast. Coronal and sagittal reformats were created. COMPARISON: FINDINGS: Acute traumatic comminuted and impacted fractures of the subcapital right femur with the additional fractures in the base of the femoral head. Mild varus angulation. There is stent material and the right common iliac artery. IMPRESSION: Acute traumatic comminuted and impacted fractures of the subcapital right femur with varus angulation. Electronically signed by Oz Alanis 05-29-2025 7:56 PM Prior Outpatient data reviewed: Cath report reviewed from December 2024: Coronary disease - hemodynamically significant 60% mid RCA 70% ostial LAD 70% mid LAD 80% Mid Circ 80% ostial Ramus 100% OM2 100% distal LAD Med management recommended Echo report reviewed dated December 2024: Interpretation Summary The examination is adequate to evaluate the referral indication. The qualitative LV ejection fraction is 20-24% (severely reduced). There is diffuse mild hypokinesis to dyskinesis. There is a large sized apical, septal, anteroseptal, and anterior aneurysm. Mild mitral regurgitation is present. Dilated IVC with reduced collapsability with sniff indicates an elevated right atrial pressure of 15mmHg. Significant tricuspid regurgitation is absent. The spectral Doppler signal is in adequate to calculate right ventricular and pulmnary artery systolic pressure.. Medications Administered Current Inpatient Medications Acetaminophen (Acetaminophen 500 Mg Tab) 1,000 mg PO Q8H ESTEFANIA Stop: 06/29/25 10:59 Amiodarone HCl (Amiodarone 200 Mg Tab) 200 mg PO BID ESTEFANIA Stop: 06/29/25 08:59 Last Admin: 05/30/25 08:15 Dose: 200 mg Atorvastatin Calcium (Atorvastatin 40 Mg Tab) 80 mg PO DAILYBL ESTEFANIA Stop: 06/29/25 10:29 Bisacodyl (Bisacodyl 10 Mg Supp) 10 mg MO DAILY PRN PRN Reason: Constipation Stop: 06/28/25 21:18 Carvedilol (Carvedilol 3.125 Mg Tab) 3.125 mg PO BIDM [facility] Stop: 06/28/25 21:24 Last Admin: 05/30/25 08:15 Dose: 3.125 mg Dextrose (Dextrose 50% 50 Ml Syringe) 25 - 50 ml IV UD PRN; Protocol PRN Reason: Hypoglycemia Protocol Stop: 06/28/25 22:11 Ezetimibe (Ezetimibe 10 Mg Tab) 10 mg PO QAM [facility] Stop: 06/29/25 08:59 Last Admin: 05/30/25 08:13 Dose: 10 mg Empagliflozin (Empagliflozin 10 Mg Tab) 10 mg PO DAILY [facility] Stop: 06/29/25 08:59 Last Admin: 05/30/25 08:15 Dose: 10 mg Glucagon (Glucagon For Inj 1 Mg Vial) 1 mg SQ UD PRN; Protocol PRN Reason: Hypoglycemia Protocol Stop: 06/28/25 22:11 Glucose (Glucose 40% Gel 15 Gm Tube) 15 - 30 gm PO UD PRN; Protocol PRN Reason: Hypoglycemia Protocol Stop: 06/28/25 22:11 Glucose (Glucose 10 Tab/Tube) 4 - 8 tab PO UD PRN; Protocol PRN Reason: Hypoglycemia Protocol Stop: 06/28/25 22:11 Hydromorphone HCl (Hydromorphone Inj 0.5 Mg/0.5 Ml Syr) 0.5 mg IV Q4H PRN PRN Reason: Pain Stop: 06/12/25 20:24 Last Admin: 05/30/25 08:54 Dose: 0.5 mg Sodium Chloride (Nss) 1,000 mls @ 50 mls/hr IV .Q20H ONE Stop: 05/30/25 16:09 Last Admin: 05/29/25 21:05 Dose: 50 mls/hr Promethazine HCl (Phenergan) 6.25 mg in 50.25 mls @ 201 mls/hr IV Q6H PRN PRN Reason: Nausea And Vomiting Stop: 06/28/25 20:24 Last Admin: 05/30/25 08:54 Dose: 201 mls/hr Insulin Aspart (Insulin Aspart Per Unit Charge) 0 units SC Q6 ESTEFANIA Stop: 06/28/25 22:14 Last Admin: 05/30/25 05:33 Dose: Not Given Insulin Glargine (Lantus Per Unit Charge) 5 units SQ HS ESTEFANIA Stop: 06/28/25 21:24 Last Admin: 05/29/25 22:47 Dose: 5 units Miscellaneous (Carbohydrates For Hypoglycemia ) 15 - 30 gm PO UD PRN PRN Reason: Hypoglycemia Protocol Stop: 06/28/25 22:11 Mupirocin (Mupirocin 2% Oint 22 Gm Tube) 1 appln EXT BID ESTEFANIA Stop: 06/29/25 08:59 Last Admin: 05/30/25 08:55 Dose: 1 appln Naloxone HCl (Naloxone Hcl 0.4 Mg/1 Ml Vial/Carp) 0.1 mg IV UD PRN PRN Reason: Opiate Overdose Stop: 06/28/25 21:18 Oxycodone HCl (Oxycodone Hcl Ir 5 Mg Tab (Immediate Release)) 5 mg PO Q4H PRN PRN Reason: Pain Stop: 06/12/25 20:24 Last Admin: 05/30/25 02:47 Dose: 5 mg PG Care Time/CCT Total # of Minutes Spent Total Time Spent with Patient: Total time spent is greater than 50% in coordination of care (as documented) at patient's floor/unit and/or counseling patient: Coding Level of Care Code 36436 IN/OBS CONSULT LVL 5,80M Diagnoses Closed subcapital fracture of neck of right femur S72.011A Preoperative cardiovascular examination Z01.810 Ischemic cardiomyopathy I25.5 CAD (coronary artery disease) I25.10 S/P ICD (internal cardiac defibrillator) procedure Z95.810
--- NOTE | 2025-05-30 10:14 | Orthopedic Consultation ---
Date of Service May 30, 2025 Assessment & Plan (1) Closed subcapital fracture of neck of right femur: 79-year-old male with significant cardiac history and a new diagnosis of right femoral neck fracture. This should be treated by a bipolar hemiarthroplasty. Case was discussed with anesthesia today at length. Awaiting full cardiology evaluation. The surgical orthopedic care is straightforward; however, the cardiac aftercare will be high level. Defer to cardiology and anesthesia with regard to timing of surgery and even consideration of transfer to higher level of care. No significant urgency for orthopedic intervention being a femoral neck fracture and somewhat impacted -less expectations for significant presurgical blood loss with an intracapsular fracture. N.p.o. status per cardiology, should they need any interventions. No plans for orthopedic surgery today with the questions regarding cardiology and fitness for anesthesia. If able to stay at [facility] for medical reasons, then would plan for bipolar hip hemiarthroplasty as early as tomorrow. This was discussed with the patient today. In the interim, he can be touchdown weightbearing on that side and even get to a chair if tolerable. History of Present Illness Reason for Consultation: Right hip fracture Requesting Physician: . Attending Physician: Trev Fofana MD 79-year-old male admitted from the emergency room with a right subcapital femoral neck fracture. Yesterday, [place] when he tripped and fell onto the right side. He had difficulty getting up. His friends helped him into his private vehicle and he drove home. Presented to the ER where the diagnosis of hip fracture was made. He has a significant cardiac history with recent admission in December from decompensated heart failure requiring mechanical ventilation. Allergies Allergy/AdvReac Type Severity Reaction Status Date / Time No Known Drug Allergies Allergy Verified 01/27/20 15:29 Home Medications Medication Instructions Recorded Confirmed Type carvedilol 3.125 mg tablet 3.125 mg PO BIDM 08/17/19 05/29/25 History furosemide 40 mg tablet 80 mg PO QAM PRN WEIGHT GAIN/FLUID 08/17/19 05/29/25 History RETENTION insulin glargine 100 unit/mL (3 30 unit subcut HS 08/17/19 05/29/25 History mL) subcutaneous pen (Lantus Solostar U-100 Insulin) losartan 25 mg tablet 25 mg PO QAM 08/17/19 05/29/25 History warfarin 5 mg tablet 10 mg PO PM 08/17/19 05/29/25 History clopidogrel 75 mg tablet 75 mg PO QAM 30 days #30 tabs 08/23/19 05/29/25 Rx acetaminophen 325 mg tablet 975 mg PO Q6H PRN Fever Or Pain 05/29/25 05/29/25 History amiodarone 200 mg tablet 200 mg PO BID 05/29/25 05/29/25 History atorvastatin 80 mg tablet 80 mg PO DAILYBL 05/29/25 05/29/25 History empagliflozin 10 mg tablet 10 mg PO DAILY 05/29/25 05/29/25 History (Jardiance) ezetimibe 10 mg tablet 10 mg PO QAM 05/29/25 05/29/25 History iron,carbonyl 65 mg-vitamin C 125 1 tab PO DAILY 05/29/25 05/29/25 History mg tablet,delayed release (Vitron-C) nitroglycerin 0.4 mg sublingual 0.4 mg sublingual Q5M PRN ches pain 05/29/25 05/29/25 History tablet Past Med/Surg History Problem List Acute kidney injury superimposed on chronic kidney disease (Acute) Elevated troponin (Acute) Hematoma of scalp (Acute) Multiple abrasions (Acute) Closed subcapital fracture of neck of right femur (Acute) Fall (Acute) Acute pain of right hip (Acute) Diabetes Preoperative cardiovascular examination Aortic stenosis Renal failure (ARF), acute on chronic Status post amputation of right great toe (~12/2019) DVT prophylaxis CKD (chronic kidney disease) stage 3, GFR 30-59 ml/min PAD (peripheral artery disease) (Chronic) History of open heart surgery 12 years ago, LoLoer S/P ICD (internal cardiac defibrillator) procedure Ischemic cardiomyopathy S/P single-chamber Medtronic AICD on 06/26/2012 for primary prevention of sudden cardiac given severe ischemic cardiomyopathy. His ejection fraction at the time of that procedure was in the range of 20% EF roughly 40% on echo 08/2019. 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 for which he underwent surgical resection of left ventricular aneurysm on 06/19/2012 at [facility] Left ventricular aneurysm s/p resection 2012 CHF (congestive heart failure) Medical History Abnormal EKG Diffuse deep T wave inversions in the anterior lateral precordial leads, age- indeterminate inferior infarction with inferior T wave inversions -- unchanged compared to the prior performed as an outpatient on 08/13/2017 (scanned to EMR) Osteomyelitis Poor historian Diabetes mellitus, type 2 On anticoagulant therapy Hypertension Amputation of right great toe Surgical History History of esophagogastroduodenoscopy (EGD) History of adenoidectomy History of tonsillectomy History of cataract surgery bilateral History of cardiac cath no intervention History of amputation of great toe R great toe amp by Dr. Petersen 08/18/19. LMA #5, atraumatic. VSS in PACU. No complications. History of angioplasty of peripheral vessel 08/21/2019 Summary: 1. Right lower [id number] to 90% heavily calcified proximal common iliac stenosis, mild to moderate diffuse SFA/popliteal disease, subtotally occluded anterior tibial artery, occluded posterior tibial artery. 2. Left lower extremitycalcified, mild diffuse iliac/COMMERCIAL REPORTER disease 3. Successful right common iliac artery stenting with 2 overlapping covered stents (Lifestream 9.0 x 38, 9.0 x 38). 4. Successful angioplasty of right anterior tibial artery with 3.0 balloon History of open heart surgery Family History Other Diabetes Social History Smoking Status: Former smoker Tobacco Type: Cigars packs per day: 2; Cigarettes Per Day: 12 year quit; Second Hand Exposure: No; Do You Dip or Chew Tobacco: No; Hx Alcohol Use: No Hx Substance Use: No Preferred Language: Sami Communication Ability: Effective Entry Level Truck Driver Required: No Beliefs That Will Affect Care: None marital status: Current Living Situation: Spouse Current Living Situation Comment: House spouse Feels Safe at Home: Yes Assistive Devices: Cane, Denture - Upper and Prosthesis Review of Systems All systems reviewed & are unremarkable except as noted in HPI & below. Physical Exam Right lower extremity: He has tenderness about the greater trochanter. No significant swelling or ecchymosis showing. He is neurovascularly intact. Irritable with logroll. Left lower extremity: Mature below-knee amputation. Constitutional WD/WN, vitals as above (Sleeping on arrival. Easily awakened but reverts to somnolence. ) no acute distress and not intoxicated appearing Respiratory normal respiratory effort; no labored breathing Cardiovascular Extremities: normal capillary refill Results & Data Results & Data Laboratory Results H & H 05/29/25 05/29/25 05/30/25 Range/Units 17:43 20:35 05:34 Hgb 13.1 L 13.1 L 11.3 L (14.0-18.0) g/dl Hct 42.9 41.3 L 38.0 L (42.0-52.0) % Coagulation 05/29/25 05/30/25 Range/Units 17:43 05:34 INR 2.9 H 1.6 H (0.9-1.1) Diagnostic Findings Radiographs of the hip and pelvis demonstrate suspicion of a impacted femoral neck fracture. This is more clearly seen on a CT scan of his pelvis. Displaced femoral neck fracture. There is varus alignment and some inferior neck comminution. Not a candidate for percutaneous screw fixation. PG Care Time/CCT Total # of Minutes Spent Total Time Spent with Patient: Total time spent is greater than 50% in coordination of care (as documented) at patient's floor/unit and/or counseling patient: Coding Level of Care Code 07466 IN/OBS CONSULT LVL 4,60M Diagnoses Closed subcapital fracture of neck of right femur S72.011A
--- NOTE | 2025-05-30 10:15 | Communication Note ---
Date of Service: May 30, 2025 pt Chart reviewed. pt is high risk from an anesthesia standpoint. Also, concerned that he may have a similar episode to his December 2024 decompensated HF e vent. We rarely use milrinone in our ORs. Pt will have a general anesthesia, have to have a pressor run during the case, and will experience fluid shits that need resuscitation. Would patients operative and post operative course be better serve at a tertiary facility that regularly sees patients with his medical history? This should be considered before proceeding to the OR at [facility].
[2025-05-30] MEDS: ACETAMINOPHEN 500 MG TAB PO SCH (12:12)
--- NOTE | 2025-05-30 12:43 | Discharge Summary ---
Discharge Summary Date of Service May 30, 2025 Principal Dx & Hospital Course #1 = Principal Diagnosis (1) Closed subcapital fracture of neck of right femur: Assessment and plan below following discussion of case with ED provider and reviewing patient history/pertinent normal/abnormal diagnostic test results. Traumatic right hip fracture Troponin elevation in the setting of elevated BP and ARF on CKD, patient without chest pain or SOB symptoms. chronic systolic heart failure secondary ischemic cardiomyopathy (EF 20% TTE 2024) status post ICD, patient euvolemic PAF/LV aneurysm status post surgery on Coumadin mild MR CAD status post stent (2023)/PVD as per records symptomatic VT hyperlipidemia, on statin Rx COPD, pulmonary hypertension as per records, lung status at baseline DM2, insulin requiring, reasonable control as of recent hemoglobin A1c of 7.7 last month chronic anemia, hemoglobin at baseline history left BKA history MRSA past tobacco abuse Admit to med/tele given troponin elevation Analgesia Facilitate home BP meds Follow troponin Orthopedics consult RE traumatic right hip fracture (ER provider already in touch with [facility] on-call.) N.p.o. after midnight in anticipation of procedure in a.m. Cardiology consult for preop eval given high risk for postop cardiac complications given comorbidities Hold antiplatelet Rx and Coumadin for now, reverse INR given cutaneous bleed and possible surgery in a.m. Baseline UA, monitor creatinine response to gentle IV hydration given systolic dysfunction. Hold losartan until creatinine back to baseline Basal bolus insulin adjusted for n.p.o. status, ISS BG goal [id number] DVT prophylaxis. SCDs if INR less than 2 while Coumadin on hold Full code Patient requesting for daughter to be given updates regarding care. Domingamichelle Miranda, contact #[phone]. Text document was generated using [employer] voice recognition software. It may contain grammatical or spelling errors. Kindly contact undersigned for clarification of any documentation item in question. 05/30 Patient still having significant left hip pain Continue as needed oxycodone, Dilaudid Orthopedic service recommending surgical intervention Discussed with cardiology service, in light of patient's extensive cardiac history including inoperable multivessel coronary disease, ischemic cardiomyopathy EF 15%, status post ICD, history of recurrent V. tach, advanced age, patient is deemed to be extremely high risk for postoperative cardiopulmonary complications Cardiology service recommending patient to be transferred to tertiary level of care Discussed with the [facility] orthopedic service, he has been accepted to [facility] under medical service Currently, patient is medically stable overall per Cardiology SVC: coumadin on hold, start heparin plavix on hold, start ASA Notes For Next Care Provider Medication Changes From Visit as per med rec Admission HPI Per Admitting Provider History obtained from patient, family, and records. Medical history significant for chronic systolic heart failure secondary ischemic cardiomyopathy (EF 20% TTE 2024) status post ICD, PAF/LV aneurysm status post surgery on Coumadin, mild MR CAD status post stent (2023)/PVD status post surgery, symptomatic VT, hypertension, hyperlipidemia, COPD, pulmonary hypertension as per records, lung nodule as per records, DM2, insulin requiring, CRI (baseline creatinine 1.6-1.7), chronic anemia (baseline hemoglobin of 12- 13), history left BKA, history of MRSA, past tobacco abuse. Recent [facility] confinement last December 2024 for respiratory failure secondary to CHF/cardiogenic shock status post intubation. Symptomatic VT requiring cardioversion prior to confinement. Extensive CAD on diagnostic cardiac catheterization. No PCI performed. Patient eventually extubated with stable BP. Patient got out of his truck to go to the bathroom when he tripped on something. Patient fell on his right side subsequently striking in his head and landing on his right side. Right upper extremity bruising noted. Achy right hip pain. Patient had trouble getting up. Denies chest pain, SOB, LOC. SBP 160s upon arrival at the ER. 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 Admission Exam Per Admitting Provider GENERAL: Slightly uncomfortable, pleasant, tremulous, slightly hard of hearing, no respiratory distress SKIN: Pallor, warm HEENT: Contusion over forehead, alopecia, pale palpebral conjunctivae, no ptosis, dry buccal mucosa, nasal cannula in place NECK : Supple, no tenderness CHEST : Decreased breath sounds , no tenderness HEART : Diminished S1-S2, systolic murmur ABDOMEN: Some distention, nontender EXTREMITIES : Right hip tenderness, LLE amputation stump, RUE ecchymosis NEUROLOGIC : Coherent, no facial asymmetry, mild hearing impairment, tremulous, gait and stance not assessed Discharge Exam General- oriented x 3, not in distress, speaks in sentences with no effort or accessory muscle use Eyes- anicteric Neck- no JVD Lungs- clear breath sounds bilaterally, no rales/wheezes Heart- normal rate, regular rhythm; no murmurs Abdomen- normal bowel sounds, nondistended, soft, nontender Extremities- no pretibial edema, no calf tenderness Neuro- alert, oriented x 3; no gross focal neurologic deficits Skin- warm & dry Updated Medication List Medication Instructions Recorded Confirmed Type carvedilol 3.125 mg tablet 3.125 mg PO BIDM 08/17/19 05/29/25 History furosemide 40 mg tablet 80 mg PO QAM PRN WEIGHT GAIN/FLUID 08/17/19 05/29/25 History RETENTION insulin glargine 100 unit/mL (3 30 unit subcut HS 08/17/19 05/29/25 History mL) subcutaneous pen (Lantus Solostar U-100 Insulin) losartan 25 mg tablet 25 mg PO QAM 08/17/19 05/29/25 History warfarin 5 mg tablet 10 mg PO PM 08/17/19 05/29/25 History clopidogrel 75 mg tablet 75 mg PO QAM 30 days #30 tabs 08/23/19 05/29/25 Rx acetaminophen 325 mg tablet 975 mg PO Q6H PRN Fever Or Pain 05/29/25 05/29/25 History amiodarone 200 mg tablet 200 mg PO BID 05/29/25 05/29/25 History atorvastatin 80 mg tablet 80 mg PO DAILYBL 05/29/25 05/29/25 History empagliflozin 10 mg tablet 10 mg PO DAILY 05/29/25 05/29/25 History (Jardiance) ezetimibe 10 mg tablet 10 mg PO QAM 05/29/25 05/29/25 History iron,carbonyl 65 mg-vitamin C 125 1 tab PO DAILY 05/29/25 05/29/25 History mg tablet,delayed release (Vitron-C) nitroglycerin 0.4 mg sublingual 0.4 mg sublingual Q5M PRN ches pain 05/29/25 05/29/25 History tablet Hospital Stay Data Consultations 05/29/25 19:10 Consult Orthopedic Surgery Routine 05/29/25 20:04 ED Decision to Admit Stat 05/30/25 04:27 Consult Cardiology Routine Procedures Performed Operation Date: 05/30/25 08:30 <No data on this case meets the specified criteria> Diagnostic Imagining Performed Laboratory Results WBC 7.54 K/ul (4.8-10.8) 05/30/25 05:34 RBC 4.76 M/uL (4.70-6.10) 05/30/25 05:34 Hgb 11.3 g/dl (14.0-18.0) L 05/30/25 05:34 Hct 38.0 % (42.0-52.0) L 05/30/25 05:34 MCV 79.8 fL (80.0-100.0) L 05/30/25 05:34 MCH 23.7 pg (25.0-34.0) L 05/30/25 05:34 MCHC 29.7 g/dL (32.0-36.0) L 05/30/25 05:34 RDW Std Deviation 44.8 fL (36.4-46.3) 05/30/25 05:34 RDW Coeff of Yenny 15.5 % (11.5-14.5) H 05/30/25 05:34 Plt Count 169 K/uL (130-400) 05/30/25 05:34 MPV 10.2 fL (9.4-12.4) 05/30/25 05:34 Immature Gran % (Auto) 0.3 % 05/30/25 05:34 Neut % (Auto) 79.0 % 05/30/25 05:34 Lymph % (Auto) 5.8 % 05/30/25 05:34 [place] % (Auto) 12.1 % 05/30/25 05:34 Eos % (Auto) 2.3 % 05/30/25 05:34 Baso % (Auto) 0.5 % 05/30/25 05:34 Neut # (Auto) 5.96 K/uL (1.40-6.50) 05/30/25 05:34 Lymph # (Auto) 0.44 K/uL (1.20-3.40) L 05/30/25 05:34 Towner # (Auto) 0.91 K/uL (0.11-0.59) H 05/30/25 05:34 Eos # (Auto) 0.17 K/uL (0.00-0.50) 05/30/25 05:34 Baso # (Auto) 0.04 K/uL (0.00-0.20) 05/30/25 05:34 Immature Gran # (Auto) 0.02 K/uL (0.01-0.20) 05/30/25 05:34 PT 16.5 Seconds (9.0-12.0) H 05/30/25 05:34 INR 1.6 (0.9-1.1) H 05/30/25 05:34 Sodium 137 mmol/L (136-145) 05/30/25 05:34 Potassium 4.3 mmol/L (3.5-5.1) 05/30/25 05:34 Chloride 105 mmol/L (98-107) 05/30/25 05:34 Carbon Dioxide 28 mmol/L (21-32) 05/30/25 05:34 Anion Gap 4 (3-11) 05/30/25 05:34 BUN 61 mg/dl (6-23) H 05/30/25 05:34 Creatinine 1.87 mg/dl (0.6-1.4) H 05/30/25 05:34 Est Cr Clr Drug Dosing 34.1 ml/min 05/30/25 05:34 eGFR 36.12 05/30/25 05:34 BUN/Creatinine Ratio 32.6 (10-20) H 05/30/25 05:34 Glucose 88 mg/dl (70-99(Fasting)) 05/30/25 05:34 POC Glucose 87 mg/dl (70-99) 05/30/25 11:10 Calcium 9.6 mg/dl (8.6-10.3) 05/30/25 05:34 Magnesium 2.3 mg/dl (1.7-2.4) 05/29/25 20:09 Total Bilirubin 0.6 mg/dl (0.2-1.0) 05/29/25 17:43 AST 16 U/L (13-39) 05/29/25 17:43 ALT 13 U/L (7-52) 05/29/25 17:43 Alkaline Phosphatase 104 U/L (34-104) 05/29/25 17:43 Total Creatine Kinase 89 U/L (30-223) 05/29/25 20:09 Troponin I High Sens 52.9 pg/ml (0-20) H* D 10/19/25 05:34 Total Protein 7.5 gm/dl (6.0-8.3) 05/29/25 17:43 Albumin 3.6 gm/dl (3.4-5.0) 05/29/25 17:43 Globulin 3.9 gm/dl (2.5-4.0) 05/29/25 17:43 Albumin/Globulin Ratio 0.9 (0.9-2) 05/29/25 17:43 Urine Color Yellow 05/29/25 18:08 Urine Appearance Clear (Clear) 05/29/25 18:08 Urine pH 5.5 (4.5-7.5) 05/29/25 18:08 Ur Specific [place] 1.015 (1.000-1.030) 05/29/25 18:08 Urine Protein Negative (Negative) 05/29/25 18:08 Urine Glucose (UA) 2+ (Negative) H 05/29/25 18:08 Urine Ketones Negative (Negative) 05/29/25 18:08 Urine Blood Trace-intact (Negative) H 05/29/25 18:08 Urine Nitrite Negative (Negative) 05/29/25 18:08 Urine Bilirubin Negative (Negative) 05/29/25 18:08 Urine Urobilinogen Negative (Negative) 05/29/25 18:08 Ur Leukocyte Esterase 2+ (Negative) H 05/29/25 18:08 Urine WBC (Auto) >50 /hpf (0-5) H 05/29/25 18:08 Urine RBC (Auto) 0-2 /hpf (0-2) 05/29/25 18:08 U Hyaline Cast (Auto) 0-2 /lpf (0-2) 05/29/25 18:08 U Epithel Cells (Auto) 0-2 /hpf (0-2) 05/29/25 18:08 Urine Bacteria (Auto) None Seen (None Seen) 05/29/25 18:08 Hyaline Casts Present /lpf (None Presnt) A 05/29/25 18:08 Urine Yeast Present (None Prsent) A 05/29/25 18:08 Urine Comment 05/29/25 18:08 Nasal Screen MRSA (PCR) Positive (Negative) A 05/29/25 Unknown Ethyl Alcohol mg/dL < 10.0 mg/dl (<10.0) 05/29/25 18:57 Blood Type A Positive 05/29/25 20:35 Antibody Screen NEGATIVE 05/29/25 20:[address] 05/29/25 17:53 CT CERVICAL SPINE WITHOUT CONTRAST: HISTORY: PAIN TECHNIQUE: Noncontrast CT examination of the cervical spine is performed. Coronal and sagittal reformats were created. COMPARISON: None. FINDINGS: CERVICAL SPINE: There is no significant vertebral body height loss. No acute traumatic fracture identified. There is no significant spondylolisthesis. Multilevel degenerative changes characterized by disc osteophyte complex, bilateral facet and uncovertebral hypertrophy resulting and neural foraminal narrowing at multiple levels, worst at mid to lower spine. Visualized soft tissues of neck are unremarkable. Emphysema. IMPRESSION: No acute traumatic fracture of the cervical spine. Multilevel degenerative changes as above Electronically signed by Oz Alanis 05-29-2025 7:56 PM Chest X-Ray 05/29/25 17:53 Single frontal view of the chest Comparison made to prior exam dated 08/17/2019 Impression Left chest wall intracardiac device. Postoperative changes median sternotomy. Advanced degenerative changes of the shoulders. Mild pulmonary vas congestion. Cardiomegaly. This is unchanged when compared with prior exam. Electronically signed by Jamar Robles 05-29-2025 8:[address] 05/29/25 17:53 CT HEAD: HISTORY: Trauma TECHNIQUE: Noncontrast CT examination of the head is performed. Coronal and sagittal reformats were created. COMPARISON: None FINDINGS: There is no evidence of intracranial hemorrhage, focal mass effect or midline shift. No fluid collection is identified. The ventricular system is midline and symmetric. No evidence of acute major vascular territory infarction. Age-related involutional changes of the brain and chronic white matter ischemic changes. No calvarial fracture is identified. The paranasal sinuses and mastoids are well aerated. Cataract surgeries bilaterally. Small mastoid fluids. IMPRESSION: No acute intracranial process identified. Chronic findings as above Electronically signed by Oz Alanis 05-29-2025 7:56 PM Hip/Pelvis X-Ray 05/29/25 17:53 2 views right hip No comparison Impression Subcapital right femoral neck fracture which is mildly angulated. Advanced vascular calcifications. Electronically signed by Jamar Robles 05-29-2025 8:[address] 05/29/25 18:36 CT PELVIS WITHOUT CONTRAST: HISTORY: TRAUMA TECHNIQUE: CT of the pelvis was obtained without intravenous contrast. Coronal and sagittal reformats were created. COMPARISON: FINDINGS: Acute traumatic comminuted and impacted fractures of the subcapital right femur with the additional fractures in the base of the femoral head. Mild varus angulation. There is stent material and the right common iliac artery. IMPRESSION: Acute traumatic comminuted and impacted fractures of the subcapital right femur with varus angulation. Electronically signed by Oz Alanis 05-29-2025 7:56 PM Total Time Total Time Spent Total Time Spent (In Minutes): 60 minutes
[2025-05-30] MEDS: ASPIRIN 81 MG ECTAB PO SCH (13:05)
[2025-05-30 14:02] LABS: Hematocrit (blood only) 37.6 % (42.0-52.0); Hemoglobin 11.2 g/dl (14.0-18.0); Immature Granulocytes # (auto) 0.02 K/uL (0.01-0.20); Immature Granulocytes % (auto) 0.3 %; Mean Corpuscular Hemoglobin 24.1 pg (25.0-34.0); Mean Corpuscular Volume 81.0 fL (80.0-100.0); Platelet Count 154 K/uL (130-400); RDW Standard Deviation 45.7 fL (36.4-46.3); Red Blood Count 4.64 M/uL (4.70-6.10); White Blood Count 7.04 K/ul (4.8-10.8)
[2025-05-30 14:47] LABS: ANTI-Xa, UFH(UnfractionatedHep < 0.10 IU/ml (0.3-0.7)
[2025-05-30 14:56] LABS: INR 1.4 (0.9-1.1); Partial Thromboplastin Time 37 Seconds (21-31); Prothrombin Time 14.1 Seconds (9.0-12.0)
[2025-05-30] MEDS: Heparin IV Adult Wt-Based Low-Dose *NO* INITIAL Bolus Protocol IV STA (15:03)
[2025-05-30] MEDS: HEPARIN 25000 UNIT/500 ML D5W 25,000 UNITS/500 ML BAG IV SCH (15:11)
[2025-05-30 15:29] VITALS: BP 124/72; PULSE 71; TEMP 97.7; O2SAT 96
--- NOTE | 2025-05-30 22:11 | Electrocardiogram Report ---
Test Reason : Blood Pressure : */* mmHG Vent. Rate : 66 BPM Atrial Rate : * BPM P-R Int : * ms QRS Dur : 122 ms QT Int : 430 ms P-R-T Axes : * -6 159 degrees QTcB Int : 450 ms Sinus rhythm Anterolateral infarct , age undetermined Abnormal ECG When compared with ECG of 18-Aug-2019 14:53, No significant change Confirmed by Mikey Oshea ([id number]) on 05/30/2025 10:11:06 PM Referred By: REFERRED SELF Confirmed By: Mikey Oshea
== END 2025-05-30 19:49 | disposition short-term general hospital (02) | DRG 536 ==
LOC: EDBD → ED 17:36 → 2N 20:23 → EDBD 20:23 → 2N 21:45